=== PATIENT | male | born 1965 | race Caucasian/White ===

== ENCOUNTER 2017-02-18 11:23 | Emergency (ER) | payer OTHER ==
[~2017-02-18] VITALS: Ht 190.5 cm; Wt 88.5 kg
[~2017-02-18 11:23] MED LIST: ACET-929; AZITTAB11 PO; CELE100C82 PO; CYCL10TA3 PO; DIVA500T4; HYDR-2595; MECL25TA94 PO; SULF-169; [UNRECOGNIZED DRUG - OTHER] PO; ibuprofen PO
[2017-02-18 13:15] VITALS: BP 114/78
== END 2017-02-18 13:56 | disposition home or self-care (01) ==
LOC: ER 12:11
DX: R56.9 Unspecified convulsions (principal); F17.210 Nicotine dependence, cigarettes, uncomplicated; Z88.6 Allergy status to analgesic agent; Z91.018 Allergy to other foods; Z59.0 Homelessness; Z76.0 Encounter for issue of repeat prescription

== ENCOUNTER 2019-06-27 07:58 | Emergency (ER) | payer MEDICARE, MEDICAID ==
[~2019-06-27] VITALS: Ht 190.5 cm; Wt 96.2 kg
[2019-06-27 08:10] VITALS: BP 118/82
== END 2019-06-27 09:01 | disposition home or self-care (01) ==
LOC: ER 08:00
DX: L25.9 Unspecified contact dermatitis, unspecified cause (principal); F17.210 Nicotine dependence, cigarettes, uncomplicated; Z87.11 Personal history of peptic ulcer disease; Z76.0 Encounter for issue of repeat prescription; Z59.0 Homelessness; Z88.6 Allergy status to analgesic agent; Z79.899 Other long term (current) drug therapy

== ENCOUNTER 2019-07-26 10:09 | Emergency (ER) | payer MEDICARE, MEDICAID ==
[~2019-07-26] VITALS: Ht 190.5 cm; Wt 95.7 kg
[2019-07-26 10:30] VITALS: BP 132/75
== END 2019-07-26 11:27 | disposition home or self-care (01) ==
LOC: ER 10:15
DX: G40.909 Epilepsy, unspecified, not intractable, without status epilepticus (principal); Z76.0 Encounter for issue of repeat prescription; F17.210 Nicotine dependence, cigarettes, uncomplicated; Z88.8 Allergy status to other drugs, medicaments and biological substances; Z88.6 Allergy status to analgesic agent; Z79.899 Other long term (current) drug therapy; Z79.1 Long term (current) use of non-steroidal anti-inflammatories (NSAID)

== ENCOUNTER 2019-10-03 12:58 | Emergency (ER) | payer MEDICARE, MEDICAID ==
[~2019-10-03] VITALS: Ht 190.5 cm; Wt 95.7 kg
[2019-10-03 13:20] VITALS: BP 133/90
== END 2019-10-03 15:26 | disposition home or self-care (01) ==
LOC: ER 12:58
DX: G40.909 Epilepsy, unspecified, not intractable, without status epilepticus (principal); F17.210 Nicotine dependence, cigarettes, uncomplicated; Z87.11 Personal history of peptic ulcer disease; Z76.0 Encounter for issue of repeat prescription; Z59.0 Homelessness; Z88.8 Allergy status to other drugs, medicaments and biological substances

== ENCOUNTER 2019-11-28 14:22 | Emergency (ER) | payer MEDICARE, MEDICAID ==
[~2019-11-28] VITALS: Ht 190.5 cm; Wt 95.7 kg
[2019-11-28 14:41] VITALS: BP 125/85
== END 2019-11-28 16:30 | disposition home or self-care (01) ==
LOC: ER 14:22
DX: G40.909 Epilepsy, unspecified, not intractable, without status epilepticus (principal); Z76.0 Encounter for issue of repeat prescription; F17.210 Nicotine dependence, cigarettes, uncomplicated; Z88.6 Allergy status to analgesic agent; Z88.8 Allergy status to other drugs, medicaments and biological substances

== ENCOUNTER 2020-03-07 17:52 | Emergency (ER) | payer OTHER, MEDICAID | END 2020-03-07 22:42 | disposition left against medical advice (07) | LOC: EDUNIT# 17:52 → ER 17:52 → EDBD 17:52 → ER 22:42 | DX: R07.9 Chest pain, unspecified (principal); Z53.21 Procedure and treatment not carried out due to patient leaving prior to being seen by health care provider | CPT/HCPCS: 93005 ==

== ENCOUNTER → 2020-03-20 | Emergency (ER) | payer OTHER, MEDICAID ==
[~2020-03-20] VITALS: Ht 190.5 cm; Wt 95.3 kg
[~2020-03-20] MED LIST changes: +ETOMIDATE (2MG/ML) 20ML VIAL IV ONE; +SUCCINYLCHOLINE CHLORIDE 20 MG/ML 10ML VIAL IV ONE; +cefTRIAXone 1GM/50ML D5W 50 ML IV ONE
[2020-03-20 10:50] VITALS: BP 121/79
[2020-03-20 10:55] LABS: Basophils # (auto) 0 10 ^3/uL (0-0.2); Basophils % (auto) 0.4 % (0.0-2.0); Eosinophils # (auto) 0.1 10 ^3/uL (0-0.8); Eosinophils % (auto) 0.6 % (0.0-7.0); Hematocrit 46.5 % (41.0-53.0); Hemoglobin 15.8 g/dL (13.5-17.5); Lymphocytes # (auto) 1.4 10 ^3/uL (0.4-5.4); Lymphocytes % (auto) 16.3 % (10.0-50.0); Mean Corpuscular Hemoglobin 32.3 pg (28.0-32.0); Mean Corpuscular Hgb Conc. 33.9 g/dL (32.0-36.0); Mean Corpuscular Volume 95.4 fL (80.0-100.0); Monocytes % (auto) 11.4 % (0.0-12.0); Neutrophils # (auto) 6.1 10 ^3/uL (1.6-8.6); Neutrophils % (auto) 71.3 % (37.0-80.0); Nucleated Red Blood Cells % 0.1 %; Platelet Count (auto) 285 10^3/uL (140-450); Red Blood Cells 4.88 10^6/uL (4.5-5.90); Red Cell Distribution Width 13.3 % (11.8-14.3); White Blood Cell 8.6 10^3/uL (4.4-10.8)
[2020-03-20 11:07] LABS: Amphetamine Screen, Urine NEGATIVE (NEGATIVE); Barbiturate Scree,Urine NEGATIVE (NEGATIVE); Benzodiazephine Screen, Urine NEGATIVE (NEGATIVE); Cannabinoid Screen, Urine NEGATIVE (NEGATIVE); Cocaine Screen, Urine NEGATIVE (NEGATIVE); Opiate Scree,Urine NEGATIVE (NEGATIVE); Phencyclidine Screen, Urine NEGATIVE (NEGATIVE)
== END | disposition home or self-care (01) ==
LOC: EDUNIT# 10:06 → ER 10:19 → EDBD 10:19
DX: L03.113 Cellulitis of right upper limb (principal); Z88.6 Allergy status to analgesic agent; Z88.8 Allergy status to other drugs, medicaments and biological substances
CPT/HCPCS: 36415; 80307; 85025; 96374; 99283; J0696

== ENCOUNTER 2020-05-09 15:33 | Emergency (ER) | payer OTHER, MEDICAID ==
[~2020-05-09 15:33] MED LIST changes: -ETOMIDATE (2MG/ML) 20ML VIAL IV ONE; -SUCCINYLCHOLINE CHLORIDE 20 MG/ML 10ML VIAL IV ONE; -cefTRIAXone 1GM/50ML D5W 50 ML IV ONE
== END 2020-05-09 16:08 | disposition left against medical advice (07) ==
LOC: ER 15:33
DX: R53.1 Weakness (principal); Z53.21 Procedure and treatment not carried out due to patient leaving prior to being seen by health care provider
CPT/HCPCS: 93005

== ENCOUNTER 2020-05-27 21:29 | Emergency (ER) | payer OTHER, MEDICAID ==
[~2020-05-27] VITALS: Ht 182.9 cm; Wt 108.9 kg
[2020-05-27 22:46] LABS: Basophils # (auto) 0.1 10 ^3/uL (0-0.2); Eosinophils # (auto) 0.2 10 ^3/uL (0-0.8); Eosinophils % (auto) 2.1 % (0.0-7.0); Hemoglobin 14.7 g/dL (13.5-17.5); Lymphocytes # (auto) 2.7 10 ^3/uL (0.4-5.4); Lymphocytes % (auto) 34.7 % (10.0-50.0); Mean Corpuscular Hemoglobin 31.7 pg (28.0-32.0); Mean Corpuscular Hgb Conc. 33.3 g/dL (32.0-36.0); Mean Corpuscular Volume 95.2 fL (80.0-100.0); Monocytes # (auto) 0.9 10 ^3/uL (0-1.3); Monocytes % (auto) 11.8 % (0.0-12.0); Neutrophils % (auto) 50.4 % (37.0-80.0); Nucleated Red Blood Cells % 0.1 %; Platelet Count (auto) 241 10^3/uL (140-450); Red Blood Cells 4.62 10^6/uL (4.5-5.90); Red Cell Distribution Width 13.4 % (11.8-14.3); White Blood Cell 7.9 10^3/uL (4.4-10.8)
[2020-05-27 23:02] LABS: Partial Thromboplastin Time 23.5 sec (23.0-31.2)
[2020-05-27 23:07] LABS: Alanine Aminotransferase 75 U/L (16-61); Albumin 3.3 g/dL (3.4-5.0); Anion Gap 9 (5-15); Aspartate Aminotransferase 37 U/L (15-37); Blood Urea Nitrogen 9 mg/dL (7-18); Calcium 8.4 mg/dL (8.5-10.1); Carbon Dioxide 26 mmol/L (21-32); Chloride 105 mmol/L (98-107); GFR African American 114 mL/min; GFR Non-African American 94 mL/min; Glucose 102 mg/dL (74-106); Magnesium 2.4 mg/dL (1.6-2.6); Potassium 3.2 mmol/L (3.5-5.1); Sodium 140 mmol/L (136-145)
[2020-05-27] MEDS ORDERED: THIAMINE IV ONE (23:15)
[2020-05-27] MEDS ORDERED: SODIUM CHLORIDE 0.9% IV ONE (23:15)
[2020-05-27 23:19] LABS: Alkaline Phosphatase 40 U/L (45-117); Bilirubin, Total 0.5 mg/dL (0.2-1.0); Total Protein 6.9 g/dL (6.4-8.2)
[2020-05-27] MEDS ORDERED: THIAMINE 100mg/ml INJ (200mg/2ml VIAL) ONE (23:28)
[2020-05-28 00:33] LABS: Urine Bacteria NONE SEEN /hpf (None Seen); Urine Blood Negative /uL (Negative); Urine Specific Gravity 1.005 (1.001-1.035); Urine WBC <1 /hpf (0 - 3)
[2020-05-28 00:54] LABS: Amphetamine Screen, Urine NEGATIVE (NEGATIVE); Barbiturate Scree,Urine NEGATIVE (NEGATIVE); Benzodiazephine Screen, Urine NEGATIVE (NEGATIVE); Cannabinoid Screen, Urine NEGATIVE (NEGATIVE); Cocaine Screen, Urine NEGATIVE (NEGATIVE); Opiate Scree,Urine NEGATIVE (NEGATIVE); Phencyclidine Screen, Urine NEGATIVE (NEGATIVE)
[2020-05-28 03:30] VITALS: BP 106/68
== END 2020-05-28 03:42 | disposition home or self-care (01) ==
LOC: ER 21:29 → EDBD 21:29 → ER 05-28 03:42
DX: F10.239 Alcohol dependence with withdrawal, unspecified (principal); R42 Dizziness and giddiness; M48.00 Spinal stenosis, site unspecified; F17.210 Nicotine dependence, cigarettes, uncomplicated; Z59.0 Homelessness; Z88.6 Allergy status to analgesic agent; Z88.8 Allergy status to other drugs, medicaments and biological substances; Y90.9 Presence of alcohol in blood, level not specified
CPT/HCPCS: 36415; 70450; 71045; 80053; 80307; 80320; 81001; 82140; 83735; 83880; 84484; 85025; 85379; 85610; 85730; 93005; 96365; 99285; J3411; J7030

== ENCOUNTER 2020-09-27 18:48 | Emergency (ER) | payer OTHER, MEDICAID ==
[~2020-09-27] VITALS: Ht 190.5 cm; Wt 90.7 kg
[2020-09-27 19:15] VITALS: BP 131/94
[2020-09-27] MEDS ORDERED: GABAPENTIN 300 MG CAP PO ONE (19:30)
== END 2020-09-27 23:18 | disposition left against medical advice (07) ==
LOC: ER 18:48 → EDSEX 18:48 → EDBD 18:48 → ER 23:18
DX: M54.12 Radiculopathy, cervical region (principal); F17.210 Nicotine dependence, cigarettes, uncomplicated; Z79.899 Other long term (current) drug therapy; Z88.8 Allergy status to other drugs, medicaments and biological substances; Z88.6 Allergy status to analgesic agent

== ENCOUNTER 2021-04-03 17:05 | Emergency (ER) | payer OTHER, MEDICAID ==
[~2021-04-03] VITALS: Ht 190.5 cm; Wt 106.6 kg
[2021-04-03 18:45] LABS: Basophils # (auto) 0.1 10 ^3/uL (0-0.2); Basophils % (auto) 0.9 % (0.0-2.0); Eosinophils # (auto) 0.1 10 ^3/uL (0-0.8); Eosinophils % (auto) 1.5 % (0.0-7.0); Hematocrit 45.2 % (41.0-53.0); Hemoglobin 16.2 g/dL (13.5-17.5); Lymphocytes # (auto) 3.5 10 ^3/uL (0.4-5.4); Lymphocytes % (auto) 35.3 % (10.0-50.0); Mean Corpuscular Hemoglobin 33.4 pg (28.0-32.0); Mean Corpuscular Hgb Conc. 35.7 g/dL (32.0-36.0); Mean Corpuscular Volume 93.5 fL (80.0-100.0); Monocytes # (auto) 1.1 10 ^3/uL (0-1.3); Monocytes % (auto) 10.8 % (0.0-12.0); Neutrophils # (auto) 5.1 10 ^3/uL (1.6-8.6); Neutrophils % (auto) 51.5 % (37.0-80.0); Nucleated Red Blood Cells % 0.1 %; Platelet Count (auto) 307 10^3/uL (140-450); Red Blood Cells 4.84 10^6/uL (4.5-5.90); Red Cell Distribution Width 13.1 % (11.8-14.3); White Blood Cell 9.8 10^3/uL (4.4-10.8)
[2021-04-03 19:03] LABS: Albumin 4.1 g/dL (3.4-5.0); Calcium 8.9 mg/dL (8.5-10.1); Potassium 3.9 mmol/L (3.5-5.1)
[2021-04-03 19:06] LABS: BUN/Creatinine Ratio 14.3; Bilirubin, Total 0.4 mg/dL (0.2-1.0)
[2021-04-03] MEDS ORDERED: IOHEXOL 300 MG/ML 100ML BOTTLE IJ ONE ×2 (19:42→21:08)
[2021-04-03] MEDS ORDERED: SUCCINYLCHOLINE CHLORIDE 20 MG/ML 10ML VIAL IV ONE (19:45)
[2021-04-03] MEDS ORDERED: ETOMIDATE (2MG/ML) 20ML VIAL IV ONE (19:45)
[2021-04-03] MEDS ORDERED: LORazepam 2MG/ML-1ML VIAL ONE (19:53)
[2021-04-03] MEDS ORDERED: LORazepam 2MG/ML-1ML VIAL IM ONE (20:00)
[2021-04-03] MEDS ORDERED: SODIUM CHLORIDE 0.9% 3,000 ML IV ONE (20:00)
[2021-04-03 21:20] LABS: Salicylate 4.6 mg/dL (2.8-20.0)
[2021-04-03 21:23] LABS: Acetaminophen < 2.0 ug/mL (10-30)
[2021-04-03 22:43] LABS: Amphetamine Screen, Urine NEGATIVE (NEGATIVE); Barbiturate Scree,Urine NEGATIVE (NEGATIVE); Benzodiazephine Screen, Urine NEGATIVE (NEGATIVE); Cannabinoid Screen, Urine NEGATIVE (NEGATIVE); Cocaine Screen, Urine NEGATIVE (NEGATIVE); Opiate Scree,Urine NEGATIVE (NEGATIVE); Phencyclidine Screen, Urine NEGATIVE (NEGATIVE)
[2021-04-04 02:20] VITALS: BP 78/42
== END 2021-04-04 02:46 | disposition home or self-care (01) ==
LOC: ER 17:05 → EDBD 17:05 → ER 04-04 02:46
DX: S30.1XXA Contusion of abdominal wall, initial encounter (principal); F10.129 Alcohol abuse with intoxication, unspecified; R51.9 Headache, unspecified; F17.210 Nicotine dependence, cigarettes, uncomplicated; Y90.8 Blood alcohol level of 240 mg/100 ml or more; Z59.0 Homelessness; Z91.018 Allergy to other foods; Z88.6 Allergy status to analgesic agent; Z79.899 Other long term (current) drug therapy; W18.09XA Striking against other object with subsequent fall, initial encounter; Y93.89 Activity, other specified; Y92.89 Other specified places as the place of occurrence of the external cause; Y99.8 Other external cause status
CPT/HCPCS: 36415; 70450; 71260; 74177; 80053; 80307; 80329; 82962; 85025; 96360; 96361; 99285; J0330; J2060; Q9967

== ENCOUNTER 2021-05-09 18:29 | Emergency (ER) | payer OTHER, MEDICAID ==
[~2021-05-09] VITALS: Ht 190.5 cm; Wt 83.5 kg
[2021-05-09] MEDS ORDERED: SODIUM CHLORIDE 0.9% 500 ML IV ONE (18:45)
[2021-05-09 19:13] LABS: Basophils # (auto) 0.1 10 ^3/uL (0-0.2); Eosinophils # (auto) 0.2 10 ^3/uL (0-0.8); Eosinophils % (auto) 2.1 % (0.0-7.0); Hematocrit 42.1 % (41.0-53.0); Hemoglobin 14.5 g/dL (13.5-17.5); Lymphocytes # (auto) 2.1 10 ^3/uL (0.4-5.4); Lymphocytes % (auto) 21.5 % (10.0-50.0); Mean Corpuscular Hemoglobin 33.2 pg (28.0-32.0); Mean Corpuscular Hgb Conc. 34.5 g/dL (32.0-36.0); Mean Corpuscular Volume 96.3 fL (80.0-100.0); Monocytes # (auto) 1.5 10 ^3/uL (0-1.3); Monocytes % (auto) 15.3 % (0.0-12.0); Neutrophils # (auto) 5.9 10 ^3/uL (1.6-8.6); Neutrophils % (auto) 60.1 % (37.0-80.0); Red Blood Cells 4.37 10^6/uL (4.5-5.90); Red Cell Distribution Width 13.4 % (11.8-14.3); White Blood Cell 9.9 10^3/uL (4.4-10.8)
[2021-05-09 19:28] LABS: Albumin 4.1 g/dL (3.4-5.0); Anion Gap 8 (5-15); Blood Urea Nitrogen 18 mg/dL (7-18); Calcium 8.5 mg/dL (8.5-10.1); Carbon Dioxide 26 mmol/L (21-32); Chloride 108 mmol/L (98-107); Glucose 83 mg/dL (74-106); Potassium 3.4 mmol/L (3.5-5.1); Sodium 142 mmol/L (136-145)
[2021-05-09 19:30] LABS: Alanine Aminotransferase 42 U/L (16-61); Aspartate Aminotransferase 33 U/L (15-37); BUN/Creatinine Ratio 18.2; GFR African American 102 mL/min; GFR Non-African American 84 mL/min
[2021-05-09 19:32] LABS: Alkaline Phosphatase 38 U/L (45-117); Bilirubin, Total 0.8 mg/dL (0.2-1.0); Blood Alcohol < 3.0 mg/dL (0-5); Total Protein 7.4 g/dL (6.4-8.2)
[2021-05-09 20:00] VITALS: BP 125/80
== END 2021-05-09 20:46 | disposition home or self-care (01) ==
LOC: EDBD 18:29 → ER 18:31
DX: M54.2 Cervicalgia (principal); G89.29 Other chronic pain; R51.9 Headache, unspecified; F10.20 Alcohol dependence, uncomplicated; R56.9 Unspecified convulsions; F17.210 Nicotine dependence, cigarettes, uncomplicated; Y90.0 Blood alcohol level of less than 20 mg/100 ml; Z88.6 Allergy status to analgesic agent; Z91.018 Allergy to other foods; Z79.899 Other long term (current) drug therapy; Z87.11 Personal history of peptic ulcer disease
CPT/HCPCS: 36415; 70450; 80053; 80320; 85025; 96360

== ENCOUNTER 2021-07-07 19:50 | Emergency (ER) | payer OTHER, MEDICAID ==
[~2021-07-07] VITALS: Ht 190.5 cm; Wt 81.6 kg
[2021-07-07] MEDS ORDERED: SODIUM CHLORIDE 0.9% 1,000 ML IV ONE (20:45)
[2021-07-07] MEDS ORDERED: MECLIZINE HCL 25 MG TAB PO ONE (21:00)
[2021-07-07 21:26] LABS: Basophils # (auto) 0.1 10 ^3/uL (0-0.2); Basophils % (auto) 1.1 % (0.0-2.0); Eosinophils # (auto) 0 10 ^3/uL (0-0.8); Eosinophils % (auto) 0.3 % (0.0-7.0); Hematocrit 45.5 % (41.0-53.0); Hemoglobin 15.6 g/dL (13.5-17.5); Lymphocytes # (auto) 1.4 10 ^3/uL (0.4-5.4); Mean Corpuscular Hemoglobin 32.4 pg (28.0-32.0); Mean Corpuscular Hgb Conc. 34.4 g/dL (32.0-36.0); Mean Corpuscular Volume 94.2 fL (80.0-100.0); Monocytes # (auto) 0.8 10 ^3/uL (0-1.3); Monocytes % (auto) 14.5 % (0.0-12.0); Neutrophils # (auto) 3.2 10 ^3/uL (1.6-8.6); Neutrophils % (auto) 59.1 % (37.0-80.0); Red Blood Cells 4.83 10^6/uL (4.5-5.90); Red Cell Distribution Width 12.9 % (11.8-14.3); White Blood Cell 5.5 10^3/uL (4.4-10.8)
[2021-07-07 21:39] LABS: Chloride 102 mmol/L (98-107); Potassium 3.8 mmol/L (3.5-5.1); Sodium 136 mmol/L (136-145)
[2021-07-07 21:45] LABS: Alanine Aminotransferase 58 U/L (16-61); Albumin 3.7 g/dL (3.4-5.0); Alkaline Phosphatase 44 U/L (45-117); Anion Gap 10 (5-15); Aspartate Aminotransferase 36 U/L (15-37); BUN/Creatinine Ratio 5.4; Bilirubin, Total 0.3 mg/dL (0.2-1.0); Blood Urea Nitrogen 5 mg/dL (7-18); Calcium 8.1 mg/dL (8.5-10.1); Carbon Dioxide 24 mmol/L (21-32); GFR African American 109 mL/min; GFR Non-African American 90 mL/min; Glucose 92 mg/dL (74-106); Total Protein 7.6 g/dL (6.4-8.2)
[2021-07-08 04:35] VITALS: BP 136/71
== END 2021-07-08 04:38 | disposition left against medical advice (07) ==
LOC: EDBD 19:50 → ER 19:53
DX: R42 Dizziness and giddiness (principal); F17.210 Nicotine dependence, cigarettes, uncomplicated; Z59.0 Homelessness; Z88.6 Allergy status to analgesic agent
CPT/HCPCS: 36415; 70450; 71045; 72125; 80053; 84484; 85025; 93005; 99285; J8597

== ENCOUNTER 2021-08-26 15:20 | Emergency (ER) | payer OTHER, MEDICAID ==
[2021-08-26] MEDS ORDERED: traMADol HCL 50 MG TAB PO ONE (16:00)
[2021-08-26 17:35] LABS: Urine Bacteria NONE SEEN /hpf (None Seen); Urine Blood Negative /uL (Negative); Urine Mucus FEW (None Seen); Urine Specific Gravity 1.024 (1.001-1.035); Urine WBC <1 /hpf (0 - 3)
[2021-08-26 18:14] VITALS: BP 125/73
== END 2021-08-26 18:18 | disposition home or self-care (01) ==
LOC: EDBD 15:20 → ER 15:20 → EDUNIT# 15:20 → ER 18:16
DX: R10.9 Unspecified abdominal pain (principal); M54.9 Dorsalgia, unspecified; F17.210 Nicotine dependence, cigarettes, uncomplicated; Z79.899 Other long term (current) drug therapy; Z79.2 Long term (current) use of antibiotics; Z88.6 Allergy status to analgesic agent; Z88.8 Allergy status to other drugs, medicaments and biological substances
CPT/HCPCS: 74176; 81001

== ENCOUNTER 2021-10-05 20:52 | Emergency (ER) | payer OTHER, MEDICAID ==
[~2021-10-05] VITALS: Ht 190.5 cm; Wt 81.6 kg
[2021-10-05 22:33] LABS: Basophils # (auto) 0.1 10 ^3/uL (0-0.2); Basophils % (auto) 0.9 % (0.0-2.0); Eosinophils # (auto) 0.2 10 ^3/uL (0-0.8); Hematocrit 45.4 % (41.0-53.0); Hemoglobin 15.1 g/dL (13.5-17.5); Lymphocytes # (auto) 1.9 10 ^3/uL (0.4-5.4); Lymphocytes % (auto) 22.4 % (10.0-50.0); Mean Corpuscular Hemoglobin 32.2 pg (28.0-32.0); Mean Corpuscular Hgb Conc. 33.3 g/dL (32.0-36.0); Mean Corpuscular Volume 96.8 fL (80.0-100.0); Monocytes # (auto) 1.4 10 ^3/uL (0-1.3); Monocytes % (auto) 16.4 % (0.0-12.0); Neutrophils % (auto) 58.3 % (37.0-80.0); Nucleated Red Blood Cells % 0.1 %; Red Blood Cells 4.69 10^6/uL (4.5-5.90); Red Cell Distribution Width 13.3 % (11.8-14.3); White Blood Cell 8.5 10^3/uL (4.4-10.8)
[2021-10-05 22:55] LABS: Calcium 8.2 mg/dL (8.5-10.1)
[2021-10-05 23:03] LABS: Albumin 3.7 g/dL (3.4-5.0); BUN/Creatinine Ratio 16.3; Bilirubin, Total 0.5 mg/dL (0.2-1.0); Total Protein 6.7 g/dL (6.4-8.2)
[2021-10-05] MEDS ORDERED: LACTATED RINGER'S 1,000 ML IV ONE (23:15)
[2021-10-05] MEDS ORDERED: POTASSIUM CHL 20MEQ/100ML 100 ML IV ONE (23:15)
[2021-10-06] MEDS ORDERED: levETIRAcetam 500 MG/5ML INJ IV ONE (04:16)
[2021-10-06 04:42] LABS: Amphetamine Screen, Urine POSITIVE (NEGATIVE); Barbiturate Scree,Urine NEGATIVE (NEGATIVE); Benzodiazephine Screen, Urine NEGATIVE (NEGATIVE); Cannabinoid Screen, Urine NEGATIVE (NEGATIVE); Cocaine Screen, Urine NEGATIVE (NEGATIVE); Opiate Scree,Urine NEGATIVE (NEGATIVE); Phencyclidine Screen, Urine NEGATIVE (NEGATIVE)
[2021-10-06 05:00] VITALS: BP 110/59
[2021-10-06] MEDS ORDERED: MECLIZINE HCL 25 MG TAB PO ONE (06:00)
== END 2021-10-06 07:46 | disposition home or self-care (01) ==
LOC: EDBD 20:52 → EDUNIT# 20:52 → ER 20:55
DX: R42 Dizziness and giddiness (principal); R20.0 Anesthesia of skin; M79.642 Pain in left hand; M79.641 Pain in right hand; F17.210 Nicotine dependence, cigarettes, uncomplicated; F10.20 Alcohol dependence, uncomplicated; Z20.822 Contact with and (suspected) exposure to COVID-19; Z87.11 Personal history of peptic ulcer disease; Z79.899 Other long term (current) drug therapy; Z88.1 Allergy status to other antibiotic agents; Z88.6 Allergy status to analgesic agent; Y90.7 Blood alcohol level of 200-239 mg/100 ml
CPT/HCPCS: 36415; 70450; 71045; 80053; 80307; 80320; 84484; 85025; 87426; 93005; 96361; 96365; 99285; J1953; J3480; J8597; J7060

== ENCOUNTER 2021-12-19 21:20 | Emergency (ER) | payer OTHER, MEDICAID ==
[~2021-12-19] VITALS: Ht 182.9 cm; Wt 77.1 kg
[2021-12-19 23:36] VITALS: BP 95/54
[2021-12-19 23:38] LABS: Basophils # (auto) 0.1 10 ^3/uL (0-0.2); Basophils % (auto) 1.5 % (0.0-2.0); Eosinophils # (auto) 0.2 10 ^3/uL (0-0.8); Eosinophils % (auto) 3.6 % (0.0-7.0); Hematocrit 39.4 % (41.0-53.0); Hemoglobin 13.7 g/dL (13.5-17.5); Lymphocytes # (auto) 2.6 10 ^3/uL (0.4-5.4); Lymphocytes % (auto) 41.6 % (10.0-50.0); Mean Corpuscular Hemoglobin 33.9 pg (28.0-32.0); Mean Corpuscular Hgb Conc. 34.8 g/dL (32.0-36.0); Mean Corpuscular Volume 97.4 fL (80.0-100.0); Monocytes # (auto) 0.7 10 ^3/uL (0-1.3); Monocytes % (auto) 11.2 % (0.0-12.0); Neutrophils # (auto) 2.6 10 ^3/uL (1.6-8.6); Neutrophils % (auto) 42.1 % (37.0-80.0); Nucleated Red Blood Cells % 0.1 %; Red Blood Cells 4.04 10^6/uL (4.5-5.90); Red Cell Distribution Width 13.8 % (11.8-14.3); White Blood Cell 6.2 10^3/uL (4.4-10.8)
[2021-12-20 00:02] LABS: Potassium 3.5 mmol/L (3.5-5.1)
[2021-12-20 00:06] LABS: Albumin 3.2 g/dL (3.4-5.0); BUN/Creatinine Ratio 9.5; Calcium 7.8 mg/dL (8.5-10.1)
[2021-12-20 00:09] LABS: Acetaminophen < 2.0 ug/mL (10-30); Bilirubin, Total 0.1 mg/dL (0.2-1.0); Salicylate 3.9 mg/dL (2.8-20.0); Total Protein 6.1 g/dL (6.4-8.2)
== END 2021-12-20 03:50 | disposition home or self-care (01) ==
LOC: EDBD 21:20 → ER 21:24
DX: F10.129 Alcohol abuse with intoxication, unspecified (principal); R56.9 Unspecified convulsions; F17.210 Nicotine dependence, cigarettes, uncomplicated; Z59.00 Homelessness unspecified; Z79.899 Other long term (current) drug therapy; Z88.6 Allergy status to analgesic agent; Z88.8 Allergy status to other drugs, medicaments and biological substances; Y90.7 Blood alcohol level of 200-239 mg/100 ml
CPT/HCPCS: 36415; 72040; 73502; 80053; 80320; 80329; 85025

== ENCOUNTER 2022-04-15 23:47 | Emergency (ER) | payer OTHER, MEDICAID ==
[~2022-04-15] VITALS: Ht 190.5 cm; Wt 99.8 kg
[2022-04-16 05:42] VITALS: BP 129/85
== END 2022-04-16 06:20 | disposition home or self-care (01) ==
LOC: EDBD 23:47 → ER 23:47
DX: S16.1XXA Strain of muscle, fascia and tendon at neck level, initial encounter (principal); F17.210 Nicotine dependence, cigarettes, uncomplicated; Z88.6 Allergy status to analgesic agent; W18.39XA Other fall on same level, initial encounter; Y93.89 Activity, other specified; Y92.89 Other specified places as the place of occurrence of the external cause; Y99.8 Other external cause status
CPT/HCPCS: 70450; 71045; 72125

== ENCOUNTER 2022-05-03 20:32 | Emergency (ER) | payer OTHER, MEDICAID ==
[~2022-05-03] VITALS: Ht 182.9 cm; Wt 72.6 kg
[2022-05-03 20:40] VITALS: BP 132/88
== END 2022-05-04 01:38 | disposition left against medical advice (07) ==
LOC: ER 20:32 → EDBD 20:32 → ER 05-04 01:38
DX: R07.9 Chest pain, unspecified (principal); F10.10 Alcohol abuse, uncomplicated; Z53.21 Procedure and treatment not carried out due to patient leaving prior to being seen by health care provider
CPT/HCPCS: 93005

== ENCOUNTER 2023-01-28 08:56 | Emergency (ER) | payer OTHER, MEDICAID ==
[~2023-01-28] VITALS: Ht 190.5 cm; Wt 88.6 kg
[2023-01-28 10:02] LABS: Urine WBC None Seen /hpf (0 - 3)
[2023-01-28 10:21] LABS: Urine Bacteria NONE SEEN /hpf (None Seen); Urine Blood Negative /uL (Negative); Urine Specific Gravity 1.006 (1.001-1.035)
[2023-01-28 10:23] LABS: Amphetamine Screen, Urine POSITIVE (NEGATIVE); Barbiturate Scree,Urine NEGATIVE (NEGATIVE); Cannabinoid Screen, Urine NEGATIVE (NEGATIVE)
[2023-01-28 10:30] LABS: Benzodiazephine Screen, Urine NEGATIVE (NEGATIVE); Cocaine Screen, Urine NEGATIVE (NEGATIVE); Opiate Scree,Urine NEGATIVE (NEGATIVE); Phencyclidine Screen, Urine NEGATIVE (NEGATIVE)
[2023-01-28 10:42] LABS: Basophils # (auto) 0.1 10 ^3/uL (0-0.2); Basophils % (auto) 1.4 % (0.0-2.0); Eosinophils # (auto) 0.2 10 ^3/uL (0-0.8); Eosinophils % (auto) 2.2 % (0.0-7.0); Hematocrit 46.2 % (41.0-53.0); Hemoglobin 15.7 g/dL (13.5-17.5); Lymphocytes # (auto) 1.5 10 ^3/uL (0.4-5.4); Lymphocytes % (auto) 19.1 % (10.0-50.0); Mean Corpuscular Hemoglobin 32.8 pg (28.0-32.0); Mean Corpuscular Hgb Conc. 34.1 g/dL (32.0-36.0); Mean Corpuscular Volume 96.3 fL (80.0-100.0); Monocytes # (auto) 0.9 10 ^3/uL (0-1.3); Monocytes % (auto) 11.6 % (0.0-12.0); Neutrophils # (auto) 5.1 10 ^3/uL (1.6-8.6); Neutrophils % (auto) 65.7 % (37.0-80.0); Nucleated Red Blood Cells % 0.1 %; Red Cell Distribution Width 12.6 % (11.8-14.3); White Blood Cell 7.8 10^3/uL (4.4-10.8)
[2023-01-28 10:55] LABS: INR 0.93 (0.9-1.15)
[2023-01-28 11:01] LABS: Albumin 3.6 g/dL (3.4-5.0); Calcium 8.9 mg/dL (8.5-10.1); Potassium 3.9 mmol/L (3.5-5.1)
[2023-01-28 11:05] LABS: BUN/Creatinine Ratio 13.7 (10.0-20.0); Bilirubin, Total 0.4 mg/dL (0.2-1.0); Total Protein 7.2 g/dL (6.4-8.2)
[2023-01-28] MEDS ORDERED: CLINDAMYCIN 600MG IV 50 ML IV ONE (11:45)
[2023-01-28] MEDS ORDERED: cefTRIAXone 1GM/50ML D5W 50 ML IV ONE ×2 (11:45→14:15)
[2023-01-28 12:25] VITALS: BP 112/68
[2023-01-28] MEDS ORDERED: IOHEXOL 300 MG/ML 100ML BOTTLE IJ ONE (12:29)
[2023-01-28] MEDS ORDERED: LEVO500T31 PO ×2 (14:54→18:24)
[2023-01-28] MEDS ORDERED: CLIN300C8 PO (14:54)
[2023-01-28] MEDS ORDERED: methylPREDNISolone SOD SUCC 125 MG/2 ML VL IV ONE (15:15)
[2023-01-28] MEDS ORDERED: CLIN-203 PO (18:24)
== END 2023-01-28 18:59 | disposition home or self-care (01) ==
LOC: ER 08:56 → EDBD 08:56 → ER 18:57
DX: A46 Erysipelas (principal); F15.10 Other stimulant abuse, uncomplicated; F17.210 Nicotine dependence, cigarettes, uncomplicated; Z59.00 Homelessness unspecified; Z79.2 Long term (current) use of antibiotics; Z79.1 Long term (current) use of non-steroidal anti-inflammatories (NSAID); Z79.899 Other long term (current) drug therapy; Z88.6 Allergy status to analgesic agent; Z88.8 Allergy status to other drugs, medicaments and biological substances
CPT/HCPCS: 36415; 73701; 80053; 80307; 81001; 83605; 85025; 85610; 87040; 93005; 93971; 96365; 96375; 99285; J0696; J2930; Q9967

== ENCOUNTER 2023-01-28 19:53 | Emergency (ER) | payer OTHER, MEDICAID ==
[~2023-01-28 19:53] MED LIST changes: +CLIN-203 PO; +CLIN300C8 PO; +LEVO500T31 PO
== END 2023-01-28 20:02 | disposition left against medical advice (07) ==
LOC: ER 19:53
DX: R21 Rash and other nonspecific skin eruption (principal); Z53.21 Procedure and treatment not carried out due to patient leaving prior to being seen by health care provider

== ENCOUNTER 2023-03-18 22:31 | Emergency (ER) | payer OTHER, MEDICAID ==
[~2023-03-18] VITALS: Ht 190.5 cm; Wt 80.0 kg
[2023-03-18 23:00] LABS: Basophils # (auto) 0.1 10 ^3/uL (0-0.2); Basophils % (auto) 0.9 % (0.0-2.0); Eosinophils # (auto) 0.2 10 ^3/uL (0-0.8); Eosinophils % (auto) 2.8 % (0.0-7.0); Hematocrit 42.3 % (41.0-53.0); Hemoglobin 14.8 g/dL (13.5-17.5); Lymphocytes # (auto) 2.5 10 ^3/uL (0.4-5.4); Lymphocytes % (auto) 33.7 % (10.0-50.0); Mean Corpuscular Hemoglobin 33.7 pg (28.0-32.0); Mean Corpuscular Hgb Conc. 34.9 g/dL (32.0-36.0); Mean Corpuscular Volume 96.5 fL (80.0-100.0); Monocytes # (auto) 1.2 10 ^3/uL (0-1.3); Neutrophils # (auto) 3.4 10 ^3/uL (1.6-8.6); Neutrophils % (auto) 46.6 % (37.0-80.0); Nucleated Red Blood Cells % 0.1 %; Red Blood Cells 4.38 10^6/uL (4.5-5.90); Red Cell Distribution Width 13.6 % (11.8-14.3); White Blood Cell 7.4 10^3/uL (4.4-10.8)
[2023-03-18 23:07] LABS: Urine WBC None Seen /hpf (0 - 3)
[2023-03-18 23:14] LABS: Urine Bacteria NONE SEEN /hpf (None Seen); Urine Blood Negative /uL (Negative); Urine Specific Gravity 1.002 (1.001-1.035)
[2023-03-18 23:18] LABS: Albumin 3.6 g/dL (3.4-5.0); BUN/Creatinine Ratio 10.7 (10.0-20.0); Calcium 8.6 mg/dL (8.5-10.1); Magnesium 2.1 mg/dL (1.6-2.6); Potassium 3.6 mmol/L (3.5-5.1)
[2023-03-18 23:21] LABS: Bilirubin, Total 0.7 mg/dL (0.2-1.0); INR 0.92 (0.9-1.15); Partial Thromboplastin Time 25.3 sec (24.6-33.4); Total Protein 7.2 g/dL (6.4-8.2)
[2023-03-19] VITALS: BP 111/80
[2023-03-19] MEDS ORDERED: NITROGLYCERIN 2% OINT 1GM PKG TD STA (00:57)
[2023-03-19] MEDS ORDERED: ACETAMINOPHEN 325 MG TAB PO ONE (01:00)
[2023-03-19] MEDS ORDERED: SODIUM CHLORIDE 0.9% 1,000 ML IVB ONE (01:00)
[2023-03-19] MEDS ORDERED: ASPirin 81 mg TAB PO ONE (01:00)
[2023-03-19] MEDS ORDERED: ONDANSETRON HCL 4 MG/2 ML VIAL IV ONE (01:00)
[2023-03-19] MEDS ORDERED: PANTOPRAZOLE 40 MG/10 ML VIAL INJ IV ONE (01:15)
[2023-03-19] MEDS ORDERED: HYDROmorphone HCL 2 MG/ML VL/or syr IV ONE (01:15)
[2023-03-19 01:39] LABS: Amphetamine Screen, Urine NEGATIVE (NEGATIVE); Barbiturate Scree,Urine NEGATIVE (NEGATIVE); Benzodiazephine Screen, Urine NEGATIVE (NEGATIVE); Cocaine Screen, Urine NEGATIVE (NEGATIVE); Phencyclidine Screen, Urine NEGATIVE (NEGATIVE)
[2023-03-19 01:48] LABS: Cannabinoid Screen, Urine NEGATIVE (NEGATIVE); Opiate Scree,Urine NEGATIVE (NEGATIVE)
== END 2023-03-19 03:25 | disposition left against medical advice (07) ==
LOC: ER 22:31 → EDBD 22:31 → ER 03-19 03:25
DX: R07.89 Other chest pain (principal); F17.210 Nicotine dependence, cigarettes, uncomplicated; F15.10 Other stimulant abuse, uncomplicated; Z59.00 Homelessness unspecified; Z88.1 Allergy status to other antibiotic agents; Z88.6 Allergy status to analgesic agent; Z79.899 Other long term (current) drug therapy
CPT/HCPCS: 36415; 71045; 80053; 80307; 80320; 81001; 83735; 83880; 84484; 85025; 85610; 85730; 93005

== ENCOUNTER 2023-03-19 04:20 | Emergency (ER) | payer OTHER, MEDICAID ==
[~2023-03-19] VITALS: Ht 177.8 cm; Wt 90.0 kg
[~2023-03-19 04:20] MED LIST changes: +CLIN300C70 PO; -CLIN300C8 PO; +DIVA-93; -DIVA500T4
[2023-03-19 04:39] VITALS: BP 127/89
[2023-03-19 04:59] LABS: Eosinophils # (auto) 0.2 10 ^3/uL (0-0.8); Lymphocytes # (auto) 1.8 10 ^3/uL (0.4-5.4); Monocytes # (auto) 0.9 10 ^3/uL (0-1.3)
[2023-03-19 05:02] LABS: Basophils # (auto) 0.1 10 ^3/uL (0-0.2); Basophils % (auto) 1.3 % (0.0-2.0); Eosinophils % (auto) 3.6 % (0.0-7.0); Hematocrit 42.7 % (41.0-53.0); Lymphocytes % (auto) 30.4 % (10.0-50.0); Mean Corpuscular Hemoglobin 34.1 pg (28.0-32.0); Mean Corpuscular Hgb Conc. 35.1 g/dL (32.0-36.0); Mean Corpuscular Volume 97.3 fL (80.0-100.0); Monocytes % (auto) 15.9 % (0.0-12.0); Neutrophils # (auto) 2.8 10 ^3/uL (1.6-8.6); Neutrophils % (auto) 48.8 % (37.0-80.0); Red Blood Cells 4.38 10^6/uL (4.5-5.90); Red Cell Distribution Width 13.6 % (11.8-14.3); White Blood Cell 5.8 10^3/uL (4.4-10.8)
[2023-03-19 05:19] LABS: INR 0.92 (0.9-1.15); Partial Thromboplastin Time 25.5 sec (24.6-33.4)
[2023-03-19 05:20] LABS: Calcium 8.7 mg/dL (8.5-10.1); Magnesium 2.1 mg/dL (1.6-2.6); Potassium 3.9 mmol/L (3.5-5.1)
[2023-03-19 05:23] LABS: BUN/Creatinine Ratio 8.6 (10.0-20.0); Bilirubin, Total 0.7 mg/dL (0.2-1.0); Total Protein 7.2 g/dL (6.4-8.2)
[2023-03-19] MEDS ORDERED: ASPirin 81 mg TAB PO ONE (07:30)
== END 2023-03-19 07:37 | disposition left against medical advice (07) ==
LOC: EDBD 04:20 → ER 04:20
DX: R07.89 Other chest pain (principal); Z53.21 Procedure and treatment not carried out due to patient leaving prior to being seen by health care provider
CPT/HCPCS: 36415; 80053; 80320; 83735; 83880; 84484; 85025; 85379; 85610; 85730; 93005

== ENCOUNTER 2023-07-14 16:18 | Emergency (ER) | payer OTHER, MEDICAID ==
[~2023-07-14] VITALS: Ht 5.1 cm; Wt 72.7 kg
[2023-07-14] MEDS ORDERED: KETOROLAC TROMETH 30 MG/ML 1ML VIAL IV ONE (17:00)
[2023-07-14] MEDS ORDERED: ONDANSETRON HCL 4 MG/2 ML VIAL IV ONE (17:00)
[2023-07-14] MEDS ORDERED: SODIUM CHLORIDE 0.9% 1,000 ML IV ONE (17:00)
[2023-07-14 17:22] LABS: Urine Bacteria NONE SEEN /hpf (None Seen); Urine Blood Negative /uL (Negative); Urine Clarity Clear (Clear); Urine Color Colorless (Yellow); Urine Protein, UAD Negative (Negative); Urine Specific Gravity 1.004 (1.001-1.035); Urine Urobilinogen Normal (Negative); Urine WBC <1 /hpf (0 - 3); Urine pH 5.5 (5.0-8.0)
[2023-07-14 17:36] LABS: Amphetamine Screen, Urine Pos (NEGATIVE); Barbiturate Scree,Urine Neg (NEGATIVE); Benzodiazephine Screen, Urine Neg (NEGATIVE); Cocaine Screen, Urine Neg (NEGATIVE); Opiate Scree,Urine Neg (NEGATIVE)
[2023-07-14 17:37] LABS: Cannabinoid Screen, Urine Neg (NEGATIVE); Phencyclidine Screen, Urine Neg (NEGATIVE)
[2023-07-14 17:42] LABS: Basophils # (auto) 0.1 10 ^3/uL (0-0.2); Basophils % (auto) 1.1 % (0.0-2.0); Eosinophils # (auto) 0.3 10 ^3/uL (0-0.8); Eosinophils % (auto) 3.9 % (0.0-7.0); Hematocrit 43.2 % (41.0-53.0); Hemoglobin 14.7 g/dL (13.5-17.5); Lymphocytes # (auto) 1.7 10 ^3/uL (0.4-5.4); Lymphocytes % (auto) 19.7 % (10.0-50.0); Mean Corpuscular Hemoglobin 33.3 pg (28.0-32.0); Mean Corpuscular Volume 97.9 fL (80.0-100.0); Monocytes # (auto) 1.3 10 ^3/uL (0-1.3); Monocytes % (auto) 15.7 % (0.0-12.0); Neutrophils # (auto) 5.1 10 ^3/uL (1.6-8.6); Neutrophils % (auto) 59.6 % (37.0-80.0); Red Blood Cells 4.41 10^6/uL (4.5-5.90); Red Cell Distribution Width 14.5 % (11.8-14.3); White Blood Cell 8.5 10^3/uL (4.4-10.8)
[2023-07-14 17:56] LABS: Alkaline Phosphatase 53 U/L (46-116); Anion Gap 9 (5-15); Aspartate Aminotransferase 51 U/L (13-40); Blood Alcohol < 3.0 mg/dL (<10); Calcium 8.7 mg/dL (8.7-10.4); Carbon Dioxide 22 mmol/L (20-30); Chloride 106 mmol/L (98-107); Glucose 89 mg/dL (74-106); Magnesium 1.6 mg/dL (1.6-2.6); Sodium 137 mmol/L (136-145)
[2023-07-14 17:57] LABS: Albumin 4.3 g/dL (3.2-4.8); Bilirubin, Total 0.8 mg/dL (0.2-1.0); Total Protein 6.9 g/dL (5.7-8.2)
[2023-07-14 18:01] LABS: Alanine Aminotransferase 31 U/L (7-40); Lipase 64 U/L (12-53)
[2023-07-14 18:02] LABS: BUN/Creatinine Ratio 7.2 (10.0-20.0); Blood Urea Nitrogen 6 mg/dL (9-23)
[2023-07-14] MEDS ORDERED: DICY10CA PO (19:47)
[2023-07-14] MEDS ORDERED: ZOFR4T PO (19:47)
[2023-07-14 20:10] VITALS: BP 123/81; PULSE 85; RESP 18; TEMP 97.8; O2SAT 98
== END 2023-07-14 20:48 | disposition home or self-care (01) ==
LOC: ER 16:18 → EDBD 16:18 → EDUNIT# 16:18 → ER 20:34
DX: R10.13 Epigastric pain (principal); F15.10 Other stimulant abuse, uncomplicated; F17.210 Nicotine dependence, cigarettes, uncomplicated; F10.10 Alcohol abuse, uncomplicated; Z59.00 Homelessness unspecified; Z79.899 Other long term (current) drug therapy
CPT/HCPCS: 36415; 74176; 80053; 80307; 80320; 81001; 83605; 83690; 83735; 84484; 85025; 93005; 96361; 96374; 96375; 99285; J1885; J2405; J7030

== ENCOUNTER 2023-10-04 15:58 | Emergency (ER) | payer OTHER, MEDICAID ==
[~2023-10-04] VITALS: Ht 182.9 cm; Wt 77.1 kg
[~2023-10-04 15:58] MED LIST changes: +DICY10CA PO; +ZOFR4T PO
[2023-10-04] MEDS ORDERED: KETOROLAC TROMETH 60MG/2ML VIAL IM ONE (17:15)
[2023-10-04] MEDS ORDERED: TETANUS-DIPTH-ACEL PERTUSSIS 0.5ML SYR Tdap IM ONE (17:15)
[2023-10-04 18:25] LABS: Alanine Aminotransferase 15 U/L (7-40); Albumin 4.5 g/dL (3.2-4.8); Alkaline Phosphatase 54 U/L (46-116); Anion Gap 6 (5-15); Aspartate Aminotransferase 10 U/L (13-40); Bilirubin, Total 0.3 mg/dL (0.2-1.0); Blood Alcohol 149.1 mg/dL (<10); Calcium 8.9 mg/dL (8.7-10.4); Carbon Dioxide 28 mmol/L (20-30); Chloride 108 mmol/L (98-107); Glucose 100 mg/dL (74-106); Lipase 47 U/L (12-53); Sodium 142 mmol/L (136-145)
[2023-10-04 18:29] VITALS: BP 139/94; PULSE 99; RESP 18; TEMP 97.8; O2SAT 100
[2023-10-04 18:35] LABS: Basophils # (auto) 0.1 10 ^3/uL (0-0.2); Basophils % (auto) 0.8 % (0.0-2.0); Eosinophils # (auto) 0.4 10 ^3/uL (0-0.8); Eosinophils % (auto) 4.4 % (0.0-7.0); Hematocrit 44.2 % (41.0-53.0); Hemoglobin 14.9 g/dL (13.5-17.5); Lymphocytes # (auto) 2.5 10 ^3/uL (0.4-5.4); Lymphocytes % (auto) 25.8 % (10.0-50.0); Mean Corpuscular Hemoglobin 32.6 pg (28.0-32.0); Mean Corpuscular Hgb Conc. 33.8 g/dL (32.0-36.0); Mean Corpuscular Volume 96.4 fL (80.0-100.0); Monocytes # (auto) 0.9 10 ^3/uL (0-1.3); Monocytes % (auto) 8.7 % (0.0-12.0); Neutrophils # (auto) 5.9 10 ^3/uL (1.6-8.6); Neutrophils % (auto) 60.3 % (37.0-80.0); Red Blood Cells 4.58 10^6/uL (4.5-5.90); Red Cell Distribution Width 14.2 % (11.8-14.3); White Blood Cell 9.8 10^3/uL (4.4-10.8)
[2023-10-04 18:43] LABS: BUN/Creatinine Ratio 6.6 (10.0-20.0); Blood Urea Nitrogen < 5 mg/dL (9-23)
[2023-10-04 20:39] LABS: Urine Bacteria NONE SEEN /hpf (None Seen); Urine Blood Negative /uL (Negative); Urine Clarity Clear (Clear); Urine Color Colorless (Yellow); Urine Protein, UAD Negative (Negative); Urine Specific Gravity 1.001 (1.001-1.035); Urine Urobilinogen Normal (Negative); Urine WBC <1 /hpf (0 - 3)
[2023-10-04 20:45] LABS: Amphetamine Screen, Urine Neg (NEGATIVE); Barbiturate Scree,Urine Neg (NEGATIVE); Benzodiazephine Screen, Urine Neg (NEGATIVE); Cannabinoid Screen, Urine Neg (NEGATIVE); Cocaine Screen, Urine Neg (NEGATIVE); Opiate Scree,Urine Neg (NEGATIVE); Phencyclidine Screen, Urine Neg (NEGATIVE)
[2023-10-04] MEDS ORDERED: CEPH500C PO (21:12)
[2023-10-04] MEDS ORDERED: BACIOIN15 TOP (21:12)
[2023-10-04] MEDS ORDERED: IBUP-1455 PO (21:12)
[2023-10-04] MEDS ORDERED: ACET500T58 PO (21:12)
[2023-10-04] MEDS ORDERED: NEOMYCIN-BACITRACIN-POLYM UNITDOSE PKG TOP OINT TOP ONE (21:15)
[2023-10-04] MEDS ORDERED: CEPHALEXIN 250 MG CAP PO ONE (21:15)
== END 2023-10-04 23:49 | disposition home or self-care (01) ==
LOC: ER 15:58
DX: L03.116 Cellulitis of left lower limb (principal); L03.115 Cellulitis of right lower limb; F17.210 Nicotine dependence, cigarettes, uncomplicated; F15.10 Other stimulant abuse, uncomplicated; F10.10 Alcohol abuse, uncomplicated; Z59.00 Homelessness unspecified; Z88.6 Allergy status to analgesic agent; Z79.899 Other long term (current) drug therapy
CPT/HCPCS: 36415; 80053; 80307; 80320; 81001; 83605; 83690; 84484; 85025; 90471; 90715; 93005; 96372; 99284; J1885

== ENCOUNTER 2024-02-23 20:20 | Emergency (ER) | payer OTHER, MEDICAID ==
[~2024-02-23] VITALS: Ht 180.3 cm; Wt 75.2 kg
[~2024-02-23 20:20] MED LIST changes: +ACET500T58 PO; +BACIOIN15 TOP; +CEPH500C PO; +CLIN1CAP70 PO; -CLIN300C70 PO; +IBUP-1455 PO
[2024-02-23 21:58] VITALS: BP 117/71; PULSE 92; RESP 18; TEMP 97.5; O2SAT 96
[2024-02-23] MEDS: KETOROLAC TROMETH 60MG/2ML VIAL IM ONE (23:39)
[2024-02-23] MEDS ORDERED: CEPH500C PO (23:45)
[2024-02-24] MEDS ORDERED: ALBU108A5 IN (05:13)
== END 2024-02-23 23:31 | disposition left against medical advice (07) ==
LOC: ER 20:20
DX: L03.116 Cellulitis of left lower limb (principal); F17.210 Nicotine dependence, cigarettes, uncomplicated; F15.10 Other stimulant abuse, uncomplicated; G40.909 Epilepsy, unspecified, not intractable, without status epilepticus; Z88.1 Allergy status to other antibiotic agents; Z91.018 Allergy to other foods; Z79.899 Other long term (current) drug therapy; Z59.00 Homelessness unspecified

== ENCOUNTER 2024-02-24 04:08 | Emergency (ER) | payer OTHER, MEDICAID ==
[~2024-02-24] VITALS: Ht 193 cm; Wt 75.0 kg
[2024-02-24 04:15] VITALS: BP 120/74; TEMP 97.4
[2024-02-24] MEDS: IBUPROFEN 600 MG TAB PO ONE (04:58)
[2024-02-24] MEDS ORDERED: ALBU108A5 IN (05:13)
[2024-02-24] MEDS: HYDROcodone-ACET 5/325MG TAB PO ONE (05:27)
[2024-02-24 05:30] VITALS: PULSE 61; RESP 18; O2SAT 93
== END 2024-02-24 05:31 | disposition home or self-care (01) ==
LOC: ER 04:08
DX: L03.116 Cellulitis of left lower limb (principal); M77.8 Other enthesopathies, not elsewhere classified; F17.210 Nicotine dependence, cigarettes, uncomplicated; F15.10 Other stimulant abuse, uncomplicated; Z59.00 Homelessness unspecified; Z88.6 Allergy status to analgesic agent

== ENCOUNTER 2024-03-04 18:13 | Emergency (ER) | payer OTHER, MEDICAID ==
[~2024-03-04] VITALS: Ht 190.5 cm; Wt 76.5 kg
[~2024-03-04 18:13] MED LIST changes: +ALBU108A5 IN
[2024-03-04 19:41] LABS: Basophils # (auto) 0.1 10 ^3/uL (0-0.2); Basophils % (auto) 0.9 % (0.0-2.0); Eosinophils # (auto) 0.4 10 ^3/uL (0-0.8); Eosinophils % (auto) 4.1 % (0.0-7.0); Hematocrit 40.8 % (41.0-53.0); Hemoglobin 13.8 g/dL (13.5-17.5); Lymphocytes # (auto) 2.7 10 ^3/uL (0.4-5.4); Lymphocytes % (auto) 27.4 % (10.0-50.0); Mean Corpuscular Hemoglobin 32.3 pg (28.0-32.0); Mean Corpuscular Hgb Conc. 33.8 g/dL (32.0-36.0); Mean Corpuscular Volume 95.4 fL (80.0-100.0); Monocytes # (auto) 1.3 10 ^3/uL (0-1.3); Neutrophils # (auto) 5.5 10 ^3/uL (1.6-8.6); Neutrophils % (auto) 54.6 % (37.0-80.0); Nucleated Red Blood Cells % 0.1 %; Red Blood Cells 4.28 10^6/uL (4.5-5.90); Red Cell Distribution Width 12.4 % (11.8-14.3)
[2024-03-04 20:12] LABS: Alanine Aminotransferase 21 U/L (7-40); Albumin 4.2 g/dL (3.2-4.8); Alkaline Phosphatase 46 U/L (46-116); Anion Gap 8 (5-15); Aspartate Aminotransferase 12 U/L (13-40); BUN/Creatinine Ratio 13.8 (10.0-20.0); Bilirubin, Total 0.5 mg/dL (0.2-1.0); Blood Urea Nitrogen 11 mg/dL (9-23); Calcium 9.1 mg/dL (8.7-10.4); Carbon Dioxide 27 mmol/L (20-30); Chloride 104 mmol/L (98-107); Glucose 99 mg/dL (74-106); Lipase 42 U/L (12-53); Potassium 3.5 mmol/L (3.5-5.1); Sodium 139 mmol/L (136-145); Total Protein 6.6 g/dL (5.7-8.2)
[2024-03-04] MEDS: ONDANSETRON HCL 4 MG/2 ML VIAL IV ONE (20:30)
[2024-03-04 20:52] LABS: Urine Bacteria None Seen /hpf (None Seen)
[2024-03-04 20:58] LABS: Urine Blood Negative /uL (Negative); Urine Clarity Clear (Clear); Urine Color Light-Yellow (Yellow); Urine Protein, UAD Negative (Negative); Urine Urobilinogen Normal (Negative); Urine WBC 1 /hpf (0 - 3); Urine pH 5.5 (5.0-9.0)
[2024-03-04] MEDS ORDERED: ZOFR4T PO (21:20)
[2024-03-04] MEDS ORDERED: DICY10CA PO (21:20)
[2024-03-04] MEDS ORDERED: CEPH500C PO (21:20)
[2024-03-05] MEDS: SODIUM CHLORIDE 0.9% 1,000 ML IV ONE (00:58)
[2024-03-05] MEDS: cefTRIAXone 1GM/50ML D5W 100 ML IV ONE (00:58)
[2024-03-05] MEDS: cefTRIAXone 2GM/50ML D5W 50 ML IV ONE (00:58)
[2024-03-05 02:20] VITALS: BP 124/70; PULSE 64; RESP 18; TEMP 98.2; O2SAT 96
[2024-03-05] MEDS: MORPHINE SULFATE 4 MG/ML SYR/VIAL IV ONE (02:22)
== END 2024-03-05 02:20 | disposition home or self-care (01) ==
LOC: ER 18:13
DX: N30.90 Cystitis, unspecified without hematuria (principal); F17.210 Nicotine dependence, cigarettes, uncomplicated; F15.10 Other stimulant abuse, uncomplicated; I10 Essential (primary) hypertension; Z59.00 Homelessness unspecified; Z88.6 Allergy status to analgesic agent
CPT/HCPCS: 36415; 74176; 80053; 81001; 83690; 85025; 96365; 99285; J0696; J7030; J2405

== ENCOUNTER 2024-07-23 15:02 | Inpatient (IN) | payer OTHER, MEDICAID ==
[~2024-07-23] VITALS: Ht 190.5 cm; Wt 181.4 kg
[2024-07-23] MEDS: SODIUM CHLORIDE 0.9% 1,000 ML IV ONE ×2 (00:01→23:09)
[~2024-07-23 15:02] MED LIST changes: -ACET-929; -ACET500T58 PO; -AZITTAB11 PO; -BACIOIN15 TOP; -CEPH500C PO; -CLIN-203 PO; -CLIN1CAP70 PO; +GABA-1250 PO; -IBUP-1455 PO; -LEVO500T31 PO; -MECL25TA94 PO; +PANT40TA57 PO; -SULF-169; -[UNRECOGNIZED DRUG - OTHER] PO; -ibuprofen PO
[2024-07-23 16:08] LABS: Basophils # (auto) 0.1 10 ^3/uL (0-0.2); Basophils % (auto) 1.1 % (0.0-2.0); Eosinophils # (auto) 0.2 10 ^3/uL (0-0.8); Eosinophils % (auto) 2.3 % (0.0-7.0); Hematocrit 40.1 % (41.0-53.0); Lymphocytes % (auto) 23.9 % (10.0-50.0); Mean Corpuscular Hemoglobin 32.8 pg (28.0-32.0); Mean Corpuscular Hgb Conc. 34.9 g/dL (32.0-36.0); Mean Corpuscular Volume 94.1 fL (80.0-100.0); Monocytes # (auto) 1.1 10 ^3/uL (0-1.3); Neutrophils # (auto) 5.1 10 ^3/uL (1.6-8.6); Neutrophils % (auto) 59.7 % (37.0-80.0); Nucleated Red Blood Cells % 0.1 %; Platelet Count (auto) 285 10^3/uL (140-450); Red Blood Cells 4.26 10^6/uL (4.5-5.90); Red Cell Distribution Width 13.4 % (11.8-14.3); White Blood Cell 8.5 10^3/uL (4.4-10.8)
[2024-07-23 16:29] LABS: Alanine Aminotransferase 26 U/L (7-40); Albumin 4.8 g/dL (3.2-4.8); Alkaline Phosphatase 44 U/L (46-116); Anion Gap 7 (5-15); Aspartate Aminotransferase 15 U/L (13-40); BUN/Creatinine Ratio 9.2 (10.0-20.0); Blood Urea Nitrogen 9 mg/dL (9-23); Calcium 10.2 mg/dL (8.7-10.4); Carbon Dioxide 26 mmol/L (20-31); Chloride 106 mmol/L (98-107); Glucose 116 mg/dL (74-106); Magnesium 1.9 mg/dL (1.6-2.6); Potassium 3.7 mmol/L (3.5-5.1); Sodium 139 mmol/L (136-145)
[2024-07-23 16:30] LABS: Bilirubin, Total 0.3 mg/dL (0.2-1.0); Total Protein 7.2 g/dL (5.7-8.2)
[2024-07-23 19:21] LABS: Urine Bacteria None Seen /hpf (None Seen)
[2024-07-23 20:01] LABS: Urine Blood Negative /uL (Negative); Urine Clarity Clear (Clear); Urine Color Colorless (Yellow); Urine Protein, UAD Negative (Negative); Urine Specific Gravity 1.008 (1.001-1.035); Urine Urobilinogen Normal (Negative); Urine WBC <1 /hpf (0 - 3); Urine pH 5.5 (5.0-9.0)
[2024-07-23] MEDS ORDERED: ONDANSETRON HCL 4 MG/2 ML VIAL IV PRN (21:45)
[2024-07-23] MEDS ORDERED: hydrALAZINE HCL 20 MG/ML VL IV PRN (21:45)
[2024-07-23] MEDS ORDERED: ACETAMINOPHEN 325 MG TAB PO PRN (21:45)
[2024-07-23 22:23] LABS: Amphetamine Screen, Urine Neg (NEGATIVE); Barbiturate Scree,Urine Neg (NEGATIVE); Benzodiazephine Screen, Urine Neg (NEGATIVE); Cannabinoid Screen, Urine Neg (NEGATIVE); Cocaine Screen, Urine Neg (NEGATIVE); Opiate Scree,Urine Neg (NEGATIVE); Phencyclidine Screen, Urine Neg (NEGATIVE)
[2024-07-23 22:42] LABS: Blood Alcohol 3.6 mg/dL (<10); Magnesium 1.9 mg/dL (1.6-2.6)
[2024-07-23] MEDS: MECLIZINE HCL 25 MG TAB PO ONE (22:55)
[2024-07-23 23:14] VITALS: PULSE 80; RESP 16; O2SAT 97
[2024-07-24] VITALS: PULSE 80; RESP 16; O2SAT 97
[2024-07-24 04:00] VITALS: BP 114/70; PULSE 66; RESP 16; TEMP 97.6; O2SAT 97
[2024-07-24] MEDS ORDERED: FAMOTIDINE 20 MG TAB PO SCH (10:00)
[2024-07-24] MEDS ORDERED: ENOXAPARIN SOD 40 MG/0.4 ML SYRINGE SC SCH (10:00)
[2024-07-24] MEDS ORDERED: ALBUTEROL SULF HFA 90MCG INH 200DOSE IN PRN (11:45)
[2024-07-24] MEDS ORDERED: SODIUM CHLORIDE 0.9% 1,000 ML IV SCH (11:45)
[2024-07-24] MEDS ORDERED: CYCLOBENZAPRINE HCL 10 MG TAB PO PRN (11:45)
[2024-07-24] MEDS ORDERED: DICYCLOMINE HCL 10 MG CAP PO SCH (14:00)
[2024-07-25] MEDS ORDERED: PANTOPRAZOLE 40 MG TAB PO SCH (10:00)
== END 2024-07-24 07:22 | disposition left against medical advice (07) | DRG 149 ==
LOC: ER 15:02 → TELE 21:44
PROVIDERS: ADMIT Nurse Practitioner Family; ATTEND Nurse Practitioner Family
DX: R42 Dizziness and giddiness (principal); Z59.00 Homelessness unspecified; I10 Essential (primary) hypertension; Z53.29 Procedure and treatment not carried out because of patient's decision for other reasons; F17.210 Nicotine dependence, cigarettes, uncomplicated; Z82.49 Family history of ischemic heart disease and other diseases of the circulatory system; Z79.899 Other long term (current) drug therapy; Z87.11 Personal history of peptic ulcer disease; Z87.820 Personal history of traumatic brain injury; W18.39XA Other fall on same level, initial encounter; Y93.89 Activity, other specified; Y92.89 Other specified places as the place of occurrence of the external cause; Y99.8 Other external cause status; Z88.8 Allergy status to other drugs, medicaments and biological substances; Z91.018 Allergy to other foods
CPT/HCPCS: 36415; 70450; 80053; 80307; 80320; 81001; 82962; 83735; 83880; 84484; 85025; 93005; G0378

== ENCOUNTER 2024-07-31 10:36 | Emergency (ER) | payer OTHER, MEDICAID ==
[~2024-07-31] VITALS: Ht 190.5 cm; Wt 86.0 kg
[2024-07-31 10:43] VITALS: BP 127/88; PULSE 70; RESP 12; O2SAT 97
[2024-07-31] MEDS ORDERED: LORazepam 2MG/ML-1ML VIAL IM ONE (11:00)
[2024-07-31] MEDS ORDERED: MECLIZINE HCL 25 MG TAB PO ONE (11:00)
== END 2024-07-31 12:16 | disposition left against medical advice (07) ==
LOC: ER 10:36 → EDBD 10:36 → ER 12:16
DX: R42 Dizziness and giddiness (principal); I10 Essential (primary) hypertension; F17.210 Nicotine dependence, cigarettes, uncomplicated; Z59.00 Homelessness unspecified; Z87.11 Personal history of peptic ulcer disease; Z87.820 Personal history of traumatic brain injury
CPT/HCPCS: 93005

== ENCOUNTER 2024-08-22 14:42 | Emergency (ER) | payer OTHER, MEDICAID ==
[~2024-08-22] VITALS: Ht 190.5 cm; Wt 87.0 kg
[2024-08-22 15:26] VITALS: TEMP 98
[2024-08-22 16:25] VITALS: BP 133/86; PULSE 84; RESP 17; O2SAT 96
== END 2024-08-22 16:37 | disposition home or self-care (01) ==
LOC: ER 14:56
DX: K40.90 Unilateral inguinal hernia, without obstruction or gangrene, not specified as recurrent (principal); I10 Essential (primary) hypertension; Z98.890 Other specified postprocedural states; Z59.00 Homelessness unspecified; Z88.6 Allergy status to analgesic agent; Z88.8 Allergy status to other drugs, medicaments and biological substances; Z91.09 Other allergy status, other than to drugs and biological substances; Z79.899 Other long term (current) drug therapy

== ENCOUNTER 2024-08-29 13:00 | Emergency (ER) | payer OTHER, MEDICAID ==
[~2024-08-29] VITALS: Ht 185.4 cm; Wt 82.0 kg
--- NOTE | 2024-08-29 13:20 | ED.PDOC ---
GI ASSESSMENT HPI Comments 59 y.o male presents to the ED via EMS for a chief complaint of abdominal pain associated with nausea, vomiting and diarrhea that started today after drinking water. Patient describes a burning sensation diffused throughout his abdomen and states while using the restroom he noticed black loose stool. Patient denies any hematemesis, fever, chills, or urinary symptoms. EMS reports interacting with patient almost every other week, taking him to [facility] due to a hernia. EMS mentions patient has a history of ETOH abuse, usually [address] and is intoxicated. Patient is not homeless but is always found outside when picked up by EMS. Vital signs: BP: 150/100 HR: 80 Temp: 98.2F SPO2: 98% RA RR: 18 Patient reports allergies to Aspirin, Caffeine, and Phenacetin Past medical history: Hernia, seizures, HTN and PUD, alcohol abuse Past surgical history: Brain ( unspecified) REVIEW OF SYSTEMS: CONSTITUTIONAL: Denies acute: fever, diaphoresis, chills, generalized weakness. HEAD: Denies acute: headache, photophobia Eyes: Denies acute: Double vision, vision loss, eye pain, eye discharge. EARS: Denies acute: tinnitus, hearing loss, ear discharge, ear pain, THROAT: Denies acute: sore throat, swelling, difficulty swallowing , pain with swallowing, change in voice. NECK: Denies acute: neck pain, neck swelling, stiff neck. HEART: Denies acute : chest pain, palpitations, LUNGS: Denies acute: SOB, wheezing, cough, hemoptysis ABDOMEN: Denies acute: diarrhea, , hematemesis, hematochezia SKIN: Denies acute: rash, redness, lesions, itchiness. EXTREMITIES: Denies acute: calf pain, numbness, tingling, weakness, denies pain in extremity. Denies acute: Low back pain. Neuro: Denies acute: focal neurological deficit, motor or sensory focal neurological deficit, tremors, seizure like activity, confusion, dizziness, change in mental status, loss of bowel or bladder function, cauda equina like symptoms. : Denies acute: dysuria, hematuria, flank pain, increase in urinary frequency. PSYCH: Denies acute: hallucination, suicidal ideation, homicidal ideation. PHYSICAL EXAM: General: no acute distress, awake and alert. Head: normocephalic, atraumatic. Neck: supple, trachea is midline, no swelling. Throat: Normal phonation. Eyes:, no erythema, no purulent discharge, no proptosis, no icterus. Heart: regular rate, regular rhythm, no significant murmur appreciated. Lungs: no apparent respiratory distress, Able to speak in full sentences. No wheezing, no rhonchi, no crackles. No stridors Clear to auscultation bilaterally. Abdomen: Minimal nonspecific periumbilical tender to palpation, non distended, soft, no guarding, no rebound, + bowel sounds. Digital rectal exam was performed for the sole purpose of obtaining stool. The rectal vault was essentially empty. No apparent melena or bleeding. Normal sphincter tone. Patient was unable to provide us with a stool sample on his own. While patient was waiting in the lobby he went to the cafeteria to eat. Neuro: Awake, Alert, oriented to name, self, situation, follows commands GCS=15. Speech is normal. Skin: no petechia, no purpura, no cyanosis, non-pale, not jaundice. Lower extremities: --no - Pitting edema no deformity, no focal swelling, no calf TTP. Makes eye contact. moves all four extremities. Face: no apparent facial droop. Ambulating in the ED independently. Chief Complaint: Abdominal Pain Time Seen by MD: 13:08 Primary Care Provider: JANETH Ragland Notes: Allergies Allergies: Coded Allergies: Caffeine (Verified Allergy, Severe, 09/13/11) Phenacetin (Verified Allergy, Severe, 09/13/11) Aspirin (Unverified Allergy, Unknown, 04/30/14) Home Meds Active Scripts Gabapentin (Gabapentin) 300 Mg Cap, 1 CAP PO TID, #30 CAP Prov:CRISTIAN KAUR MD 07/13/24 Dicyclomine Hcl (BENTYL CAPSULE) 10 Mg Cp, 2 CAP PO TID, #30 CAP abdominal cramping Prov:CRISTIAN KAUR MD 07/13/24 Pantoprazole Sodium Sesquihydr (Pantoprazole Sodium Dr) 40 Mg Tab, 40 MG PO DAILY, #60 TAB Prov:CRISTIAN KAUR MD 07/13/24 Albuterol Sulfate (Albuterol Sulfate Hfa) 108 Mcg/Act Aer, 108 MCG IN Q4HPRN PRN, #1 AER Prov:RUSTY PADILLA PAC 02/24/24 Ondansetron Odt 4MG Tab (ZOFRAN PO) 4 Mg Tb, 4 MG PO Q6HP PRN, #20 TAB ODT TAB-DISSOLVE IN MOUTH, THEN SWALLOW Prov:MELINA DEWEY PAC 07/14/23 Celecoxib (Celebrex) 100 Mg Cap, 100 MG PO DAILY PRN, #14 MG Prov:CESAR SUMMERS N.P. 11/18/13 Cyclobenzaprine Hcl (FLEXERIL) 10 Mg Tab, 10 MG PO TID PRN, #20 TAB Prov:CESAR SUMMERS N.P. 11/18/13 Reported Medications Hydrocodone-Acetaminophen (Hydrocodone/Acetaminophen) 1 Tab Tab, #30 08/26/13 Divalproex Sodium (Depakote Er) 500 Mg Tab 02/23/10 Information Source: Patient, Emergency Med Personnel Mode of Arrival: EMS Timing: Hours Past Medical History PAST MEDICAL HISTORY: HTN, PUD, Seizures Surgical History (Other): brain Family History Family History: Reviewed,noncontributory to illness, Family hx of heart harshad Social History Smoker: Non-Smoker Alcohol: Denies ETOH Use Drugs: Denies Drug Use Lives In: Home Was a procedure done? Was a procedure done?: No GI differential Dx Differential Diagnosis: Gastritis/PUD, Gastroenteritis, Hernia, Anemia, Esophageal Varicies, Other (DDX include but not limited to diverticulitis, colitis, gastroenteritis, acute abdomen, SBO, enteritis, constipation, volvulus, appendicitis, Gallbladder disease, choledocolithiasis, ascending cholangitis, pancreatitis, intraAbdominal mass/neoplasm, hepatitis, UTI, pylonephritis, kidney stone, aneurysm, dissection, Inflammatory bowel disease, gastroparesis, ischemic bowel.) X-Ray, Labs, Meds, VS Vital Signs Date Time Temp Pulse Resp B/P (MAP) Pulse Ox O2 Delivery O2 Flow Rate FiO2 08/29/24 14:35 98.2 80 20 150/100 (117) 98 98.2 08/29/24 13:08 98.2 80 18 150/100 (117) 98 08/29/24 13:04 92 Lab Test 08/29/24 21:09 08/29/24 15:39 11/7/24 13:41 Range/Units Stool Occult Blood Sample #3 Pending Urine Color Light-yellow Yellow Urine Clarity Clear Clear Urine pH 5.5 5.0-9.0 Urine Specific [place] 1.006 1.001-1.035 Urine Protein Negative Negative Urine Ketones Negative Negative Urine Blood Negative Negative /uL Urine Nitrite Negative Negative Urine Bilirubin Negative Negative Urine Urobilinogen Normal Negative mg/dL Urine Leukocyte Esterase Negative Negative /uL Urine RBC <1 0 - 3 /hpf Urine WBC <1 0 - 3 /hpf Urine Squamous Epithelial Cells Few <5 /hpf Urine Bacteria None seen None Seen /hpf Urine Glucose Normal Normal mg/dL Urine Opiates Screen Neg NEGATIVE Urine Fentanyl Screen Neg NEGATIVE Urine Barbiturates Screen Neg NEGATIVE Urine Phencyclidine Screen Neg NEGATIVE Urine Amphetamines Screen Neg NEGATIVE Urine Benzodiazepines Screen Neg NEGATIVE Urine Cocaine Screen Neg NEGATIVE Urine Cannabinoids Screen Neg NEGATIVE White Blood Count 10.0 4.4-10.8 10^3/uL Red Blood Count 4.69 4.5-5.90 10^6/uL Hemoglobin 15.2 13.5-17.5 g/dL Hematocrit 43.0 41.0-53.0 % Mean Corpuscular Volume 91.7 80.0-100.0 fL Mean Corpuscular Hemoglobin 32.4 H 28.0-32.0 pg Mean Corpuscular Hemoglobin Concent 35.3 32.0-36.0 g/dL Red Cell Distribution Width 13.3 11.8-14.3 % Platelet Count 330 140-450 10^3/uL Mean Platelet Volume 7.7 6.9-10.8 fL Neutrophils (%) (Auto) 66.1 37.0-80.0 % Lymphocytes (%) (Auto) 20.2 10.0-50.0 % Monocytes (%) (Auto) 11.5 0.0-12.0 % Eosinophils (%) (Auto) 1.2 0.0-7.0 % Basophils (%) (Auto) 1.0 0.0-2.0 % Neutrophils # (Auto) 6.6 1.6-8.6 10 ^3/uL Lymphocytes # (Auto) 2.0 0.4-5.4 10 ^3/uL Monocytes # (Auto) 1.1 0-1.3 10 ^3/uL Eosinophils # (Auto) 0.1 0-0.8 10 ^3/uL Basophils # (Auto) 0.1 0-0.2 10 ^3/uL Nucleated Red Blood Cells 0.1 % Sodium Level 136 136-145 mmol/L Potassium Level 4.1 3.5-5.1 mmol/L Chloride Level 105 98-107 mmol/L Carbon Dioxide Level 23 20-31 mmol/L Anion Gap 8 5-15 Blood Urea Nitrogen 11 9-23 mg/dL Creatinine 0.92 0.700-1.30 mg/dL Glomerular Filtration Rate Calc 97 >90 mL/min BUN/Creatinine Ratio 12.0 10.0-20.0 Serum Glucose 97 74-106 mg/dL Lactic Acid Level 1.2 0.4-2.0 mmol/L Calcium Level 9.8 8.7-10.4 mg/dL Magnesium Level 1.9 1.6-2.6 mg/dL Total Bilirubin 0.9 0.2-1.0 mg/dL Aspartate Amino Transferase (AST) 24 13-40 U/L Alanine Aminotransferase (ALT) 31 7-40 U/L Alkaline Phosphatase 48 46-116 U/L Troponin I High Sensitivity < 3 L </=54 ng/L Total Protein 7.5 5.7-8.2 g/dL Albumin 5.2 H 3.2-4.8 g/dL Lipase 33 12-53 U/L Current Medications Medications (Trade) Dose Ordered Sig/Yareli Route Start Time Stop Time Status Last Admin Pantoprazole Sodium (Protonix) 40 mg ONCE ONCE IV 08/29/24 21:30 08/29/24 22:17 DC 08/29/24 22:39 [place] [address] Ph: [phone] DIAGNOSTIC IMAGING Diagnostic Imaging Report : [id number] Signed PATIENT: ZANDER NAVAS ACCT: [id number] UNIT: [id number] : 1965 LOC: ER ROOM / BED: / AGE / SEX: 59 / M ADM STATUS: REG ER SERVICE [id number] ORDERING PHYSICIAN: CARLINE STEVE DO PROCEDURE(s): ABPLIV - CT AB PEL WITH IV CON ONLY REASON: abd pain/n/v/ melena ORDER NUMBER(s): [id number], ACCESSION NUMBER(s): [id number] Exam: CT CT AB PEL WITH IV CON ONLY History: abd pain/n/v/ melena COMPARISON: CT CT AB PEL WO CON-NO ORAL OR IV on DOS: 07/10/24, CT CT AB PEL WO CON-NO ORAL OR IV on DOS: 03/04/24, CT CT AB PEL WO CON-NO ORAL OR IV on DOS: 07/14/23 Technique: Multidetector spiral CT of the abdomen and pelvis was performed from lung bases to pubic symphysis. Intravenous contrast was administered during this examination. Portal venous imaging was obtained. Axial, coronal and sagittal multiplanar reformats were performed by the technologist on a separate workstation. Radiation Dose : Abdomen/Pelvis: CTDIvol 9 mGy, DLP 483 mGy*cm. CONTRAST: Type of contrast: Omni 300 Contrast injected: 100 mL Findings: Lung Bases: No acute or significant lung base finding. Normal heart size. No pleural or pericardial effusion. Liver: The liver is normal in size. No focal lesions. Normal hepatic vascular enhancement. Gallbladder and biliary Tree: Unremarkable Spleen: Unremarkable Pancreas: The pancreas is normal in appearance without focal lesions or abnormal enhancement. Adrenal Glands: Unremarkable Kidneys: No hydronephrosis. Bladder: Unremarkable Bowel: The stomach is grossly normal in appearance. Small bowel and colon are normal in caliber and distribution. The appendix is not visualized; however, no secondary findings of acute appendicitis identified. Ascites: Absent Lymphadenopathy: No mesenteric, retroperitoneal or periportal lymphadenopathy. Abdominal wall and Mesentery: Unremarkable. Vasculature: The visualized abdominal aorta is normal in size and caliber. Abdominal and pelvic vessels demonstrate normal enhancement. Pelvic Organs: Unremarkable Musculoskeletal: No aggressive focal bony lesions, acute fractures or dislocation. IMPRESSION: 1. No acute abdominal or pelvic finding. Radiation optimization: All CT scans at this facility use at least one of these dose optimization techniques: Automated exposure control mA and/or kV adjustment per patient size (includes targeted exams where dose is matched to clinical indication) or iterative reconstruction. HS:Y ATED BY: HALEY DUNCAN MD DICTATED DATE/TIME: 08/29/241735 SIGNED BY: HALEY DUNCAN MD SIGNED DATE/TIME: 08/29/241735 CC: Time of 1ST Reevaluation: 13:21 Reevaluation 1ST: Unchanged Time of 2ND Reevaluation: 21:46 (The case was discussed with the admitting team (HPI, physical exam, labs and diagnostic tests that were available at the time of disposition, ED course, treatment plan) on the phone. They stated that they are very familiar with this patient. They said they will come and evaluate the patient and make appropriate disposition. They said they will most likely discharge the patient home. COLTON Rodriguez. ) Reevaluation 2ND: Unchanged Patient Education/Counseling: Diagnosis, Treatment Family Education/Counseling: No Family Present Comments Patient presented with the above HPI.---abdominal pain/nausea vomiting melena--- workup was initiated. patient was found with the above mentioned diagnosis. Patient was given: Fluids Patient ED course and VS have been stabilized. Patient has been reassessed in the ED and remained in a stable condition. Pertinent incidental findings were discussed with the patient and/or family. Patient/family voices understanding and is agreeable with plan. Patient has been observed in the ED adequate length of time to insure improvement/stability. patient was admitted to the medicine team for further evaluation and treatment of their presentation. All the reports of any imaging studies that were ordered by myself were reviewed by myself. Departure 1 Departure Time of Disposition: 21:16 Impression: Primary Impression: Abdominal pain Additional Impression: Melena Disposition: ADMITTED INPATIENT Admit to: Tele Condition: Guarded Additional Instructions: Discharge instructions per the medicine team. Please see their consultation notes and instructions. Discharged With: Self Critical Care Note Critical Care Time?: No I personally scribed for CARLINE STEVE DO ([email or web address]) on 08/29/24 at 13:20. Electronically submitted by Arin Garcia ([facility] I personally scribed for CARLINE STEVE DO ([email or web address]) on 08/29/24 at 13:28. Electronically submitted by Arin Garcia ([employer]). I personally scribed for CARLINE STEVE DO ([email or web address]) on 08/29/24 at 18:09. Electronically submitted by Arin Garcia ([employer]). CARLINE STEVE DO Aug 29, 2024 13:20
[2024-08-29 14:27] LABS: Basophils # (auto) 0.1 10 ^3/uL (0-0.2); Eosinophils # (auto) 0.1 10 ^3/uL (0-0.8); Eosinophils % (auto) 1.2 % (0.0-7.0); Hemoglobin 15.2 g/dL (13.5-17.5); Lymphocytes % (auto) 20.2 % (10.0-50.0); Mean Corpuscular Hemoglobin 32.4 pg (28.0-32.0); Mean Corpuscular Hgb Conc. 35.3 g/dL (32.0-36.0); Mean Corpuscular Volume 91.7 fL (80.0-100.0); Monocytes # (auto) 1.1 10 ^3/uL (0-1.3); Monocytes % (auto) 11.5 % (0.0-12.0); Neutrophils # (auto) 6.6 10 ^3/uL (1.6-8.6); Neutrophils % (auto) 66.1 % (37.0-80.0); Nucleated Red Blood Cells % 0.1 %; Platelet Count (auto) 330 10^3/uL (140-450); Red Blood Cells 4.69 10^6/uL (4.5-5.90); Red Cell Distribution Width 13.3 % (11.8-14.3)
[2024-08-29 15:07] LABS: Alanine Aminotransferase 31 U/L (7-40); Albumin 5.2 g/dL (3.2-4.8); Alkaline Phosphatase 48 U/L (46-116); Anion Gap 8 (5-15); Aspartate Aminotransferase 24 U/L (13-40); Bilirubin, Total 0.9 mg/dL (0.2-1.0); Blood Urea Nitrogen 11 mg/dL (9-23); Calcium 9.8 mg/dL (8.7-10.4); Carbon Dioxide 23 mmol/L (20-31); Chloride 105 mmol/L (98-107); Glucose 97 mg/dL (74-106); Lipase 33 U/L (12-53); Magnesium 1.9 mg/dL (1.6-2.6); Potassium 4.1 mmol/L (3.5-5.1); Sodium 136 mmol/L (136-145); Total Protein 7.5 g/dL (5.7-8.2)
[2024-08-29 15:41] LABS: Urine Bacteria None Seen /hpf (None Seen)
[2024-08-29 16:00] LABS: Urine Blood Negative /uL (Negative); Urine Clarity Clear (Clear); Urine Color Light-Yellow (Yellow); Urine Protein, UAD Negative (Negative); Urine Specific Gravity 1.006 (1.001-1.035); Urine Urobilinogen Normal (Negative); Urine WBC <1 /hpf (0 - 3); Urine pH 5.5 (5.0-9.0)
[2024-08-29 16:14] LABS: Amphetamine Screen, Urine Neg (NEGATIVE)
[2024-08-29 16:15] LABS: Barbiturate Scree,Urine Neg (NEGATIVE); Benzodiazephine Screen, Urine Neg (NEGATIVE); Cannabinoid Screen, Urine Neg (NEGATIVE); Cocaine Screen, Urine Neg (NEGATIVE); Opiate Scree,Urine Neg (NEGATIVE); Phencyclidine Screen, Urine Neg (NEGATIVE)
[2024-08-29] MEDS: IOHEXOL 300 MG/ML 100ML BOTTLE IJ ONE (16:57)
--- NOTE | 2024-08-29 17:39 | DVH ---
Exam: CT CT AB PEL WITH IV CON ONLY History: abd pain/n/v/ melena COMPARISON: CT CT AB PEL WO CON-NO ORAL OR IV on DOS: 07/10/24, CT CT AB PEL WO CON-NO ORAL OR IV on D OS: 03/04/24, CT CT AB PEL WO CON-NO ORAL OR IV on DOS: 07/14/23 Technique: Multidetector spiral CT of the abdomen and pelvis was performed from lung bases to pubic symphysis. Intravenous contrast was administered during this examination. Portal venous imaging was obtained. Axial, coronal and sagittal multiplanar reformats were performed by the technologist on a separate workstation. Radiation Dose : Abdomen/Pelvis: CTDIvol 9 mGy, DLP 483 mGy*cm. CONTRAST: Type of contrast: Omni 300 Contrast injected: 100 mL Findings: Lung Bases: No acute or significant lung base finding. Normal heart size. No pleural or pericardial effusion. Liver: The liver is normal in size. No focal lesions. Normal hepatic vascular enhancement. Gallbladder and biliary Tree: Unremarkable Spleen: Unremarkable Pancreas: The pancreas is normal in appearance without focal lesions or abnormal enhancement. Adrenal Glands: Unremarkable Kidneys: No hydronephrosis. Bladder: Unremarkable Bowel: The stomach is grossly normal in appearance. Small bowel and colon are normal in caliber and d istribution. The appendix is not visualized; however, no secondary findings of acute appendicitis id entified. Ascites: Absent Lymphadenopathy: No mesenteric, retroperitoneal or periportal lymphadenopathy. Abdominal wall and Mesentery: Unremarkable. Vasculature: The visualized abdominal aorta is normal in size and caliber. Abdominal and pelvic vess els demonstrate normal enhancement. Pelvic Organs: Unremarkable Musculoskeletal: No aggressive focal bony lesions, acute fractures or dislocation. IMPRESSION: 1. No acute abdominal or pelvic finding. Radiation optimization: All CT scans at this facility use at least one of these dose optimization maggie hniques: Automated exposure control mA and/or kV adjustment per patient size (includes targeted exams where dose is matched to clinical indication) or iterative reconstruction. HS:Y
--- NOTE | 2024-08-29 19:21 | ECG ---
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
[2024-08-29] MEDS: SODIUM CHLORIDE 0.9% 1,000 ML IV ONE (21:30)
--- NOTE | 2024-08-29 22:35 | DVHINCON2 ---
BINA PRESLEY INFORMATICA ARCHITECT 08/29/24 2235: Date of service: Aug 29, [address] aRmos History of Present Illness 52 Cent male with past medical history of alcohol abuse, TBI, Seizures, Hypertension, hernias Presents with complaints of abdominal pain with dark tarry stools. Patient was seen and evaluated In the emergency department treatment chairs. At this time CBC is unremarkable: 10, H&H 15.2/43.0, PLT 330. BMP Is unremarkable: Na 136, K4.1, B1 11, creatinine 0.[address] Of the abdomen and pelvis has no acute findings. My evaluation The Patient states he is having hip pain from waiting in the emergency department For long period of time. There are No complaints of Dizziness, syncope, chest pain, palpitations, shortness of breath. Past Medical History TBI, alcohol abuse, seizures, hypertension, hernia, medical noncompliance Family History: FH: myocardial infarction G8 FATHER Family history: Cardiovascular disease G8 FATHER Allergies: Coded Allergies: Caffeine (Verified Allergy, Severe, 09/13/11) Phenacetin (Verified Allergy, Severe, 09/13/11) Aspirin (Unverified Allergy, Unknown, 04/30/14) Home Meds Active Scripts Ibuprofen (Ibuprofen) 800 Mg Tab, 1 TAB PO TID PRN for 5 Days, #15 TAB 1 Refill Prov:ELIZA ARREOLA 08/30/24 Gabapentin (Gabapentin) 300 Mg Cap, 1 CAP PO TID, #30 CAP Prov:CRISTIAN KAUR MD 07/13/24 Dicyclomine Hcl (BENTYL CAPSULE) 10 Mg Cp, 2 CAP PO TID, #30 CAP abdominal cramping Prov:CRISTIAN KAUR MD 07/13/24 Pantoprazole Sodium Sesquihydr (Pantoprazole Sodium Dr) 40 Mg Tab, 40 MG PO DAILY, #60 TAB Prov:CRISTIAN KAUR MD 07/13/24 Albuterol Sulfate (Albuterol Sulfate Hfa) 108 Mcg/Act Aer, 108 MCG IN Q4HPRN PRN, #1 AER Prov:RUSTY PADILLA PAC 02/24/24 Ondansetron Odt 4MG Tab (ZOFRAN PO) 4 Mg Tb, 4 MG PO Q6HP PRN, #20 TAB ODT TAB-DISSOLVE IN MOUTH, THEN SWALLOW Prov:MELINA DEWEY PAC 07/14/23 Celecoxib (Celebrex) 100 Mg Cap, 100 MG PO DAILY PRN, #14 MG Prov:CESAR SUMMERS N.P. 11/18/13 Cyclobenzaprine Hcl (FLEXERIL) 10 Mg Tab, 10 MG PO TID PRN, #20 TAB Prov:CESAR SUMMERS N.P. 11/18/13 Reported Medications Hydrocodone-Acetaminophen (Hydrocodone/Acetaminophen) 1 Tab Tab, #30 08/26/13 Divalproex Sodium (Depakote Er) 500 Mg Tab 02/23/10 Review of Systems 10 systems reviewed and negative except per HPI Vital Signs Vital Signs Date Time Temp Pulse Resp B/P (MAP) Pulse Ox O2 Delivery O2 Flow Rate FiO2 08/29/24 14:35 98.2 80 20 150/100 (117) 98 98.2 Physical Exam GENERAL: Patient appearing stated age, in no acute distress. unkept HEENT: Pupils equal and reactive to light and accommodation. Extraocular muscles intact. Mucous membranes moist. Conjunctivae pink. Anicteric sclerae. LUNGS: Bilateral air entry. No wheezes, rhonchi or rales. HEART: Regular rate and rhythm. Normal S1 and S2. ABDOMEN: BS normoactive, soft, nontender, and nondistended. No CVA tenderness. EXTREMITIES: No clubbing, cyanosis, edema. No calf tenderness. Pedal pulses 2+. NEUROLOGICAL: The patient is alert and oriented times 3. CN II-XII intact. No focal deficits on gross sensory or motor examination. Labs/Diagnostic Data Labs Test 08/29/24 21:09 08/29/24 15:39 08/29/24 13:41 Range/Units Urine Color Light-yellow Yellow Urine Clarity Clear Clear Urine pH 5.5 5.0-9.0 Urine Specific [place] 1.006 1.001-1.035 Urine Protein Negative Negative Urine Ketones Negative Negative Urine Blood Negative Negative /uL Urine Nitrite Negative Negative Urine Bilirubin Negative Negative Urine Urobilinogen Normal Negative mg/dL Urine Leukocyte Esterase Negative Negative /uL Urine RBC <1 0 - 3 /hpf Urine WBC <1 0 - 3 /hpf Urine Squamous Epithelial Cells Few <5 /hpf Urine Bacteria None seen None Seen /hpf Urine Glucose Normal Normal mg/dL Urine Opiates Screen Neg NEGATIVE Urine Fentanyl Screen Neg NEGATIVE Urine Barbiturates Screen Neg NEGATIVE Urine Phencyclidine Screen Neg NEGATIVE Urine Amphetamines Screen Neg NEGATIVE Urine Benzodiazepines Screen Neg NEGATIVE Urine Cocaine Screen Neg NEGATIVE Urine Cannabinoids Screen Neg NEGATIVE White Blood Count 10.0 4.4-10.8 10^3/uL Red Blood Count 4.69 4.5-5.90 10^6/uL Hemoglobin 15.2 13.5-17.5 g/dL Hematocrit 43.0 41.0-53.0 % Mean Corpuscular Volume 91.7 80.0-100.0 fL Mean Corpuscular Hemoglobin 32.4 H 28.0-32.0 pg Mean Corpuscular Hemoglobin Concent 35.3 32.0-36.0 g/dL Red Cell Distribution Width 13.3 11.8-14.3 % Platelet Count 330 140-450 10^3/uL Mean Platelet Volume 7.7 6.9-10.8 fL Neutrophils (%) (Auto) 66.1 37.0-80.0 % Lymphocytes (%) (Auto) 20.2 10.0-50.0 % Monocytes (%) (Auto) 11.5 0.0-12.0 % Eosinophils (%) (Auto) 1.2 0.0-7.0 % Basophils (%) (Auto) 1.0 0.0-2.0 % Neutrophils # (Auto) 6.6 1.6-8.6 10 ^3/uL Lymphocytes # (Auto) 2.0 0.4-5.4 10 ^3/uL Monocytes # (Auto) 1.1 0-1.3 10 ^3/uL Eosinophils # (Auto) 0.1 0-0.8 10 ^3/uL Basophils # (Auto) 0.1 0-0.2 10 ^3/uL Nucleated Red Blood Cells 0.1 % Sodium Level 136 136-145 mmol/L Potassium Level 4.1 3.5-5.1 mmol/L Chloride Level 105 98-107 mmol/L Carbon Dioxide Level 23 20-31 mmol/L Anion Gap 8 5-15 Blood Urea Nitrogen 11 9-23 mg/dL Creatinine 0.92 0.700-1.30 mg/dL Glomerular Filtration Rate Calc 97 >90 mL/min BUN/Creatinine Ratio 12.0 10.0-20.0 Serum Glucose 97 74-106 mg/dL Lactic Acid Level 1.2 0.4-2.0 mmol/L Calcium Level 9.8 8.7-10.4 mg/dL Magnesium Level 1.9 1.6-2.6 mg/dL Total Bilirubin 0.9 0.2-1.0 mg/dL Aspartate Amino Transferase (AST) 24 13-40 U/L Alanine Aminotransferase (ALT) 31 7-40 U/L Alkaline Phosphatase 48 46-116 U/L Troponin I High Sensitivity < 3 L </=54 ng/L Total Protein 7.5 5.7-8.2 g/dL Albumin 5.2 H 3.2-4.8 g/dL Lipase 33 12-53 U/L Assessment Abdominal pain Patient seen and evaluated ER treatment chairs. At this time H&H is stable 15.2/43.0, BUN 11, creating 0.92. CT of the abdomen pelvis has no acute abdominal or pelvic findings.Patient has remained hemodynamically stable Throughout visit. Plan/Recommendation Patient will be discharged home. Case management has been consulted to establish outpatient follow up with PCP and Gastro group. Well attempt home health follow up, however patient is known to live in [facility]. Patient provided with strict ER precautions. Including but not limited to dizziness, headaches, syncope, shortness of breath, chest pain, nausea, vomiting, episodes of hematemesis, hematochezia, melena. Plan discussed with: Patient YOHANNES SALDANA MD 08/30/24 1656: Family History: FH: myocardial infarction G8 FATHER Family history: Cardiovascular disease G8 FATHER Allergies: Coded Allergies: Caffeine (Verified Allergy, Severe, 09/13/11) Phenacetin (Verified Allergy, Severe, 09/13/11) Aspirin (Unverified Allergy, Unknown, 04/30/14) Home Meds Active Scripts Ibuprofen (Ibuprofen) 800 Mg Tab, 1 TAB PO TID PRN for 5 Days, #15 TAB 1 Refill Prov:ELIZA ARREOLA 08/30/24 Gabapentin (Gabapentin) 300 Mg Cap, 1 CAP PO TID, #30 CAP Prov:CRISTIAN KAUR MD 07/13/24 Dicyclomine Hcl (BENTYL CAPSULE) 10 Mg Cp, 2 CAP PO TID, #30 CAP abdominal cramping Prov:CRISTIAN KAUR MD 07/13/24 Pantoprazole Sodium Sesquihydr (Pantoprazole Sodium Dr) 40 Mg Tab, 40 MG PO DAILY, #60 TAB Prov:CRISTIAN KAUR MD 07/13/24 Albuterol Sulfate (Albuterol Sulfate Hfa) 108 Mcg/Act Aer, 108 MCG IN Q4HPRN PRN, #1 AER Prov:RUSTY PADILLA PAC 02/24/24 Ondansetron Odt 4MG Tab (ZOFRAN PO) 4 Mg Tb, 4 MG PO Q6HP PRN, #20 TAB ODT TAB-DISSOLVE IN MOUTH, THEN SWALLOW Prov:MELINA DEWEY PAC 07/14/23 Celecoxib (Celebrex) 100 Mg Cap, 100 MG PO DAILY PRN, #14 MG Prov:CESAR SUMMERS N.P. 11/18/13 Cyclobenzaprine Hcl (FLEXERIL) 10 Mg Tab, 10 MG PO TID PRN, #20 TAB Prov:CESAR SUMMERS N.P. 11/18/13 Reported Medications Hydrocodone-Acetaminophen (Hydrocodone/Acetaminophen) 1 Tab Tab, #30 08/26/13 Divalproex Sodium (Depakote Er) 500 Mg Tab 02/23/10 Additional Comments Additional Comments Additional Comments 59-year-old male with a known history of hypertension, seizure disorder, history of traumatic brain injury initiation of the hospital with abdominal pain and some dark stools patient hemoglobin found to be stable. Patient was running pain resolved patient was will be discharged home with close follow up as an outpatient with PCP and gastro group if there is any GI intervention needed. Patient was being discharged under stable condition. Choice bottle caser has been notified regarding plan of care. BINA PRESLEY NP Aug 29, 2024 22:35 YOHANNES SALDANA MD Aug 30, 2024 16:56
[2024-08-29] MEDS: PANTOPRAZOLE 40 MG/10 ML VIAL INJ IV ONE (22:39)
[2024-08-29 22:44] VITALS: BP 139/83; PULSE 95; RESP 17; TEMP 98.5; O2SAT 94
[2024-08-29] MEDS: HYDROcodone-ACET 5/325MG TAB PO ONE (22:47)
[2024-08-30] MEDS ORDERED: IBUP-1456 PO (04:47)
== END 2024-08-29 22:47 | disposition home or self-care (01) ==
LOC: ER 13:00 → EDBD 13:00 → EDUNIT# 13:00 → ER 22:47
DX: K92.1 Melena (principal); I10 Essential (primary) hypertension; Z79.899 Other long term (current) drug therapy; Z87.11 Personal history of peptic ulcer disease; Z88.6 Allergy status to analgesic agent
CPT/HCPCS: 36415; 74177; 80053; 80307; 81001; 83605; 83690; 83735; 84484; 85025; 93005; 96374; 99285; J2470; Q9967; 82270

== ENCOUNTER 2024-08-30 03:54 | Emergency (ER) | payer OTHER, MEDICAID ==
[~2024-08-30] VITALS: Ht 190.5 cm; Wt 90.0 kg
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
[2024-08-30] MEDS: IBUPROFEN 800 MG TAB PO ONE (04:32)
--- NOTE | 2024-08-30 04:44 | DVH ---
CLINICAL INDICATION: pain TECHNIQUE: 3 radiographic views of the right shoulder were obtained. Comparison: None FINDINGS/IMPRESSION: There is no evidence of acute fracture or dislocation. The visualized joint space is well maintained. The alignment is anatomical. There is no radiopaque foreign body.
[2024-08-30] MEDS ORDERED: IBUP-1456 PO (04:47)
[2024-08-30 05:11] VITALS: BP 137/101; PULSE 78; RESP 18; TEMP 98.1; O2SAT 95
== END 2024-08-30 05:09 | disposition home or self-care (01) ==
LOC: ER 03:54
DX: S46.911A Strain of unspecified muscle, fascia and tendon at shoulder and upper arm level, right arm, initial encounter (principal); I10 Essential (primary) hypertension; Z79.899 Other long term (current) drug therapy; Z87.11 Personal history of peptic ulcer disease; Z88.6 Allergy status to analgesic agent; V43.52XA Car driver injured in collision with other type car in traffic accident, initial encounter; Y93.89 Activity, other specified; Y92.488 Other paved roadways as the place of occurrence of the external cause; Y99.8 Other external cause status
CPT/HCPCS: 73030

== ENCOUNTER 2024-09-23 15:29 | Emergency (ER) | payer OTHER, MEDICAID ==
[~2024-09-23] VITALS: Ht 190.5 cm; Wt 83.8 kg
[~2024-09-23 15:29] MED LIST changes: +IBUP-1456 PO
--- NOTE | 2024-09-23 16:16 | ED.PDOC ---
History of Present Illness HPI Comments 59 y/o M, with a Hx of CVA, HLD, HTN, PUD, seizures, and tobacco and EtOH use, presents with c/o non-radiating, lower abdominal pain, nausea, vomiting, and diarrhea, today. Patient endorses on sudden and unprovoked onset of symptoms at 0800, this morning. He describes pain being equivalent to "battery acid" burning sensation in addition to his diarrhea being clear and "watery" in appearance. Patient informs on being medically cleared of most recent colonoscopy, with next upcoming appointment in November 2024. Patient denies having any hematemesis, blood-streaked stools, rectal bleeding, weakness, fever, chills, urinary symptoms or modifiers at this time. Chief Complaint: Nausea/Vomiting Time Seen by MD: 15:45 Primary Care Provider: SOHEILA Reviewed Notes: Nurses Notes, Medications, Allergies Allergies: Coded Allergies: Caffeine (Verified Allergy, Severe, 09/13/11) Phenacetin (Verified Allergy, Severe, 09/13/11) Aspirin (Unverified Allergy, Unknown, 04/30/14) Home Meds Active Scripts Ibuprofen (Ibuprofen) 800 Mg Tab, 1 TAB PO TID PRN for 5 Days, #15 TAB 1 Refill Prov:ELIZA ARREOLA 08/30/24 Gabapentin (Gabapentin) 300 Mg Cap, 1 CAP PO TID, #30 CAP Prov:CRISTIAN KAUR MD 07/13/24 Dicyclomine Hcl (BENTYL CAPSULE) 10 Mg Cp, 2 CAP PO TID, #30 CAP abdominal cramping Prov:CRISTIAN KAUR MD 07/13/24 Pantoprazole Sodium Sesquihydr (Pantoprazole Sodium Dr) 40 Mg Tab, 40 MG PO DAILY, #60 TAB Prov:CRISTIAN KAUR MD 07/13/24 Albuterol Sulfate (Albuterol Sulfate Hfa) 108 Mcg/Act Aer, 108 MCG IN Q4HPRN PRN, #1 AER Prov:RUSTY PADILLA PAC 02/24/24 Ondansetron Odt 4MG Tab (ZOFRAN PO) 4 Mg Tb, 4 MG PO Q6HP PRN, #20 TAB ODT TAB-DISSOLVE IN MOUTH, THEN SWALLOW Prov:MELINA DEWEY PAC 07/14/23 Celecoxib (Celebrex) 100 Mg Cap, 100 MG PO DAILY PRN, #14 MG Prov:CESAR SUMMERS N.P. 11/18/13 Cyclobenzaprine Hcl (FLEXERIL) 10 Mg Tab, 10 MG PO TID PRN, #20 TAB Prov:KRISTOPHERCESAR N.P. 11/18/13 Reported Medications Hydrocodone-Acetaminophen (Hydrocodone/Acetaminophen) 1 Tab Tab, #30 08/26/13 Divalproex Sodium (Depakote Er) 500 Mg Tab 02/23/10 Information Source: Patient Mode of Arrival: Ambulatory Severity: Moderate Timing: Hours Duration: Since onset Prehospital treatment: None Past Medical History PAST MEDICAL HISTORY: CVA, High Lipids, HTN, PUD, Seizures Past Medical History (Other): Surgical History (Other): head Sx Family History Family History: Reviewed,noncontributory to illness, Family hx of heart harshad Social History Smoker: Cigarettes Alcohol: Occasionally Drugs: Denies Drug Use Lives In: Home Constitutional: denies: chills, diaphoresis, fatigue, fever, malaise, sweats, weakness, others EENTM: denies: blurred vision, double vision, ear bleeding, ear discharge, ear drainage, ear pain, ear ringing, eye pain, eye redness, hearing loss, mouth pain, mouth swelling, nasal discharge, nose bleeding, nose congestion, nose pain, photophobia, tearing, throat pain, throat swelling, voice changes, others Respiratory: denies: cough, hemoptysis, orthopnea, SOB at rest, shortness of breath, SOB with excertion, stridor, wheezing, others Cardiovascular: denies: chest pain, dizzy spells, diaphoresis, Dyspnea on exertion, edema, irregular heart beat, left arm pain, lightheadedness, palpitat ions, PND, syncope, others Gastrointestinal: reports: abdominal pain, diarrhea, nausea, vomiting; denies: abdomen distended, blood streaked bowels, constipated, dysphagia, difficulty swallowing, hematemesis, melena, poor appetite, poor fluid intake, rectal bleeding, rectal pain, others Genitourinary: denies: burning, dysuria, flank pain, frequency, hematuria, incontinence, penile discharge, penile sore, pain, testicle pain, testicle swelling, urgency, others Neurological: denies: dizziness, fainting, headache, left sided numbness, left sided weakness, numbness, paresthesia, pre-existing deficit, right sided num bness, right sided weakness, seizure, speech problems, tingling, tremors, weakness, others Musculoskeletal: denies: back pain, gout, joint pain, joint swelling, muscle pain, muscle stiffness, neck pain, others Integumetry: denies: bruises, change in color, change in hair/nails, dryness, laceration, lesions, lumps, rash, wounds, others Allergic/Immunocompromised: denies: Difficulty Healing, Frequent Infections, Hives, Itching, others Hematologic/Lymphatic: denies: anemia, blood clots, easy bleeding, easy bruising, swollen glands, others Endocrine: denies: excessive hunger, excessive sweating, excessive thirst, excessive urination, flushing, intolerance to cold, intolerance to heat, unexplained weight gain, unexplained weight loss, others Psychiatric: denies: anxiety, bipolar disorder, depression, hopeless, panic disorder, schizophrenia, sleepless, suicidal, others All Other Systems: Reviewed and Negative Physical Exam General Appearance: No Apparent Distress HEENT: Normal ENT Inspection, Pharynx Normal, TMs Normal Neck: Full Range of Motion, Non-Tender, Normal, Normal Inspection Respiratory: Chest Non-Tender, Lungs Clear, No Accessory Muscle Use, No Respiratory Distress, Normal Breath Sounds Cardiovascular: No Edema, No JVD, No Murmur, No Gallop, Normal Peripheral Pulses, Regular Rate/Rhythm Breast Exam: Deferred Gastrointestinal: No Organomegaly, Non Tender, No Pulsatile Mass, Normal Bowel Sounds, Soft Genitalia: Deferred Pelvic: Deferred Rectal: Deferred Extremities: No calf tenderness, Normal capillary refill, Normal inspection, Normal range of motion, Non-tender, No pedal edema Musculoskeletal : Apperance: Normal Neurologic: Alert, 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 Was a procedure done?: No Differential Dx Considerations may include: UTI, gastritis, gastroenteritis, viral syndrome, electrolyte imbalance, dehydration X-Ray, Labs, Meds, VS Vital Signs Date Time Temp Pulse Resp B/P (MAP) Pulse Ox O2 Delivery O2 Flow Rate FiO2 12/2/24 15:37 97.5 120 18 147/82 (103) 97 Lab Test 09/23/24 16:05 Range/Units White Blood Count 12.2 H 4.4-10.8 10^3/uL Red Blood Count 4.93 4.5-5.90 10^6/uL Hemoglobin 15.9 13.5-17.5 g/dL Hematocrit 47.1 41.0-53.0 % Mean Corpuscular Volume 95.4 80.0-100.0 fL Mean Corpuscular Hemoglobin 32.2 H 28.0-32.0 pg Mean Corpuscular Hemoglobin Concent 33.7 32.0-36.0 g/dL Red Cell Distribution Width 14.0 11.8-14.3 % Platelet Count 290 140-450 10^3/uL Mean Platelet Volume 8.0 6.9-10.8 fL Neutrophils (%) (Auto) 78.3 37.0-80.0 % Lymphocytes (%) (Auto) 11.3 10.0-50.0 % Monocytes (%) (Auto) 9.4 0.0-12.0 % Eosinophils (%) (Auto) 0.3 0.0-7.0 % Basophils (%) (Auto) 0.7 0.0-2.0 % Neutrophils # (Auto) 9.5 H 1.6-8.6 10 ^3/uL Lymphocytes # (Auto) 1.4 0.4-5.4 10 ^3/uL Monocytes # (Auto) 1.1 0-1.3 10 ^3/uL Eosinophils # (Auto) 0 0-0.8 10 ^3/uL Basophils # (Auto) 0.1 0-0.2 10 ^3/uL Nucleated Red Blood Cells 0.0 % Sodium Level 138 136-145 mmol/L Potassium Level 3.8 3.5-5.1 mmol/L Chloride Level 105 98-107 mmol/L Carbon Dioxide Level 19 L 20-31 mmol/L Anion Gap 14 5-15 Blood Urea Nitrogen 7 L 9-23 mg/dL Creatinine 0.85 0.700-1.30 mg/dL Glomerular Filtration Rate Calc 101 >90 mL/min BUN/Creatinine Ratio 8.2 L 10.0-20.0 Serum Glucose 108 H 74-106 mg/dL Calcium Level 10.1 8.7-10.4 mg/dL Total Bilirubin 1.0 0.2-1.0 mg/dL Aspartate Amino Transferase (AST) 26 13-40 U/L Alanine Aminotransferase (ALT) 30 7-40 U/L Alkaline Phosphatase 59 46-116 U/L Total Protein 7.7 5.7-8.2 g/dL Albumin 5.1 H 3.2-4.8 g/dL PROCEDURE(s): ABPL - CT AB PEL WO CON-NO ORAL OR IV IMPRESSION: 1. Normal appendix. 2. Left inguinal hernia containing fat. 3. No obstructive uropathy. 4. Degenerative changes lumbar spine as described. The CBC shows a slightly elevated white blood cell count of 12.2 The chemistry panel is within normal limits The patient was given a prescription for Lomotil for the diarrhea The patient will return to the emergency department's the condition worsens. Images Reviewed?: Images reviewed and evaluated by me Time of 1ST Reevaluation: 16:10 Reevaluation 1ST: Unchanged Time of 2ND Reevaluation: 16:56 Reevaluation 2ND: Unchanged Patient Education/Counseling: Diagnosis, Treatment, Prognosis, Need For Follow Up Family Education/Counseling: No Family Present Departure 1 Departure Time of Disposition: 16:56 Impression: Primary Impression: Diarrhea Qualified Codes: R19.7 - Diarrhea, unspecified Additional Impression: Abdominal pain Qualified Codes: R10.9 - Unspecified abdominal pain Disposition: 01 HOME / SELF CARE / HOMELESS Condition: Fair Discharged With: Self Critical Care Note Critical Care Time?: No Stability Stability form required: No Heart Score Heart Score: Heart Score Response (Comments) Value History N/A 0 EKG N/A 0 Age N/A 0 Risk Factors N/A 0 Troponin N/A 0 Total 0 I personally scribed for SIRIA MOREAU MD ([email or web address]) on 09/23/24 at 16:16. Electronically submitted by Juan F Herrmann ([email or web address]). I personally scribed for SIRIA MOREAU MD ([email or web address]) on 09/23/24 at 16:54. Electronically submitted by Juan F Herrmann ([email or web address]). SIRIA MOREAU MD Sep 23, 2024 16:16
[2024-09-23 16:23] LABS: Basophils # (auto) 0.1 10 ^3/uL (0-0.2); Basophils % (auto) 0.7 % (0.0-2.0); Eosinophils # (auto) 0 10 ^3/uL (0-0.8); Eosinophils % (auto) 0.3 % (0.0-7.0); Hematocrit 47.1 % (41.0-53.0); Hemoglobin 15.9 g/dL (13.5-17.5); Lymphocytes # (auto) 1.4 10 ^3/uL (0.4-5.4); Lymphocytes % (auto) 11.3 % (10.0-50.0); Mean Corpuscular Hemoglobin 32.2 pg (28.0-32.0); Mean Corpuscular Hgb Conc. 33.7 g/dL (32.0-36.0); Mean Corpuscular Volume 95.4 fL (80.0-100.0); Monocytes # (auto) 1.1 10 ^3/uL (0-1.3); Monocytes % (auto) 9.4 % (0.0-12.0); Neutrophils # (auto) 9.5 10 ^3/uL (1.6-8.6); Neutrophils % (auto) 78.3 % (37.0-80.0); Platelet Count (auto) 290 10^3/uL (140-450); Red Blood Cells 4.93 10^6/uL (4.5-5.90); White Blood Cell 12.2 10^3/uL (4.4-10.8)
[2024-09-23 16:39] LABS: Alanine Aminotransferase 30 U/L (7-40); Albumin 5.1 g/dL (3.2-4.8); Alkaline Phosphatase 59 U/L (46-116); Anion Gap 14 (5-15); Aspartate Aminotransferase 26 U/L (13-40); BUN/Creatinine Ratio 8.2 (10.0-20.0); Blood Urea Nitrogen 7 mg/dL (9-23); Calcium 10.1 mg/dL (8.7-10.4); Carbon Dioxide 19 mmol/L (20-31); Chloride 105 mmol/L (98-107); Glucose 108 mg/dL (74-106); Potassium 3.8 mmol/L (3.5-5.1); Sodium 138 mmol/L (136-145)
[2024-09-23 16:40] LABS: Total Protein 7.7 g/dL (5.7-8.2)
--- NOTE | 2024-09-23 16:43 | DVH ---
EXAM: CT Abdomen and Pelvis Without Intravenous Contrast CLINICAL INDICATION: pain TECHNIQUE: Axial computed tomography images of the abdomen and pelvis without intravenous contrast. This CT exam was performed using one or more of the following dose reduction techniques: automated exposure control, adjustment of the mA and/or kV according to patient size, and/or use of iterative r econstruction technique. RADIATION DOSE: CTDlvol= 7.6 mGy, DLP= 424.22 mGy-cm COMPARISON: CT CT AB PEL WITH IV CON ONLY on DOS: 08/29/24, CT CT AB PEL WO CON-NO ORAL OR IV on DOS : 07/10/24, CT CT AB PEL WO CON-NO ORAL OR IV on DOS: 03/04/24 FINDINGS: LUNG BASES: Unremarkable. No mass. No consolidation. ABDOMEN: LIVER: Fatty infiltration of the liver. GALLBLADDER AND BILE DUCTS: Unremarkable. No calcified stones. No ductal dilation. PANCREAS: Unremarkable. No ductal dilation. SPLEEN: Unremarkable. No splenomegaly. ADRENALS: Unremarkable. No mass. KIDNEYS AND URETERS: Unremarkable. No stones within either kidney. No hydronephrosis. STOMACH AND BOWEL: Unremarkable. No obstruction. No mucosal thickening. PELVIS: APPENDIX: Normal appendix. BLADDER: Unremarkable. No stones. REPRODUCTIVE: Unremarkable as visualized. ABDOMEN and PELVIS: INTRAPERITONEAL SPACE: Unremarkable. No free air. No significant fluid collection. BONES/JOINTS: Degenerative disc disease throughout the lumbar spine. Degenerative facet arthropathy throughout the lumbar spine, most prominent in the lower lumbar spine. No acute fracture. No dislo cation. SOFT TISSUES: Left inguinal hernia containing fat. VASCULATURE: Unremarkable. No abdominal aortic aneurysm. LYMPH NODES: Unremarkable. No enlarged lymph nodes. OTHER FINDINGS: . . IMPRESSION: 1. Normal appendix. 2. Left inguinal hernia containing fat. 3. No obstructive uropathy. 4. Degenerative changes lumbar spine as described. HS:Y
[2024-09-23] MEDS ORDERED: DIPH2.5T73 PO (17:05)
[2024-09-23 18:01] VITALS: BP 140/89; TEMP 98.3
[2024-09-23 19:15] VITALS: PULSE 117; RESP 22; O2SAT 94
== END 2024-09-23 19:21 | disposition home or self-care (01) ==
LOC: ER 15:29
DX: R19.7 Diarrhea, unspecified (principal); R10.30 Lower abdominal pain, unspecified; I10 Essential (primary) hypertension; E78.5 Hyperlipidemia, unspecified; D72.829 Elevated white blood cell count, unspecified; F17.210 Nicotine dependence, cigarettes, uncomplicated; Z79.899 Other long term (current) drug therapy; Z88.6 Allergy status to analgesic agent; Z88.8 Allergy status to other drugs, medicaments and biological substances
CPT/HCPCS: 36415; 74176; 80053; 85025

== ENCOUNTER 2024-10-01 15:32 | Emergency (ER) | payer OTHER, MEDICAID ==
[~2024-10-01] VITALS: Ht 190.5 cm; Wt 83.0 kg
[~2024-10-01 15:32] MED LIST changes: +ACET-1881 PO; +ATOR-507 PO; +DIPH2.5T73 PO
--- NOTE | 2024-10-01 15:52 | ED.PDOC ---
GI ASSESSMENT HPI Comments 59 year old male presents to the ED with chief complaint of hernia pain. Patient reports that he has a left inguinal hernia that has been increasing in pain over time. Patient relays that he is scheduled for surgery tomorrow ar 6am by Dr. Petty, however, he could not bear the pain and came in today. Patient states he has had his hernia for 12 months and it is not able to be reduced now. Patient denies any N/V/D, fever, chills, dizziness, or chest pain. Time Seen by MD: 15:46 Primary Care Provider: SOHEILA Reviewed Notes: Nurses Notes, Medications, Allergies Allergies: Coded Allergies: Caffeine (Verified Allergy, Severe, 09/13/11) Phenacetin (Verified Allergy, Severe, 09/13/11) Aspirin (Unverified Allergy, Unknown, 04/30/14) Home Meds Active Scripts Diphenoxylate W/ Atropine (Lomotil) 2.5 Mg Tab, 1 TAB PO TID, #30 TAB Prov:SIRIA MOREAU MD 09/23/24 Ibuprofen (Ibuprofen) 800 Mg Tab, 1 TAB PO TID PRN for 5 Days, #15 TAB 1 Refill Prov:ELIZA ARREOLA 08/30/24 Gabapentin (Gabapentin) 300 Mg Cap, 1 CAP PO TID, #30 CAP Prov:CRISTIAN KAUR MD 07/13/24 Dicyclomine Hcl (BENTYL CAPSULE) 10 Mg Cp, 2 CAP PO TID, #30 CAP abdominal cramping Prov:CRISTIAN KAUR MD 07/13/24 Pantoprazole Sodium Sesquihydr (Pantoprazole Sodium Dr) 40 Mg Tab, 40 MG PO DAILY, #60 TAB Prov:CRISTIAN KAUR MD 07/13/24 Albuterol Sulfate (Albuterol Sulfate Hfa) 108 Mcg/Act Aer, 108 MCG IN Q4HPRN PRN, #1 AER Prov:RUSTY PADILLA PAC 02/24/24 Ondansetron Odt 4MG Tab (ZOFRAN PO) 4 Mg Tb, 4 MG PO Q6HP PRN, #20 TAB ODT TAB-DISSOLVE IN MOUTH, THEN SWALLOW Prov:MELINA DEWEY PAC 07/14/23 Celecoxib (Celebrex) 100 Mg Cap, 100 MG PO DAILY PRN, #14 MG Prov:KRISTOPHERCESAR N.P. 11/18/13 Cyclobenzaprine Hcl (FLEXERIL) 10 Mg Tab, 10 MG PO TID PRN, #20 TAB Prov:KRISTOPHERCESAR N.P. 11/18/13 Reported Medications Acetaminophen (Acetaminophen) 325 Mg Tab, 325 MG PO Q4HP PRN for MILD PAIN for 30 Days, MG 0 Refills 09/27/24 Atorvastatin Calcium (Lipitor) 40 Mg Tab, 1 TAB PO DAILY, #30 TAB 5 Refills 09/27/24 Hydrocodone-Acetaminophen (Hydrocodone/Acetaminophen) 1 Tab Tab, #30 08/26/13 Divalproex Sodium (Depakote Er) 500 Mg Tab 02/23/10 Information Source: Patient Mode of Arrival: Ambulatory Timing: Days Duration: Since onset Prehospital treatment: None Quality: Aching Vomitus: None Stool: Normal Severity: Moderate Recent: None Recent Hx of: None Pain Location: Other (Left inguinal region) Modifying Factors: Nothing Associated sign and symptoms: Abdominal Pain Past Medical History PAST MEDICAL HISTORY: CVA, High Lipids, HTN, PUD, Seizures Past Medical History (Other): TBI, Left inguinal hernia Surgical History (Other): TBI surgery Family History Family History: Reviewed,noncontributory to illness, Family hx of heart harshad Social History Smoker: Cigarettes Alcohol: Occasionally Drugs: Denies Drug Use Lives In: Home Constitutional: denies: chills, diaphoresis, fatigue, fever, malaise, sweats, weakness, others EENTM: denies: blurred vision, double vision, ear bleeding, ear discharge, ear drainage, ear pain, ear ringing, eye pain, eye redness, hearing loss, mouth pain, mouth swelling, nasal discharge, nose bleeding, nose congestion, nose pain, photophobia, tearing, throat pain, throat swelling, voice changes, others Respiratory: denies: cough, hemoptysis, orthopnea, SOB at rest, shortness of breath, SOB with excertion, stridor, wheezing, others Cardiovascular: denies: chest pain, dizzy spells, diaphoresis, Dyspnea on exertion, edema, irregular heart beat, left arm pain, lightheadedness, palpitations, PND, syncope, others Gastrointestinal: reports: abdominal pain; denies: abdomen distended, blood streaked bowels, constipated, diarrhea, dysphagia, difficulty swallowing, hematemesis, melena, nausea, poor appetite, poor fluid intake, rectal bleeding, rectal pain, vomiting, others Genitourinary: denies: burning, dysuria, flank pain, frequency, hematuria, incontinence, penile discharge, penile sore, pain, testicle pain, testicle swelling, urgency, others Neurological: denies: dizziness, fainting, headache, left sided numbness, left sided weakness, numbness, paresthesia, pre-existing deficit, right sided numbness, right sided weakness, seizure, speech problems, tingling, tremors, weakness, others Musculoskeletal: denies: back pain, gout, joint pain, joint swelling, muscle pain, muscle stiffness, neck pain, others Integumetry: denies: bruises, change in color, change in hair/nails, dryness, laceration, lesions, lumps, rash, wounds, others Allergic/Immunocompromised: denies: Difficulty Healing, Frequent Infections, Hives, Itching, others Hematologic/Lymphatic: denies: anemia, blood clots, easy bleeding, easy bruising, swollen glands, others Endocrine: denies: excessive hunger, excessive sweating, excessive thirst, excessive urination, flushing, intolerance to cold, intolerance to heat, unexplained weight gain, unexplained weight loss, others Psychiatric: denies: anxiety, bipolar disorder, depression, hopeless, panic disorder, schizophrenia, sleepless, suicidal, others All Other Systems: Reviewed and Negative Physical Exam General Appearance: No Apparent Distress, Normal HEENT: Normal ENT Inspection, Pharynx Normal, TMs Normal Neck: Full Range of Motion, Non-Tender, Normal, Normal Inspection Respiratory: Chest Non-Tender, Lungs Clear, No Accessory Muscle Use, No Respiratory Distress, Normal Breath Sounds Cardiovascular: No Edema, No JVD, No Murmur, No Gallop, Normal Peripheral Pulses, Regular Rate/Rhythm Breast Exam: Deferred Gastrointestinal: Hernia, No Organomegaly, No Pulsatile Mass, Normal Bowel Sounds, Soft, Tenderness (Left inguinal hernia tenderness noted. 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 Was a procedure done?: No GI differential Dx Differential Diagnosis: Appendicitis, Constipation, Diverticular disease, Gastritis/PUD, Gastroenteritis, Hernia, Inflammatory BD, Ischemic Bowel, Urinary Obstruction, UTI, Urolithiasis, Electrolyte Imbalance, Food Poisoning, Bacterial, Parasitic, Viral, Hypovolemia, Impaction, Ischemic Bowel, Mass, Kidney Stone X-Ray, Labs, Meds, VS Vital Signs Date Time Temp Pulse Resp B/P (MAP) Pulse Ox O2 Delivery O2 Flow Rate FiO2 10/01/24 16:54 88 20 145/80 10/01/24 16:35 104 16 98 Room Air* 0 21 10/01/24 16:24 104 18 136/85 10/01/24 16:10 104 18 136/85 (102) 95 10/01/24 15:56 98.0 83 22 161/104 (123) 97 Lab Test 10/01/24 16:01 Range/Units White Blood Count 8.0 4.4-10.8 10^3/uL Red Blood Count 4.66 4.5-5.90 10^6/uL Hemoglobin 15.3 13.5-17.5 g/dL Hematocrit 44.8 41.0-53.0 % Mean Corpuscular Volume 96.1 80.0-100.0 fL Mean Corpuscular Hemoglobin 32.8 H 28.0-32.0 pg Mean Corpuscular Hemoglobin Concent 34.2 32.0-36.0 g/dL Red Cell Distribution Width 14.7 H 11.8-14.3 % Platelet Count 226 140-450 10^3/uL Mean Platelet Volume 7.8 6.9-10.8 fL Neutrophils (%) (Auto) 60.4 37.0-80.0 % Lymphocytes (%) (Auto) 21.6 10.0-50.0 % Monocytes (%) (Auto) 15.2 H 0.0-12.0 % Eosinophils (%) (Auto) 1.7 0.0-7.0 % Basophils (%) (Auto) 1.1 0.0-2.0 % Neutrophils # (Auto) 4.8 1.6-8.6 10 ^3/uL Lymphocytes # (Auto) 1.7 0.4-5.4 10 ^3/uL Monocytes # (Auto) 1.2 0-1.3 10 ^3/uL Eosinophils # (Auto) 0.1 0-0.8 10 ^3/uL Basophils # (Auto) 0.1 0-0.2 10 ^3/uL Nucleated Red Blood Cells 0.1 % Prothrombin Time 10.6 9.3-11.8 sec Prothrombin Time INR 1.00 0.9-1.15 Activated Partial Thromboplast Time 23.8 L 24.5-34.5 SEC Sodium Level 141 136-145 mmol/L Potassium Level 3.9 3.5-5.1 mmol/L Chloride Level 104 98-107 mmol/L Carbon Dioxide Level 26 20-31 mmol/L Anion Gap 11 5-15 Blood Urea Nitrogen 9 9-23 mg/dL Creatinine 0.96 0.700-1.30 mg/dL Glomerular Filtration Rate Calc 92 >90 mL/min BUN/Creatinine Ratio 9.4 L 10.0-20.0 Serum Glucose 114 H 74-106 mg/dL Calcium Level 9.8 8.7-10.4 mg/dL Current Medications Medications (Trade) Dose Ordered Sig/Yareli Route Start Time Stop Time Status Last Admin Morphine Sulfate 2 mg ONCE ONCE IV 10/01/24 15:45 10/01/24 15:46 DC 10/01/24 16:24 Ondansetron HCl (Zofran) 4 mg ONCE ONCE IV 10/01/24 15:45 10/01/24 15:46 DC 10/01/24 16:23 Sodium Chloride 1,000 ml @ 125 mls/hr Q8H ONCE IV 10/01/24 15:45 10/01/24 23:44 10/01/24 16:23 CT Abd/Pel: FINDINGS: Evaluation of the abdomen and pelvis is limited without intravenous contrast. The liver, gallbladder, pancreas, kidneys, adrenal glands, and spleen appear within normal limits. There is no gross evidence of abdominal lymphadenopathy. There is no free fluid or free air. The stomach grossly appears unremarkable. The small and large bowel loops demonstrate normal caliber and appear within normal limits.. There is no evidence of acute appendicitis. The abdominal aorta and IVC appear within normal limits. The bladder appears unremarkable for the degree of distention. Pelvic organ appears within normal limits. There is no gross evidence of a pelvic mass. There is no free fluid collection. There is a stable fat containing left inguinal hernia. Lung bases are clear. There is no acute osseous abnormality. There are degenerative changes in the lower lumbar spine. IMPRESSION: 1. There is no acute process in the abdomen and pelvis. 2. Stable fat containing left inguinal hernia. Images Reviewed?: Images reviewed and evaluated by me Time of 1ST Reevaluation: 16:46 Reevaluation 1ST: Unchanged Patient Education/Counseling: Diagnosis, Treatment, Prognosis, Need For Follow Up Family Education/Counseling: No Family Present Additional Information - I reviewed the following notes from patient's past medical encounters: 08/29 visit for abdominal pain. - The following tests were ordered, and results were reviewed by me: PT PTT, CBC, BMP, and CT Abd/Pel. - I reviewed and agreed with the following test results read by other provider: CT Abd/Pel. - I discussed treatments and results with medical personnel. pt does not have incarceration of bowel in hernia. he has fatty tissue in the chronic hernia. he is scheduled for surgery in AM. he is stable for surgery as scheduled. Departure 1 Departure Time of Disposition: 17:22 Impression: Primary Impression: Inguinal hernia Qualified Codes: K40.91 - Unilateral inguinal hernia, without obstruction or gangrene, recurrent Disposition: HOME / SELF CARE / HOMELESS Condition: Good Discharged With: Self Critical Care Note Critical Care Time?: Yes (55 min-critical care time only) Critical care comment: due to concerns for pt's condition deteriorating, the care required my highest level of attention and readiness to intervene. i assessed the patient, ordered the appropriate treatments and tests and reassessed his response. i communicated with medical personnel and consultants, i reviewed his medical records, and formulated a treatment plan. cc time does not include any procedures Stability Stability form required: No Heart Score Heart Score: Heart Score Response (Comments) Value History N/A 0 EKG N/A 0 Age N/A 0 Risk Factors N/A 0 Troponin N/A 0 Total 0 I personally scribed for JOYCE SAUCEDO MD ([email or web address]) on 10/01/24 at 15:52. Electronically submitted by Mitch Diamond ([email or web address]). I personally scribed for JOYCE SAUCEDO MD ([email or web address]) on 10/01/24 at 17:04. Electronically submitted by Mitch Diamond ([email or web address]). JOYCE SAUCEDO MD Oct 01, 2024 15:52
--- NOTE | 2024-10-01 16:18 | DVH ---
CT ABDOMEN AND PELVIS WITHOUT CONTRAST CLINICAL HISTORY: left inguinal hernia TECHNIQUE: Multiple contiguous axial images of the abdomen and pelvis without intravenous contrast. The images were reformatted degenerate coronal and sagittal reconstructions. All CT scans at this medical facility are performed using dose modulation techniques as appropriate t o a performed exam including the following:Automated exposure control was utilized; adjustment of the MA and/or KV according to patient size; and use of iterative reconstruction technique. Radiation Dose Information: CT Dose: CTDI volume is 9.46 mGy. Dose-length product is 600.77 mGy*cm Comparison: CT CT AB PEL WO CON-NO ORAL OR IV on DOS: 09/23/24, CT CT AB PEL WITH IV CON ONLY on DOS: 08/29/24 FINDINGS: Evaluation of the abdomen and pelvis is limited without intravenous contrast. The liver, gallbladder, pancreas, kidneys, adrenal glands, and spleen appear within normal limits. There is no gross evidence of abdominal lymphadenopathy. There is no free fluid or free air. The stomach grossly appears unremarkable. The small and large bowel loops demonstrate normal caliber and appear within normal limits.. There is no evidence of acute appendicitis. The abdominal aorta and IVC appear within normal limits. The bladder appears unremarkable for the degree of distention. Pelvic organ appears within normal hardin its. There is no gross evidence of a pelvic mass. There is no free fluid collection. There is a stab le fat containing left inguinal hernia. Lung bases are clear. There is no acute osseous abnormality. There are degenerative changes in the lower lumbar spine. IMPRESSION: 1. There is no acute process in the abdomen and pelvis. 2. Stable fat containing left inguinal hernia. HS:Y
[2024-10-01 16:22] LABS: Basophils # (auto) 0.1 10 ^3/uL (0-0.2); Basophils % (auto) 1.1 % (0.0-2.0); Eosinophils # (auto) 0.1 10 ^3/uL (0-0.8); Eosinophils % (auto) 1.7 % (0.0-7.0); Hematocrit 44.8 % (41.0-53.0); Hemoglobin 15.3 g/dL (13.5-17.5); Lymphocytes # (auto) 1.7 10 ^3/uL (0.4-5.4); Lymphocytes % (auto) 21.6 % (10.0-50.0); Mean Corpuscular Hemoglobin 32.8 pg (28.0-32.0); Mean Corpuscular Hgb Conc. 34.2 g/dL (32.0-36.0); Mean Corpuscular Volume 96.1 fL (80.0-100.0); Monocytes # (auto) 1.2 10 ^3/uL (0-1.3); Monocytes % (auto) 15.2 % (0.0-12.0); Neutrophils # (auto) 4.8 10 ^3/uL (1.6-8.6); Neutrophils % (auto) 60.4 % (37.0-80.0); Nucleated Red Blood Cells % 0.1 %; Platelet Count (auto) 226 10^3/uL (140-450); Red Blood Cells 4.66 10^6/uL (4.5-5.90); Red Cell Distribution Width 14.7 % (11.8-14.3)
[2024-10-01] MEDS: SODIUM CHLORIDE 0.9% 1,000 ML IV ONE (16:23)
[2024-10-01] MEDS: ONDANSETRON HCL 4 MG/2 ML VIAL IV ONE (16:23)
[2024-10-01] MEDS: MORPHINE SULFATE INJ 2 MG/ml SYRG IV ONE (16:24)
[2024-10-01 16:32] LABS: Chloride 104 mmol/L (98-107); Potassium 3.9 mmol/L (3.5-5.1); Sodium 141 mmol/L (136-145)
[2024-10-01 16:33] LABS: Anion Gap 11 (5-15); Carbon Dioxide 26 mmol/L (20-31)
[2024-10-01 16:34] LABS: Calcium 9.8 mg/dL (8.7-10.4)
[2024-10-01 16:35] VITALS: PULSE 104; RESP 16; O2SAT 98
[2024-10-01 16:38] LABS: BUN/Creatinine Ratio 9.4 (10.0-20.0); Blood Urea Nitrogen 9 mg/dL (9-23)
[2024-10-01 16:41] LABS: Glucose 114 mg/dL (74-106)
[2024-10-01 16:49] LABS: Partial Thromboplastin Time 23.8 SEC (24.5-34.5); Prothrombin Time 10.6 sec (9.3-11.8)
[2024-10-01 16:54] VITALS: BP 145/80; PULSE 88; RESP 20
== END 2024-10-01 17:54 | disposition home or self-care (01) ==
LOC: ER 15:32
DX: K40.90 Unilateral inguinal hernia, without obstruction or gangrene, not specified as recurrent (principal); E78.5 Hyperlipidemia, unspecified; I10 Essential (primary) hypertension; F17.210 Nicotine dependence, cigarettes, uncomplicated; Z88.5 Allergy status to narcotic agent; Z79.899 Other long term (current) drug therapy; Z88.8 Allergy status to other drugs, medicaments and biological substances; Z86.73 Personal history of transient ischemic attack (TIA), and cerebral infarction without residual deficits; Z98.890 Other specified postprocedural states
CPT/HCPCS: 36415; 74176; 80048; 85025; 85610; 85730; 96361; 96374; 96375; 99285; J2270; J2405; J7030

== ENCOUNTER 2024-10-02 02:30 | Emergency (ER) | payer OTHER, MEDICAID ==
[2024-10-02] MEDS ORDERED: ceFAZolin 2 GM/D5W100ml 100 ML IV ONE (06:21)
== END 2024-10-02 04:52 | disposition home or self-care (01) ==
LOC: ER 02:30
DX: R10.2 Pelvic and perineal pain (principal); Z53.21 Procedure and treatment not carried out due to patient leaving prior to being seen by health care provider

== ENCOUNTER 2024-10-02 06:22 | Day surgery (SDC) | payer OTHER, MEDICAID ==
[~2024-10-02] VITALS: Ht 190.5 cm; Wt 88.5 kg
[2024-10-02] MEDS ORDERED: SUCCINYLCHOLINE CHLORIDE 20 MG/ML 10ML VIAL IV ONE (07:01)
[2024-10-02] MEDS ORDERED: ROCURONIUM 10MG/ML 10ML VIAL IV ONE (07:01)
[2024-10-02] MEDS ORDERED: fentaNYL CITRATE 100 MCG/2 ML VL ONE (07:15)
[2024-10-02] MEDS ORDERED: DexAMETHasone SOD PHOS 10MG/1ML VIAL INJ ONE (07:16)
[2024-10-02] MEDS ORDERED: SODIUM CHLORIDE LOCK 10 ML ONE (07:16)
[2024-10-02] MEDS ORDERED: MEPERIDINE HCL (50 MG/ML) 1 ML VIAL ONE (07:16)
[2024-10-02] MEDS ORDERED: LIDOCAINE HCL 2% TOP JELLY 5ML TOP ONE (07:16)
[2024-10-02] MEDS ORDERED: PROPOFOL 10 MG/ML 20 ML IV ONE (07:16)
[2024-10-02] MEDS ORDERED: MIDAZOLAM HCL 2MG/2ML 2ml VIAL (1mg/ml) ONE (07:16)
[2024-10-02] MEDS ORDERED: LIDOCAINE 1% INJ PF 5ML AMP ONE (07:16)
[2024-10-02] MEDS: BUPIVACAINE 0.5% P/F INJ 10 ML VIAL ONE (07:55)
[2024-10-02] MEDS: LIDOCAINE W/ EPINEPHRINE 1% 20ML VIAL ONE (07:55)
[2024-10-02] MEDS ORDERED: METOCLOPRAMIDE HCL 5MG/ml INJ 2ml VIAL IV ONE (08:15)
[2024-10-02] MEDS ORDERED: fentaNYL CITRATE 100 MCG/2 ML VL IV PRN (08:15)
[2024-10-02] MEDS ORDERED: HYDROmorphone HCL 2 MG/ML VL/or syr IV PRN (08:15)
[2024-10-02] MEDS ORDERED: MORPHINE SULFATE INJ 2 MG/ml SYRG IV PRN (08:15)
[2024-10-02 08:24] VITALS: PULSE 94; RESP 17; O2SAT 95
[2024-10-02 08:29] VITALS: TEMP 97.3
--- NOTE | 2024-10-02 08:39 | DVHOP ---
DATE OF SURGERY: 10/02/2024 PREOPERATIVE DIAGNOSIS: Left inguinal hernia. POSTOPERATIVE DIAGNOSIS: Left inguinal hernia (direct). SURGEON: Adriano Petty MD DICE TABLE OPERATOR: Armin De León. ANESTHESIA: General endotracheal. ANESTHESIOLOGIST: Dr. Henley. PROCEDURE: Lory repair of left inguinal hernia. DESCRIPTION OF PROCEDURE: Under adequate anesthesia, with the patient's skin prepped and draped and infiltrated with 0.25% Marcaine with epinephrine, incision was made over the visible palpable bulge in the left groin. The incision was deepened with electrocautery. Adipose tissue was divided. Michael's fascia was divided down to the level of the external oblique aponeurosis. The hernia was evident. The cord structures including the hernia were encircled with a Sly drain and retracted. The ilioinguinal nerve was identified, reflected laterally and protected. The hernia was then reduced and held back with a baby Alex retractor. A Lory type repair was performed utilizing nonabsorbable sutures through the conjoint tendon and Durga's ligament and subsequently after transitional suture the reflecting portion of Poupart's ligament. The hernia repair was conducted to accommodate the tip of a probing forceps in order to prevent strangulation. The wound was irrigated, hemostasis meticulously accomplished. Ilioinguinal nerve returned to its normal anatomical position. The patient's subcutaneous tissues and skin approximated using Monocryl sutures, Dermabond glue and Steri-Strips. Testicle was placed on tension into its scrotal compartment. The patient remained stable throughout the procedure, left the operating room following an accurate needle and sponge count. No family members were present in the waiting area. Adriano Petty MD PF/SAY TID: [id number] RECEIPT: [id number]
[2024-10-02] MEDS: HYDROmorphone HCL 2 MG/ML VL/or syr IV PRN (09:24)
[2024-10-02 10:30] VITALS: BP 135/84; PULSE 81; RESP 12; O2SAT 97
== END 2024-10-02 11:10 | disposition home or self-care (01) ==
LOC: SUR 06:22
PROVIDERS: ATTEND Surgery
DX: K40.90 Unilateral inguinal hernia, without obstruction or gangrene, not specified as recurrent (principal); K44.9 Diaphragmatic hernia without obstruction or gangrene; I10 Essential (primary) hypertension; G40.909 Epilepsy, unspecified, not intractable, without status epilepticus; Z79.899 Other long term (current) drug therapy; Z86.73 Personal history of transient ischemic attack (TIA), and cerebral infarction without residual deficits; Z98.890 Other specified postprocedural states
CPT/HCPCS: 49505; 86850; 86900; 86901; C1781; J0330; J1100; J1171; J2175; J2250; J2704; J3010; J3490

== ENCOUNTER 2024-10-08 13:20 | Emergency (ER) | payer OTHER, MEDICAID ==
[~2024-10-08] VITALS: Ht 177.8 cm; Wt 90.0 kg
--- NOTE | 2024-10-08 13:36 | ED.PDOC ---
History of Present Illness HPI Comments 59 y/o M, Hx of CVA, HLD, HTN, PUD, and seizures, is [id number]-ambulance for c/o LLQ abdominal and left groin pain and constipation, today. Patient endorses on symptoms onset following recent left-inguinal hernia repair performed by MD Adriano Ramos at [facility] on 10/02/24. He also comments on "feeling something moving" underneath surgical incision site whenever having a bowel movement sensation. Patient reports no additional relevant or pertinent Hx, such as recent injuries or strenuous activities following surgical procedure. He denies having any nausea, vomiting, bleeding, fever, chills, or other associated symptoms or modifiers at this time. Time Seen by MD: 13:20 Primary Care Provider: SOHEILA Reviewed Notes: Nurses Notes, Pump Servicer Notes, Medications, Allergies Allergies: Coded Allergies: Caffeine (Verified Allergy, Severe, 09/13/11) Phenacetin (Verified Allergy, Severe, 09/13/11) Aspirin (Unverified Allergy, Unknown, 04/30/14) Home Meds Active Scripts Diphenoxylate W/ Atropine (Lomotil) 2.5 Mg Tab, 1 TAB PO TID, #30 TAB Prov:SIRIA MOREAU MD 09/23/24 Ibuprofen (Ibuprofen) 800 Mg Tab, 1 TAB PO TID PRN for 5 Days, #15 TAB 1 Refill Prov:ELIZA ARREOLA 08/30/24 Gabapentin (Gabapentin) 300 Mg Cap, 1 CAP PO TID, #30 CAP Prov:CRISTIAN KAUR MD 07/13/24 Dicyclomine Hcl (BENTYL CAPSULE) 10 Mg Cp, 2 CAP PO TID, #30 CAP abdominal cramping Prov:CRISTIAN KAUR MD 07/13/24 Pantoprazole Sodium Sesquihydr (Pantoprazole Sodium Dr) 40 Mg Tab, 40 MG PO DAILY, #60 TAB Prov:CRISTIAN KAUR MD 07/13/24 Albuterol Sulfate (Albuterol Sulfate Hfa) 108 Mcg/Act Aer, 108 MCG IN Q4HPRN PRN, #1 AER Prov:RUSTY PADILLA PAC 02/24/24 Ondansetron Odt 4MG Tab (ZOFRAN PO) 4 Mg Tb, 4 MG PO Q6HP PRN, #20 TAB ODT TAB-DISSOLVE IN MOUTH, THEN SWALLOW Prov:MELINA DEWEY Tj PAC 07/14/23 Celecoxib (Celebrex) 100 Mg Cap, 100 MG PO DAILY PRN, #14 MG Prov:CESAR SUMMERS N.P. 11/18/13 Cyclobenzaprine Hcl (FLEXERIL) 10 Mg Tab, 10 MG PO TID PRN, #20 TAB Prov:CESAR SUMMERS N.P. 11/18/13 Reported Medications Acetaminophen (Acetaminophen) 325 Mg Tab, 325 MG PO Q4HP PRN for MILD PAIN for 30 Days, MG 0 Refills 09/27/24 Atorvastatin Calcium (Lipitor) 40 Mg Tab, 1 TAB PO DAILY, #30 TAB 5 Refills 09/27/24 Hydrocodone-Acetaminophen (Hydrocodone/Acetaminophen) 1 Tab Tab, #30 08/26/13 Divalproex Sodium (Depakote Er) 500 Mg Tab 02/23/10 Information Source: Patient, Emergency Med Personnel Mode of Arrival: Ambulatory Severity: Moderate Timing: Days Duration: Since onset Prehospital treatment: 12 Lead EKG, Nurse Intern Past Medical History PAST MEDICAL HISTORY: CVA, High Lipids, HTN, PUD, Seizures Surgical History: Hernia Repair (left inguinal hernia repair) Family History Family History: Reviewed,noncontributory to illness, Family hx of heart harshad Social History Smoker: Cigarettes Alcohol: Occasionally Drugs: Denies Drug Use Lives In: Home Gastrointestinal: reports: abdominal pain (LLQ), constipated Genitourinary: reports: pain (left groin pain ) All Other Systems: Reviewed and Negative (negatvie unless ottherwise stated above or in HPI) Physical Exam General Appearance: No Apparent Distress, Normal HEENT: Normal ENT Inspection, Pharynx Normal, TMs Normal Neck: Full Range of Motion, Non-Tender, Normal, Normal Inspection Respiratory: Chest Non-Tender, Lungs Clear, No Accessory Muscle Use, No Respiratory Distress, Normal Breath Sounds Cardiovascular: No Edema, No JVD, No Murmur, No Gallop, Normal Peripheral Pulses, Regular Rate/Rhythm Breast Exam: Deferred Gastrointestinal: LLQ (tenderness), No Organomegaly, No Pulsatile Mass, Normal Bowel Sounds, Soft, Tenderness ( ) Genitalia: Deferred Pelvic: Deferred Rectal: Deferred Extremities: No calf tenderness, Normal capillary refill, Normal inspection, Normal range of motion, No pedal edema, Tender (lower left extremity) Musculoskeletal : Apperance: Normal Neurologic: Alert, research analyst II-XII nml as Tested, No Motor Deficits, Normal Affect, Normal Mood, No Sensory Deficits Cerebellar Function: Normal Reflexes: Normal Skin: Dry, Normal Color, Warm Lymphatic: No Adenopathy Was a procedure done? Was a procedure done?: No Differential Dx Considerations may include: post-op complication X-Ray, Labs, Meds, VS Vital Signs Date Time Temp Pulse Resp B/P (MAP) Pulse Ox O2 Delivery O2 Flow Rate FiO2 10/08/24 16:05 106 18 133/92 10/08/24 16:00 106 20 97 Room Air* 0 21 10/08/24 15:49 97.9 106 18 133/92 (106) 94 97.9 10/08/24 13:23 98.3 82 18 136/82 (100) 97 Lab Test 10/08/24 13:48 Range/Units White Blood Count 11.1 #H 4.4-10.8 10^3/uL Red Blood Count 4.87 4.5-5.90 10^6/uL Hemoglobin 15.7 13.5-17.5 g/dL Hematocrit 46.9 41.0-53.0 % Mean Corpuscular Volume 96.4 80.0-100.0 fL Mean Corpuscular Hemoglobin 32.3 H 28.0-32.0 pg Mean Corpuscular Hemoglobin Concent 33.6 32.0-36.0 g/dL Red Cell Distribution Width 14.5 H 11.8-14.3 % Platelet Count 394 # 140-450 10^3/uL Mean Platelet Volume 7.4 6.9-10.8 fL Neutrophils (%) (Auto) 70.4 37.0-80.0 % Lymphocytes (%) (Auto) 16.2 10.0-50.0 % Monocytes (%) (Auto) 10.9 0.0-12.0 % Eosinophils (%) (Auto) 1.3 0.0-7.0 % Basophils (%) (Auto) 1.2 0.0-2.0 % Neutrophils # (Auto) 7.8 1.6-8.6 10 ^3/uL Lymphocytes # (Auto) 1.8 0.4-5.4 10 ^3/uL Monocytes # (Auto) 1.2 0-1.3 10 ^3/uL Eosinophils # (Auto) 0.1 0-0.8 10 ^3/uL Basophils # (Auto) 0.1 0-0.2 10 ^3/uL Nucleated Red Blood Cells 0.1 % Sodium Level 140 136-145 mmol/L Potassium Level 4.5 3.5-5.1 mmol/L Chloride Level 108 H 98-107 mmol/L Carbon Dioxide Level 24 20-31 mmol/L Anion Gap 8 5-15 Blood Urea Nitrogen 12 9-23 mg/dL Creatinine 0.90 0.700-1.30 mg/dL Glomerular Filtration Rate Calc 100 >90 mL/min BUN/Creatinine Ratio 13.3 10.0-20.0 Serum Glucose 91 74-106 mg/dL Calcium Level 10.5 H 8.7-10.4 mg/dL Total Bilirubin 0.3 0.2-1.0 mg/dL Aspartate Amino Transferase (AST) 50 H 13-40 U/L Alanine Aminotransferase (ALT) 96 H 7-40 U/L Alkaline Phosphatase 58 46-116 U/L Total Protein 7.5 5.7-8.2 g/dL Albumin 4.8 3.2-4.8 g/dL Current Medications Medications (Trade) Dose Ordered Sig/Yareli Route Start Time Stop Time Status Last Admin Sodium Chloride 1,000 ml @ 1,000 mls/hr Q1H ONCE IV 10/08/24 13:30 10/08/24 14:29 DC 10/08/24 16:02 Morphine Sulfate 4 mg ONCE ONCE IV 10/08/24 13:30 10/08/24 13:31 DC 10/08/24 16:05 Ondansetron HCl (Zofran) 4 mg ONCE ONCE IV 10/08/24 13:30 10/08/24 13:31 DC 10/08/24 16:03 Time of 1ST Reevaluation: 13:50 Reevaluation 1ST: Unchanged Patient Education/Counseling: Diagnosis, Treatment Family Education/Counseling: No Family Present Departure 1 Departure Time of Disposition: 17:24 (Patient presented with abdominal pain that was concerning for possible appendicits, gastritis, cholecystitis, colitis, gastroenteritis, sbo, or orther possible surgical emergency. Data: 1. I ordered and reviewed the result of at least 3 labs including a CBC, BMP, and Urinalysis. 2. I independently interpreted the following tests: CT Abdoment and Pelvis is concerning for re demonstration of hernia with fluid consolidation.Risk:This patient has a high risk of morbidity due to further diagnostic testing or treatment and may suffer from an acute abdominal process disorder. Workup reveals possible postop complication and patient should be admitted for further workup and surgical consultation. ) Impression: Primary Impression: Left inguinal hernia Additional Impression: Abdominal pain Qualified Codes: R10.32 - Left lower quadrant pain Disposition: ADMITTED INPATIENT Admit to: Med Surg Condition: Serious Critical Care Note Critical Care Time?: No Stability Stability form required: No Heart Score Heart Score: Heart Score Response (Comments) Value History N/A 0 EKG N/A 0 Age N/A 0 Risk Factors N/A 0 Troponin N/A 0 Total 0 I personally scribed for ARMANDO MADISON MD ([email or web address]) on 10/08/24 at 13:36. Electronically submitted by Juan F Herrmann [email or web address]). ARMANDO MADISON MD Oct 08, 2024 13:36
[2024-10-08 14:18] LABS: Basophils # (auto) 0.1 10 ^3/uL (0-0.2); Basophils % (auto) 1.2 % (0.0-2.0); Eosinophils # (auto) 0.1 10 ^3/uL (0-0.8); Eosinophils % (auto) 1.3 % (0.0-7.0); Hematocrit 46.9 % (41.0-53.0); Hemoglobin 15.7 g/dL (13.5-17.5); Lymphocytes # (auto) 1.8 10 ^3/uL (0.4-5.4); Lymphocytes % (auto) 16.2 % (10.0-50.0); Mean Corpuscular Hemoglobin 32.3 pg (28.0-32.0); Mean Corpuscular Hgb Conc. 33.6 g/dL (32.0-36.0); Mean Corpuscular Volume 96.4 fL (80.0-100.0); Monocytes # (auto) 1.2 10 ^3/uL (0-1.3); Monocytes % (auto) 10.9 % (0.0-12.0); Neutrophils # (auto) 7.8 10 ^3/uL (1.6-8.6); Neutrophils % (auto) 70.4 % (37.0-80.0); Nucleated Red Blood Cells % 0.1 %; Platelet Count (auto) 394 10^3/uL (140-450); Red Blood Cells 4.87 10^6/uL (4.5-5.90); Red Cell Distribution Width 14.5 % (11.8-14.3); White Blood Cell 11.1 10^3/uL (4.4-10.8)
[2024-10-08 14:31] LABS: Alkaline Phosphatase 58 U/L (46-116); Anion Gap 8 (5-15); BUN/Creatinine Ratio 13.3 (10.0-20.0); Blood Urea Nitrogen 12 mg/dL (9-23); Carbon Dioxide 24 mmol/L (20-31); Glucose 91 mg/dL (74-106); Potassium 4.5 mmol/L (3.5-5.1); Sodium 140 mmol/L (136-145)
[2024-10-08 14:32] LABS: Bilirubin, Total 0.3 mg/dL (0.2-1.0); Total Protein 7.5 g/dL (5.7-8.2)
[2024-10-08 14:43] LABS: Alanine Aminotransferase 96 U/L (7-40); Albumin 4.8 g/dL (3.2-4.8); Aspartate Aminotransferase 50 U/L (13-40); Calcium 10.5 mg/dL (8.7-10.4); Chloride 108 mmol/L (98-107)
[2024-10-08 16:00] VITALS: PULSE 106; RESP 20; O2SAT 97
[2024-10-08] MEDS: SODIUM CHLORIDE 0.9% 1,000 ML IV ONE (16:02)
[2024-10-08] MEDS: ONDANSETRON HCL 4 MG/2 ML VIAL IV ONE (16:03)
[2024-10-08] MEDS: MORPHINE SULFATE 4 MG/ML SYR/VIAL IV ONE (16:05)
[2024-10-08] MEDS: IOHEXOL 300 MG/ML 100ML BOTTLE IJ ONE (16:07)
--- NOTE | 2024-10-08 16:59 | DVH ---
Exam: CT CT AB PEL WITH IV CON ONLY History: WORSENING PAIN AND SWELLING TO LEFT INGUINAL HERNIA REPAIR TECHNIQUE: A digital hospital manager image was obtained. During the uneventful, intravenous administration of c ontrast material, multislice data acquisition was obtained through the abdomen and pelvis. The data s et was subsequently reconstructed into axial images. Images were reviewed on a work station using a c ombination of axial and multiplanar using a variety of window levels and settings. 100 cc of Omnipaqu e 300 contrast was injected intravenously. All CT scans at this medical facility are performed using dose modulation techniques as appropriate t o a performed exam including the following:Automated exposure control was utilized; adjustment of the MA and/or KV according to patient size; and use of iterative reconstruction technique. Radiation Dose Information: CT Dose: CTDI volume is 10.3 mGy. Dose-length product is 540 mGy*cm Comparison: CT CT AB PEL WO CON-NO ORAL OR IV on DOS: 10/01/24, CT CT AB PEL WO CON-NO ORAL OR IV on DOS: 09/23/24 FINDINGS: Theliver, gallbladder, pancreas, kidneys, adrenal glands, and spleen appear within normal limits. There is no evidence of abdominal lymphadenopathy. There is no free fluid or free air. The stomach grossly appears unremarkable. The small and large bowel loops demonstrate normal caliber. The abdominal aorta and IVC appear within normal limits. The bladder appears within normal limits the degree of distention. Pelvic organs is unremarkable. Th ere is no evidence of a pelvic mass or lymphadenopathy. There is no free fluid collection. Again seen is a left inguinal hernia. There is no fluid seen within the hernia. There is hazy appeara nce of the herniating fat. There is also surrounding fat stranding. Lung bases are clear. There is no acute osseous abnormality. IMPRESSION: 1. There is redemonstration of the left inguinal hernia which now contains fluid and hazy appearing h erniating fat.. There is also surrounding fat stranding. Findings May relate to complications from padron rgery. Clinical correlation is recommended. HS:Y
--- NOTE | 2024-10-08 22:32 | DVHINCON2 ---
BINA PRESLEY TIPPLE OPERATOR 10/08/24 2232: Date of service: Oct 08, [address] Pink Reason for Consultation Medical management History of Present Illness 59 year-old male with medical history of alcohol abuse, TBI, seizures presents with complaints of abdominal pain to the left lower abdomen. Patient recently underwent left inguinal hernia repair on October 02, 2024. There are no complaints of trauma or strenuous activity. No incision dehiscence reported. Patient denies fevers, chills, Shortness of breath, chest pain, nausea, vomiting, hematemesis, hematochezia, melena. Past Medical History Seizures, TBI, alcohol Dependence Past Surgical History Hernia repair 10-02-24. TBI with metal plate in skull Family History: FH: myocardial infarction G8 FATHER Family history: Cardiovascular disease G8 FATHER Allergies: Coded Allergies: Caffeine (Verified Allergy, Severe, 09/13/11) Phenacetin (Verified Allergy, Severe, 09/13/11) Aspirin (Unverified Allergy, Unknown, 04/30/14) Home Meds Active Scripts Diphenoxylate W/ Atropine (Lomotil) 2.5 Mg Tab, 1 TAB PO TID, #30 TAB Prov:SIRIA MOREAU MD 09/23/24 Ibuprofen (Ibuprofen) 800 Mg Tab, 1 TAB PO TID PRN for 5 Days, #15 TAB 1 Refill Prov:ELIZA ARREOLA 08/30/24 Gabapentin (Gabapentin) 300 Mg Cap, 1 CAP PO TID, #30 CAP Prov:CRISTIAN KAUR MD 07/13/24 Dicyclomine Hcl (BENTYL CAPSULE) 10 Mg Cp, 2 CAP PO TID, #30 CAP abdominal cramping Prov:CRISTIAN KAUR MD 07/13/24 Pantoprazole Sodium Sesquihydr (Pantoprazole Sodium Dr) 40 Mg Tab, 40 MG PO DAILY, #60 TAB Prov:CRISTIAN KAUR MD 07/13/24 Albuterol Sulfate (Albuterol Sulfate Hfa) 108 Mcg/Act Aer, 108 MCG IN Q4HPRN PRN, #1 AER Prov:RUSTY PADILLA 02/24/24 Ondansetron Odt 4MG Tab (ZOFRAN PO) 4 Mg Tb, 4 MG PO Q6HP PRN, #20 TAB ODT TAB-DISSOLVE IN MOUTH, THEN SWALLOW Prov:MELINA DEWEY PAC 07/14/23 Celecoxib (Celebrex) 100 Mg Cap, 100 MG PO DAILY PRN, #14 MG Prov:CESAR SUMMERS N.P. 11/18/13 Cyclobenzaprine Hcl (FLEXERIL) 10 Mg Tab, 10 MG PO TID PRN, #20 TAB Prov:CESAR SUMMERS N.P. 11/18/13 Reported Medications Acetaminophen (Acetaminophen) 325 Mg Tab, 325 MG PO Q4HP PRN for MILD PAIN for 30 Days, MG 0 Refills 09/27/24 Atorvastatin Calcium (Lipitor) 40 Mg Tab, 1 TAB PO DAILY, #30 TAB 5 Refills 09/27/24 Hydrocodone-Acetaminophen (Hydrocodone/Acetaminophen) 1 Tab Tab, #30 08/26/13 Divalproex Sodium (Depakote Er) 500 Mg Tab 02/23/10 Review of Systems 10 systems reviewed and negative Except as per HPI Vital Signs Vital Signs Date Time Temp Pulse Resp B/P (MAP) Pulse Ox O2 Delivery O2 Flow Rate FiO2 10/08/24 20:30 97.9 93 16 151/79 (103) 83 97.9 10/08/24 16:00 Room Air* 0 21 Physical Exam GENERAL: Patient appearing stated age, in no acute distress. HEENT: Pupils equal and reactive to light and accommodation. Extraocular muscles intact. Mucous membranes moist. Conjunctivae pink. Anicteric sclerae. LUNGS: Bilateral air entry. No wheezes, rhonchi or rales. HEART: Regular rate and rhythm. Normal S1 and S2. ABDOMEN: BS normoactive, soft, nontender, and nondistended. No CVA tenderness. EXTREMITIES: No clubbing, cyanosis, edema. No calf tenderness. Pedal pulses 2+. NEUROLOGICAL: The patient is alert and oriented times 3. CN II-XII intact. No focal deficits on gross sensory or motor examination. Labs/Diagnostic Data Labs Test 10/08/24 13:48 Range/Units White Blood Count 11.1 #H 4.4-10.8 10^3/uL Red Blood Count 4.87 4.5-5.90 10^6/uL Hemoglobin 15.7 13.5-17.5 g/dL Hematocrit 46.9 41.0-53.0 % Mean Corpuscular Volume 96.4 80.0-100.0 fL Mean Corpuscular Hemoglobin 32.3 H 28.0-32.0 pg Mean Corpuscular Hemoglobin Concent 33.6 32.0-36.0 g/dL Red Cell Distribution Width 14.5 H 11.8-14.3 % Platelet Count 394 # 140-450 10^3/uL Mean Platelet Volume 7.4 6.9-10.8 fL Neutrophils (%) (Auto) 70.4 37.0-80.0 % Lymphocytes (%) (Auto) 16.2 10.0-50.0 % Monocytes (%) (Auto) 10.9 0.0-12.0 % Eosinophils (%) (Auto) 1.3 0.0-7.0 % Basophils (%) (Auto) 1.2 0.0-2.0 % Neutrophils # (Auto) 7.8 1.6-8.6 10 ^3/uL Lymphocytes # (Auto) 1.8 0.4-5.4 10 ^3/uL Monocytes # (Auto) 1.2 0-1.3 10 ^3/uL Eosinophils # (Auto) 0.1 0-0.8 10 ^3/uL Basophils # (Auto) 0.1 0-0.2 10 ^3/uL Nucleated Red Blood Cells 0.1 % Sodium Level 140 136-145 mmol/L Potassium Level 4.5 3.5-5.1 mmol/L Chloride Level 108 H 98-107 mmol/L Carbon Dioxide Level 24 20-31 mmol/L Anion Gap 8 5-15 Blood Urea Nitrogen 12 9-23 mg/dL Creatinine 0.90 0.700-1.30 mg/dL Glomerular Filtration Rate Calc 100 >90 mL/min BUN/Creatinine Ratio 13.3 10.0-20.0 Serum Glucose 91 74-106 mg/dL Calcium Level 10.5 H 8.7-10.4 mg/dL Total Bilirubin 0.3 0.2-1.0 mg/dL Aspartate Amino Transferase (AST) 50 H 13-40 U/L Alanine Aminotransferase (ALT) 96 H 7-40 U/L Alkaline Phosphatase 58 46-116 U/L Total Protein 7.5 5.7-8.2 g/dL Albumin 4.8 3.2-4.8 g/dL Assessment Abdominal pain s/p hernia repair Plan/Recommendation Patient case and CT impression discussed with [facility] on-call surgical team, Dr. Courtney. States changes may be relative to post-surgical changes. There's no bowel obstruction present. Patient may follow up outpatient with general surgeon Dr Petty. [facility] [place] consulted to facilitate follow up appointment with general surgeon. Home health set up for home safety evaluation. Patient case and findings discussed with supervising physician Dr. Rodriguez, who agrees with plan of care. Patient was provided with strict ER precautions including but not limited to dizziness, shortness of breath, chest pain, nausea, vomiting, hematemesis, hematochezia, melena. Plan discussed with: Patient CRISTIAN KAUR MD 10/11/24 1635: Family History: FH: myocardial infarction G8 FATHER Family history: Cardiovascular disease G8 FATHER Allergies: Coded Allergies: Caffeine (Verified Allergy, Severe, 09/13/11) Phenacetin (Verified Allergy, Severe, 09/13/11) Aspirin (Unverified Allergy, Unknown, 04/30/14) Home Meds Active Scripts Diphenoxylate W/ Atropine (Lomotil) 2.5 Mg Tab, 1 TAB PO TID, #30 TAB Prov:SIRIA MOREAU MD 09/23/24 Ibuprofen (Ibuprofen) 800 Mg Tab, 1 TAB PO TID PRN for 5 Days, #15 TAB 1 Refill Prov:ELIZA ARREOLA 08/30/24 Gabapentin (Gabapentin) 300 Mg Cap, 1 CAP PO TID, #30 CAP Prov:CRISTIAN KAUR MD 07/13/24 Dicyclomine Hcl (BENTYL CAPSULE) 10 Mg Cp, 2 CAP PO TID, #30 CAP abdominal cramping Prov:CRISTIAN KAUR MD 07/13/24 Pantoprazole Sodium Sesquihydr (Pantoprazole Sodium Dr) 40 Mg Tab, 40 MG PO DAILY, #60 TAB Prov:CRISTIAN KAUR MD 07/13/24 Albuterol Sulfate (Albuterol Sulfate Hfa) 108 Mcg/Act Aer, 108 MCG IN Q4HPRN PRN, #1 AER Prov:RUSTY PADILLA PAC 02/24/24 Ondansetron Odt 4MG Tab (ZOFRAN PO) 4 Mg Tb, 4 MG PO Q6HP PRN, #20 TAB ODT TAB-DISSOLVE IN MOUTH, THEN SWALLOW Prov:MELINA DEWEY PAC 07/14/23 Celecoxib (Celebrex) 100 Mg Cap, 100 MG PO DAILY PRN, #14 MG Prov:CESAR SUMMERS N.P. 11/18/13 Cyclobenzaprine Hcl (FLEXERIL) 10 Mg Tab, 10 MG PO TID PRN, #20 TAB Prov:CESAR SUMMERS N.P. 11/18/13 Reported Medications Acetaminophen (Acetaminophen) 325 Mg Tab, 325 MG PO Q4HP PRN for MILD PAIN for 30 Days, MG 0 Refills 09/27/24 Atorvastatin Calcium (Lipitor) 40 Mg Tab, 1 TAB PO DAILY, #30 TAB 5 Refills 09/27/24 Hydrocodone-Acetaminophen (Hydrocodone/Acetaminophen) 1 Tab Tab, #30 08/26/13 Divalproex Sodium (Depakote Er) 500 Mg Tab 02/23/10 Additional Comments Additional Comments Additional Comments Patient's chart is reviewed and discussed with the nurse practitioner. Patient is seen and evaluated by nurse practitioner in the ER. I agree with the nurse practitioner's evaluation, documentation, assessment and care plan as outlined. BINA PRESLEY NP Oct 08, 2024 22:32 CRISTIAN KAUR MD Oct 11, 2024 16:35
[2024-10-08] MEDS: HYDROcodone-ACET 7.5/325MG TAB PO ONE (22:45)
[2024-10-09 00:30] VITALS: BP 123/90; PULSE 98; RESP 16; TEMP 97.5; O2SAT 95
== END 2024-10-09 00:51 | disposition home or self-care (01) ==
LOC: ER 13:20 → EDBD 13:20 → ER 10-09 00:51
DX: K40.90 Unilateral inguinal hernia, without obstruction or gangrene, not specified as recurrent (principal); E78.5 Hyperlipidemia, unspecified; F17.210 Nicotine dependence, cigarettes, uncomplicated; I10 Essential (primary) hypertension; K59.00 Constipation, unspecified; Z79.899 Other long term (current) drug therapy; Z86.73 Personal history of transient ischemic attack (TIA), and cerebral infarction without residual deficits; Z87.11 Personal history of peptic ulcer disease; Z88.6 Allergy status to analgesic agent; Z98.890 Other specified postprocedural states
CPT/HCPCS: 36415; 74177; 80053; 85025; 96361; 96374; 96375; 99285; J2270; J2405; J7030; Q9967

== ENCOUNTER 2024-10-11 16:38 | Emergency (ER) | payer OTHER, MEDICAID ==
[~2024-10-11] VITALS: Ht 180.3 cm; Wt 90.0 kg
[2024-10-11] MEDS: ONDANSETRON HCL 4 MG/2 ML VIAL IV ONE (16:45)
[2024-10-11] MEDS ORDERED: MORPHINE SULFATE 4 MG/ML SYR/VIAL IV ONE (16:45)
--- NOTE | 2024-10-11 16:55 | ED.PDOC ---
GI ASSESSMENT HPI Comments 59 y.o male presents to the ED via EMS for a chief complaint of left lower quadrant/groin pain. Patient is a poor historian, unable to specify when pain presented but does state recent inguinal hernia repair on 10/02/24 which is where he pinpoints the pain. Patient is unable to specify any associating symptoms. Patient is homeless per EMS. Time Seen by MD: 16:41 Primary Care Provider: SOHEILA Reviewed Notes: Nurses Notes, Manager Process Excellence Notes, Medications, Allergies Allergies: Coded Allergies: Caffeine (Verified Allergy, Severe, 09/13/11) Phenacetin (Verified Allergy, Severe, 09/13/11) Aspirin (Unverified Allergy, Unknown, 04/30/14) Home Meds Active Scripts Diphenoxylate W/ Atropine (Lomotil) 2.5 Mg Tab, 1 TAB PO TID, #30 TAB Prov:SIRIA MOREAU MD 09/23/24 Ibuprofen (Ibuprofen) 800 Mg Tab, 1 TAB PO TID PRN for 5 Days, #15 TAB 1 Refill Prov:ELIZA ARREOLA SEXUAL ABUSE COUNSELLOR 08/30/24 Gabapentin (Gabapentin) 300 Mg Cap, 1 CAP PO TID, #30 CAP Prov:CRISTIAN KAUR MD 07/13/24 Dicyclomine Hcl (BENTYL CAPSULE) 10 Mg Cp, 2 CAP PO TID, #30 CAP abdominal cramping Prov:CRISTIAN KAUR MD 07/13/24 Pantoprazole Sodium Sesquihydr (Pantoprazole Sodium Dr) 40 Mg Tab, 40 MG PO DAILY, #60 TAB Prov:CRISTIAN KAUR MD 07/13/24 Albuterol Sulfate (Albuterol Sulfate Hfa) 108 Mcg/Act Aer, 108 MCG IN Q4HPRN PRN, #1 AER Prov:RUSTY PADILLA PAC 02/24/24 Ondansetron Odt 4MG Tab (ZOFRAN PO) 4 Mg Tb, 4 MG PO Q6HP PRN, #20 TAB ODT TAB-DISSOLVE IN MOUTH, THEN SWALLOW Prov:MELINA DEWEY PAC 07/14/23 Celecoxib (Celebrex) 100 Mg Cap, 100 MG PO DAILY PRN, #14 MG Prov:CESAR SUMMERS N.P. 11/18/13 Cyclobenzaprine Hcl (FLEXERIL) 10 Mg Tab, 10 MG PO TID PRN, #20 TAB Prov:CESAR SUMMERS N.Nasreen 11/18/13 Reported Medications Acetaminophen (Acetaminophen) 325 Mg Tab, 325 MG PO Q4HP PRN for MILD PAIN for 30 Days, MG 0 Refills 09/27/24 Atorvastatin Calcium (Lipitor) 40 Mg Tab, 1 TAB PO DAILY, #30 TAB 5 Refills 09/27/24 Hydrocodone-Acetaminophen (Hydrocodone/Acetaminophen) 1 Tab Tab, #30 08/26/13 Divalproex Sodium (Depakote Er) 500 Mg Tab 02/23/10 Information Source: Patient, Emergency Med Personnel Mode of Arrival: EMS Timing: Days Duration: Since onset Quality: Sharp Vomitus: Other Stool: Other Severity: Other Recent: Other Recent Hx of: None Pain Location: LLQ Modifying Factors: Nothing Associated sign and symptoms: Abdominal Pain Past Medical History PAST MEDICAL HISTORY: CVA, High Lipids, HTN, PUD, Seizures Surgical History: Hernia Repair Family History Family History: Reviewed,noncontributory to illness, Family hx of heart harshad Social History Smoker: Cigarettes Alcohol: Occasionally Drugs: Denies Drug Use Lives In: Home Constitutional: denies: chills, diaphoresis, fatigue, fever, malaise, sweats, weakness, others EENTM: denies: blurred vision, double vision, ear bleeding, ear discharge, ear drainage, ear pain, ear ringing, eye pain, eye redness, hearing loss, mouth pain, mouth swelling, nasal discharge, nose bleeding, nose congestion, nose pain, photophobia, tearing, throat pain, throat swelling, voice changes, others Respiratory: denies: cough, hemoptysis, orthopnea, SOB at rest, shortness of breath, SOB with excertion, stridor, wheezing, others Cardiovascular: denies: chest pain, dizzy spells, diaphoresis, Dyspnea on exertion, edema, irregular heart beat, left arm pain, lightheadedness, palpitations, PND, syncope, others Gastrointestinal: reports: abdominal pain; denies: abdomen distended, blood streaked bowels, constipated, diarrhea, dysphagia, difficulty swallowing, hematemesis, melena, nausea, poor appetite, poor fluid intake, rectal bleeding, rectal pain, vomiting, others Genitourinary: denies: burning, dysuria, flank pain, frequency, hematuria, incontinence, penile discharge, penile sore, pain, testicle pain, testicle swelling, urgency, others Neurological: denies: dizziness, fainting, headache, left sided numbness, left sided weakness, numbness, paresthesia, pre-existing deficit, right sided numbness, right sided weakness, seizure, speech problems, tingling, tremors, weakness, others Musculoskeletal: denies: back pain, gout, joint pain, joint swelling, muscle pain, muscle stiffness, neck pain, others Integumetry: denies: bruises, change in color, change in hair/nails, dryness, laceration, lesions, lumps, rash, wounds, others Allergic/Immunocompromised: denies: Difficulty Healing, Frequent Infections, Hives, Itching, others Hematologic/Lymphatic: denies: anemia, blood clots, easy bleeding, easy bruising, swollen glands, others Endocrine: denies: excessive hunger, excessive sweating, excessive thirst, excessive urination, flushing, intolerance to cold, intolerance to heat, unexplained weight gain, unexplained weight loss, others Psychiatric: denies: anxiety, bipolar disorder, depression, hopeless, panic disorder, schizophrenia, sleepless, suicidal, others All Other Systems: Reviewed and Negative Physical Exam General Appearance: Mild Distress, Normal HEENT: Normal ENT Inspection, Pharynx Normal, TMs Normal Neck: Full Range of Motion, Non-Tender, Normal, Normal Inspection Respiratory: Chest Non-Tender, Lungs Clear, No Accessory Muscle Use, No Respiratory Distress, Normal Breath Sounds Cardiovascular: No Edema, No JVD, No Murmur, No Gallop, Normal Peripheral Pulses, Regular Rate/Rhythm Breast Exam: Deferred Gastrointestinal: No Organomegaly, No Pulsatile Mass, Normal Bowel Sounds, Soft, Other (left inguinal hernia) Genitalia: Deferred Pelvic: Deferred Rectal: Deferred Extremities: No calf tenderness, Normal capillary refill, Normal inspection, Normal range of motion, Non-tender, No pedal edema Musculoskeletal : Apperance: Normal Neurologic: Alert, beach attendant II-XII nml as Tested, No Motor Deficits, Normal Affect, Normal Mood, No Sensory Deficits Cerebellar Function: Normal Reflexes: Normal Skin: Dry, Normal Color, Warm Lymphatic: No Adenopathy Was a procedure done? Was a procedure done?: No GI differential Dx Differential Diagnosis: Hernia, Inflammatory BD, Trauma intraabdominal X-Ray, Labs, Meds, VS Vital Signs Date Time Temp Pulse Resp B/P (MAP) Pulse Ox O2 Delivery O2 Flow Rate FiO2 10/11/24 20:01 98.6 74 16 149/62 (91) 95 98.6 10/11/24 20:00 74 16 149/62 10/11/24 19:03 60 20 120/87 (98) 95 10/11/24 19:03 60 20 95 Room Air 10/11/24 18:59 60 20 120/87 10/11/24 16:57 97.9 90 20 136/90 (105) 95 Lab Test 10/11/24 18:23 10/11/24 17:29 Range/Units Urine Color Colorless Yellow Urine Clarity Clear Clear Urine pH 6.5 5.0-9.0 Urine Specific [place] 1.003 1.001-1.035 Urine Protein Negative Negative Urine Ketones Negative Negative Urine Blood Negative Negative /uL Urine Nitrite Negative Negative Urine Bilirubin Negative Negative Urine Urobilinogen Normal Negative mg/dL Urine Leukocyte Esterase Negative Negative /uL Urine RBC None seen 0 - 3 /hpf Urine WBC <1 0 - 3 /hpf Urine Squamous Epithelial Cells None seen <5 /hpf Urine Bacteria None seen None Seen /hpf Urine Glucose Normal Normal mg/dL White Blood Count 10.9 H 4.4-10.8 10^3/uL Red Blood Count 4.64 4.5-5.90 10^6/uL Hemoglobin 15.2 13.5-17.5 g/dL Hematocrit 45.0 41.0-53.0 % Mean Corpuscular Volume 96.9 80.0-100.0 fL Mean Corpuscular Hemoglobin 32.7 H 28.0-32.0 pg Mean Corpuscular Hemoglobin Concent 33.8 32.0-36.0 g/dL Red Cell Distribution Width 14.1 11.8-14.3 % Platelet Count 408 140-450 10^3/uL Mean Platelet Volume 7.1 6.9-10.8 fL Neutrophils (%) (Auto) 62.2 37.0-80.0 % Lymphocytes (%) (Auto) 21.1 10.0-50.0 % Monocytes (%) (Auto) 13.5 H 0.0-12.0 % Eosinophils (%) (Auto) 2.3 0.0-7.0 % Basophils (%) (Auto) 0.9 0.0-2.0 % Neutrophils # (Auto) 6.7 1.6-8.6 10 ^3/uL Lymphocytes # (Auto) 2.3 0.4-5.4 10 ^3/uL Monocytes # (Auto) 1.5 H 0-1.3 10 ^3/uL Eosinophils # (Auto) 0.3 0-0.8 10 ^3/uL Basophils # (Auto) 0.1 0-0.2 10 ^3/uL Nucleated Red Blood Cells 0.0 % Sodium Level 139 136-145 mmol/L Potassium Level 3.7 3.5-5.1 mmol/L Chloride Level 107 98-107 mmol/L Carbon Dioxide Level 24 20-31 mmol/L Anion Gap 8 5-15 Blood Urea Nitrogen 8 L 9-23 mg/dL Creatinine 0.85 0.700-1.30 mg/dL Glomerular Filtration Rate Calc 101 >90 mL/min BUN/Creatinine Ratio 9.4 L 10.0-20.0 Serum Glucose 86 74-106 mg/dL Calcium Level 9.9 8.7-10.4 mg/dL Current Medications Medications (Trade) Dose Ordered Sig/Yareli Route Start Time Stop Time Status Last Admin Hydromorphone HCl (Dilaudid Injection) 1 mg ONCE ONCE IV 10/11/24 19:00 10/11/24 19:01 DC 10/11/24 18:59 Time of 1ST Reevaluation: 16:55 Reevaluation 1ST: Unchanged Time of 2ND Reevaluation: 23:53 Reevaluation 2ND: Improved Patient Education/Counseling: Diagnosis, Treatment Family Education/Counseling: No Family Present Departure 1 Departure Time of Disposition: 23:53 (Patient has persistent left inguinal hernia, no evidence of incarceration, shared decision making will follow up with PCP and Gen Surgery) Impression: Primary Impression: Left inguinal hernia Disposition: 01 HOME / SELF CARE / HOMELESS Condition: Stable Discharged With: Self Critical Care Note Critical Care Time?: No Stability Stability form required: No I personally scribed for MELINA DEWEY PAC ([email or web address]) on 10/11/24 at 16:55. Electronically submitted by Arin Garcia ([facility]). MELINA DEWEY PAC Oct 11, 2024 16:55 LINNEA SHAH MD Oct 11, 2024 23:55
[2024-10-11 17:57] LABS: Basophils # (auto) 0.1 10 ^3/uL (0-0.2); Basophils % (auto) 0.9 % (0.0-2.0); Eosinophils # (auto) 0.3 10 ^3/uL (0-0.8); Eosinophils % (auto) 2.3 % (0.0-7.0); Hemoglobin 15.2 g/dL (13.5-17.5); Lymphocytes # (auto) 2.3 10 ^3/uL (0.4-5.4); Lymphocytes % (auto) 21.1 % (10.0-50.0); Mean Corpuscular Hemoglobin 32.7 pg (28.0-32.0); Mean Corpuscular Hgb Conc. 33.8 g/dL (32.0-36.0); Mean Corpuscular Volume 96.9 fL (80.0-100.0); Monocytes # (auto) 1.5 10 ^3/uL (0-1.3); Monocytes % (auto) 13.5 % (0.0-12.0); Neutrophils # (auto) 6.7 10 ^3/uL (1.6-8.6); Neutrophils % (auto) 62.2 % (37.0-80.0); Platelet Count (auto) 408 10^3/uL (140-450); Red Blood Cells 4.64 10^6/uL (4.5-5.90); Red Cell Distribution Width 14.1 % (11.8-14.3); White Blood Cell 10.9 10^3/uL (4.4-10.8)
[2024-10-11 18:08] LABS: Potassium 3.7 mmol/L (3.5-5.1); Sodium 139 mmol/L (136-145)
[2024-10-11 18:09] LABS: Anion Gap 8 (5-15); Calcium 9.9 mg/dL (8.7-10.4); Carbon Dioxide 24 mmol/L (20-31)
[2024-10-11 18:14] LABS: BUN/Creatinine Ratio 9.4 (10.0-20.0); Glucose 86 mg/dL (74-106)
[2024-10-11 18:21] LABS: Blood Urea Nitrogen 8 mg/dL (9-23); Chloride 107 mmol/L (98-107)
--- NOTE | 2024-10-11 18:34 | DVH ---
Exam: CT CT AB PEL WO CON-NO ORAL OR IV History: hernia Comparison Study: None available at time of dictation. TECHNIQUE: Multidetector CT of the abdomen was performed from lung bases to pubic symphysis. Imaging was performed without IV contrast. Axial, coronal and sagittal multiplanar reformats were obtained fr om the axial data set by the technologist. Radiation Dose Information: CT Dose: CTDI volume is 7.61 mGy. Dose-length product is 435.35 mGy*cm FINDINGS: Evaluation of solid organs is limited due to lack of intravenous contrast use. Findings: Lung Bases: No acute or significant lung base finding. Normal heart size. No pleural or pericardial effusion. Liver: The liver is normal in size. No focal lesions. Gallbladder and Biliary Tree: Unremarkable Spleen: Unremarkable Pancreas: The pancreas is grossly normal in appearance. Adrenal Glands: Unremarkable Kidneys: Kidneys are grossly normal without calculi or hydronephrosis. Bladder: Grossly unremarkable for degree of distention. Bowel: The stomach is grossly normal in appearance. Small bowel and colon are normal in caliber and d istribution. The appendix is not visualized; however, no secondary findings of acute appendicitis id entified. Ascites: Absent Lymphadenopathy: No mesenteric, retroperitoneal or periportal lymphadenopathy. Abdominal Wall and Mesentery: 3.6 cm left inguinal hernia containing fat and mesenteric tissue. Vasculature: The visualized abdominal aorta is normal in size and caliber. Evaluation of abdominal a nd pelvic vessels is limited due to lack of intravenous contrast. Pelvic Organs: Unremarkable Musculoskeletal: No aggressive focal bony lesions, acute fractures or dislocation. Soft tissues: Unremarkable IMPRESSION: 1. 3.6 x 7.5 cm left inguinal hernia containing mesenteric fat and tissue and bowel. HS:Y Radiation optimization: All CT scans at this facility use at least one of these dose optimization maggie hniques: automated exposure control mA and/or kV adjustment per patient size (includes targeted exam s where dose is matched to clinical indication) or iterative reconstruction.
[2024-10-11 18:36] LABS: Urine Bacteria None Seen /hpf (None Seen)
[2024-10-11 18:42] LABS: Urine Blood Negative /uL (Negative); Urine Clarity Clear (Clear); Urine Color Colorless (Yellow); Urine Protein, UAD Negative (Negative); Urine Specific Gravity 1.003 (1.001-1.035); Urine Urobilinogen Normal (Negative); Urine WBC <1 /hpf (0 - 3); Urine pH 6.5 (5.0-9.0)
[2024-10-11] MEDS: HYDROmorphone HCL 2 MG/ML VL/or syr IV ONE (18:59)
[2024-10-11 20:01] VITALS: BP 149/62; PULSE 74; RESP 16; TEMP 98.6; O2SAT 95
== END 2024-10-12 00:26 | disposition home or self-care (01) ==
LOC: EDBD 16:38 → ER 16:38
DX: K40.90 Unilateral inguinal hernia, without obstruction or gangrene, not specified as recurrent (principal); I10 Essential (primary) hypertension; F17.210 Nicotine dependence, cigarettes, uncomplicated; Z59.00 Homelessness unspecified; Z79.899 Other long term (current) drug therapy; Z86.73 Personal history of transient ischemic attack (TIA), and cerebral infarction without residual deficits; Z87.11 Personal history of peptic ulcer disease; Z88.6 Allergy status to analgesic agent; Z98.890 Other specified postprocedural states
CPT/HCPCS: 36415; 74176; 80048; 81001; 85025; 96374; 99285; J1171; J2405

== ENCOUNTER 2024-10-14 12:34 | Emergency (ER) | payer OTHER, MEDICAID ==
[~2024-10-14] VITALS: Ht 190.5 cm; Wt 88.5 kg
--- NOTE | 2024-10-14 14:49 | ED.PDOC ---
General HPI Comments 59 yr. male presents for Ab pain. Sent from Dr. Petty office. Had f/u apt for his surgery from 10/02 had hernia repair by dr. Petty Also seen at [facility] yesterday and CT ab pelvis shows post surgical changes of left inguinal hernia repair with small fluid denies f/c/n/v/d Chief Complaint: Pelvic Pain Time Seen by MD: 13:27 Primary Care Provider: UNKNOWN Reviewed notes: Nurses Notes, Medications, Allergies Allergies: Coded Allergies: Caffeine (Verified Allergy, Severe, 09/13/11) Phenacetin (Verified Allergy, Severe, 09/13/11) Aspirin (Unverified Allergy, Unknown, 04/30/14) Home Meds Active Scripts Diphenoxylate W/ Atropine (Lomotil) 2.5 Mg Tab, 1 TAB PO TID, #30 TAB Prov:SIRIA MOREAU MD 09/23/24 Ibuprofen (Ibuprofen) 800 Mg Tab, 1 TAB PO TID PRN for 5 Days, #15 TAB 1 Refill Prov:ELIZA ARREOLA DIAMOND SETTER 08/30/24 Gabapentin (Gabapentin) 300 Mg Cap, 1 CAP PO TID, #30 CAP Prov:CRISTIAN KAUR MD 07/13/24 Dicyclomine Hcl (BENTYL CAPSULE) 10 Mg Cp, 2 CAP PO TID, #30 CAP abdominal cramping Prov:CRISTIAN KAUR MD 07/13/24 Pantoprazole Sodium Sesquihydr (Pantoprazole Sodium Dr) 40 Mg Tab, 40 MG PO DAILY, #60 TAB Prov:CRISTIAN KAUR MD 07/13/24 Albuterol Sulfate (Albuterol Sulfate Hfa) 108 Mcg/Act Aer, 108 MCG IN Q4HPRN PRN, #1 AER Prov:RUSTY PADILLA PAC 02/24/24 Ondansetron Odt 4MG Tab (ZOFRAN PO) 4 Mg Tb, 4 MG PO Q6HP PRN, #20 TAB ODT TAB-DISSOLVE IN MOUTH, THEN SWALLOW Prov:MELINA DEWEY PAC 07/14/23 Celecoxib (Celebrex) 100 Mg Cap, 100 MG PO DAILY PRN, #14 MG Prov:CESAR SUMMERS N.P. 11/18/13 Cyclobenzaprine Hcl (FLEXERIL) 10 Mg Tab, 10 MG PO TID PRN, #20 TAB Prov:CESAR SUMMERS N.P. 11/18/13 Reported Medications Acetaminophen (Acetaminophen) 325 Mg Tab, 325 MG PO Q4HP PRN for MILD PAIN for 30 Days, MG 0 Refills 09/27/24 Atorvastatin Calcium (Lipitor) 40 Mg Tab, 1 TAB PO DAILY, #30 TAB 5 Refills 09/27/24 Hydrocodone-Acetaminophen (Hydrocodone/Acetaminophen) 1 Tab Tab, #30 08/26/13 Divalproex Sodium (Depakote Er) 500 Mg Tab 02/23/10 Information Source: Patient Mode of Arrival: Ambulatory Past Medical History PAST MEDICAL HISTORY: CVA, High Lipids, HTN, PUD, Seizures Surgical History: Hernia Repair Family History Family History: Reviewed,noncontributory to illness, Family hx of heart harshad Social History Smoker: Cigarettes Alcohol: Occasionally Drugs: Denies Drug Use Lives In: Home All Other Systems: Reviewed and Negative (per hpi) Physical Exam General Appearance: No Apparent Distress, Normal HEENT: Normal ENT Inspection, Pharynx Normal, TMs Normal Neck: Full Range of Motion, Non-Tender, Normal, Normal Inspection Respiratory: Chest Non-Tender, Lungs Clear, No Accessory Muscle Use, No Respiratory Distress, Normal Breath Sounds Cardiovascular: No Edema, No JVD, No Murmur, No Gallop, Normal Peripheral Pulses, Regular Rate/Rhythm Breast Exam: Deferred Gastrointestinal: No Organomegaly, Non Tender, No Pulsatile Mass, Normal Bowel Sounds, Soft Genitalia: Deferred Pelvic: Deferred Rectal: Deferred Extremities: No calf tenderness, Normal capillary refill, Normal inspection, Normal range of motion, Non-tender, No pedal edema Musculoskeletal : Apperance: Normal Neurologic: Alert, cupola tapper II-XII nml as Tested, No Motor Deficits, Normal Affect, Normal Mood, No Sensory Deficits Cerebellar Function: Normal Reflexes: Normal Skin: Dry, Normal Color, Warm Lymphatic: No Adenopathy Was a procedure done? Was a procedure done?: No Images 1 - Incision site appears to be healing well. No signs of infection. Mild ecchymosis. Complains of tenderness to palpation. No crepitus on palpation. No visible erythema. Skin warm dry intact Differential Diagnosis Kidney stone (Female): Other Kidney stone (Male): Strain, Urolithiasis, Other X-Ray, Labs, Meds, VS Vital Signs Date Time Temp Pulse Resp B/P (MAP) Pulse Ox O2 Delivery O2 Flow Rate FiO2 10/14/24 16:50 98.0 100 24 120/89 (99) 98 98.0 10/14/24 16:50 100 20 98 Room Air 10/14/24 12:52 97.8 104 18 119/83 (95) 97 Lab Test 10/14/24 15:06 Range/Units White Blood Count 9.5 4.4-10.8 10^3/uL Red Blood Count 4.36 L 4.5-5.90 10^6/uL Hemoglobin 14.2 13.5-17.5 g/dL Hematocrit 41.7 41.0-53.0 % Mean Corpuscular Volume 95.7 80.0-100.0 fL Mean Corpuscular Hemoglobin 32.5 H 28.0-32.0 pg Mean Corpuscular Hemoglobin Concent 33.9 32.0-36.0 g/dL Red Cell Distribution Width 14.0 11.8-14.3 % Platelet Count 423 140-450 10^3/uL Mean Platelet Volume 7.2 6.9-10.8 fL Neutrophils (%) (Auto) 65.7 37.0-80.0 % Lymphocytes (%) (Auto) 21.1 10.0-50.0 % Monocytes (%) (Auto) 10.4 0.0-12.0 % Eosinophils (%) (Auto) 2.0 0.0-7.0 % Basophils (%) (Auto) 0.8 0.0-2.0 % Neutrophils # (Auto) 6.3 1.6-8.6 10 ^3/uL Lymphocytes # (Auto) 2.0 0.4-5.4 10 ^3/uL Monocytes # (Auto) 1.0 0-1.3 10 ^3/uL Eosinophils # (Auto) 0.2 0-0.8 10 ^3/uL Basophils # (Auto) 0.1 0-0.2 10 ^3/uL Nucleated Red Blood Cells 0.0 % Sodium Level 142 136-145 mmol/L Potassium Level 3.9 3.5-5.1 mmol/L Chloride Level 109 H 98-107 mmol/L Carbon Dioxide Level 25 20-31 mmol/L Anion Gap 8 5-15 Blood Urea Nitrogen 10 9-23 mg/dL Creatinine 0.98 0.700-1.30 mg/dL Glomerular Filtration Rate Calc 90 >90 mL/min BUN/Creatinine Ratio 10.2 10.0-20.0 Serum Glucose 97 74-106 mg/dL Calcium Level 9.9 8.7-10.4 mg/dL Current Medications Medications (Trade) Dose Ordered Sig/Yareli Route Start Time Stop Time Status Last Admin Acetaminophen/ Codeine Phosphate (Tylenol W/Cod #3 Tablet) 1 tab ONCE ONCE PO 10/14/24 16:45 10/14/24 16:46 DC 10/14/24 16:48 PATIENT: ZANDER NAVAS LACCT: [id number]: [id number] : 1965 LOC: ER ROOM / BED: / AGE / SEX: 59 / M ADM STATUS: REG ER SERVICE 1456 ORDERING PHYSICIAN: NADYA ORDOÑEZ NP PROCEDURE(s): ABPL - CT AB PEL WO CON-NO ORAL OR IV REASON: pain ORDER NUMBER(s): [id number], ACCESSION NUMBER(s): [id number] CT ABDOMEN AND PELVIS WITHOUT CONTRAST CLINICAL HISTORY: pain TECHNIQUE: Multiple contiguous axial images of the abdomen and pelvis without intravenous contrast. The images were reformatted degenerate coronal and sagittal reconstructions. All CT scans at this medical facility are performed using dose modulation techniques as appropriate to a performed exam including the following:Automated exposure control was utilized; adjustment of the MA and/or KV according to patient size; and use of iterative reconstruction technique. Radiation Dose Information: CT Dose: CTDI volume is 8.5 mGy. Dose-length product is 529 mGy*cm Comparison: CT CT AB PEL WO CON-NO ORAL OR IV on DOS: 10/11/24, CT CT AB PEL WITH IV CON ONLY on DOS: 10/08/24 FINDINGS: Evaluation of the abdomen and pelvis is limited without intravenous contrast. The liver, gallbladder, pancreas, kidneys, adrenal glands, and spleen appear within normal limits. There is no gross evidence of abdominal lymphadenopathy. There is no free fluid or free air. The stomach grossly appears unremarkable. The small and large bowel loops demonstrate normal caliber. The abdominal aorta and IVC appear within normal limits. The bladder appears unremarkable for the degree of distention. Pelvic organ appears within normal limits. There is no gross evidence of a pelvic mass. There is no free fluid collection. There is stable appearance of left inguinal hernia with heterogeneous mixed fatty and soft tissue density contents. Lung bases are clear. There is no acute osseous abnormality. IMPRESSION: 1. Stable appearance of the left inguinal hernia with heterogeneous mixed fatty and soft tissue density contents. 2. There is no acute process in the abdomen and pelvis. HS:Y ATED BY: GREGG MONTOYA MD DICTATED DATE/TIME: 10/14/241544 SIGNED BY: GREGG MONTOYA MD SIGNED DATE/TIME: 10/14/241544 CC: X-Ray, Labs, Meds, VS Comment IMPRESSION: 1. Stable appearance of the left inguinal hernia with heterogeneous mixed fatty and soft tissue density contents. 2. There is no acute process in the abdomen and pelvis. Patient is stable for discharge at this time. External notes reviewed. Test results and diagnostic imaging interpreted. All diagnostic findings, discharge care, education and instructions provided Follow-up with surgeon in 2 to [address] was provided Patient verbalized understanding and agreed to treatment plan Vital signs stable, afebrile, no acute distress noted Patient ambulatory with strong steady gait Advised to return precautions for any new or worsening symptoms, return to ER immediately for re-evaluation Patient is aware that the purpose of this visit was for an acute medical emergency requiring emergent stabilization. Chronic conditions, including malignancies have not been ruled out. Patient is instructed to follow up with PCP as directed and discharge instructions for continued care and workup. If unable to arrange follow-up, patient is to return to the emergency department for reassessment. Patient (parent or legal guardian if applicable) was given verbal and written discharge instructions and acknowledges understanding. Time of 1ST Reevaluation: 16:00 Reevaluation 1ST: Improved Patient Education/Counseling: Diagnosis, Treatment Family Education/Counseling: Diagnosis, Treatment Departure 1 Departure Time of Disposition: 16:36 Impression: Primary Impression: Abdominal pain Qualified Codes: R10.84 - Generalized abdominal pain Disposition: 01 HOME / SELF CARE / HOMELESS Condition: Stable Discharged With: Self Critical Care Note Critical Care Time?: No Stability Stability form required: No Heart Score Heart Score: Heart Score Response (Comments) Value History N/A 0 EKG N/A 0 Age N/A 0 Risk Factors N/A 0 Troponin N/A 0 Total 0 NADYA ORDOÑEZ NP Oct 14, 2024 14:49
[2024-10-14 15:16] LABS: Basophils # (auto) 0.1 10 ^3/uL (0-0.2); Basophils % (auto) 0.8 % (0.0-2.0); Eosinophils # (auto) 0.2 10 ^3/uL (0-0.8); Hematocrit 41.7 % (41.0-53.0); Hemoglobin 14.2 g/dL (13.5-17.5); Lymphocytes % (auto) 21.1 % (10.0-50.0); Mean Corpuscular Hemoglobin 32.5 pg (28.0-32.0); Mean Corpuscular Hgb Conc. 33.9 g/dL (32.0-36.0); Mean Corpuscular Volume 95.7 fL (80.0-100.0); Monocytes % (auto) 10.4 % (0.0-12.0); Neutrophils # (auto) 6.3 10 ^3/uL (1.6-8.6); Neutrophils % (auto) 65.7 % (37.0-80.0); Platelet Count (auto) 423 10^3/uL (140-450); Red Blood Cells 4.36 10^6/uL (4.5-5.90); White Blood Cell 9.5 10^3/uL (4.4-10.8)
[2024-10-14 15:32] LABS: Potassium 3.9 mmol/L (3.5-5.1); Sodium 142 mmol/L (136-145)
[2024-10-14 15:33] LABS: Anion Gap 8 (5-15); Carbon Dioxide 25 mmol/L (20-31)
[2024-10-14 15:34] LABS: Calcium 9.9 mg/dL (8.7-10.4)
[2024-10-14 15:38] LABS: BUN/Creatinine Ratio 10.2 (10.0-20.0); Blood Urea Nitrogen 10 mg/dL (9-23); Glucose 97 mg/dL (74-106)
--- NOTE | 2024-10-14 15:45 | DVH ---
CT ABDOMEN AND PELVIS WITHOUT CONTRAST CLINICAL HISTORY: pain TECHNIQUE: Multiple contiguous axial images of the abdomen and pelvis without intravenous contrast. The images were reformatted degenerate coronal and sagittal reconstructions. All CT scans at this medical facility are performed using dose modulation techniques as appropriate t o a performed exam including the following:Automated exposure control was utilized; adjustment of the MA and/or KV according to patient size; and use of iterative reconstruction technique. Radiation Dose Information: CT Dose: CTDI volume is 8.5 mGy. Dose-length product is 529 mGy*cm Comparison: CT CT AB PEL WO CON-NO ORAL OR IV on DOS: 10/11/24, CT CT AB PEL WITH IV CON ONLY on DOS: 10/08/24 FINDINGS: Evaluation of the abdomen and pelvis is limited without intravenous contrast. The liver, gallbladder, pancreas, kidneys, adrenal glands, and spleen appear within normal limits. There is no gross evidence of abdominal lymphadenopathy. There is no free fluid or free air. The stomach grossly appears unremarkable. The small and large bowel loops demonstrate normal caliber . The abdominal aorta and IVC appear within normal limits. The bladder appears unremarkable for the degree of distention. Pelvic organ appears within normal hardin its. There is no gross evidence of a pelvic mass. There is no free fluid collection. There is stable appearance of left inguinal hernia with heterogeneous mixed fatty and soft tissue density contents. Lung bases are clear. There is no acute osseous abnormality. IMPRESSION: 1. Stable appearance of the left inguinal hernia with heterogeneous mixed fatty and soft tissue densi ty contents. 2. There is no acute process in the abdomen and pelvis. HS:Y
[2024-10-14 15:50] LABS: Chloride 109 mmol/L (98-107)
[2024-10-14] MEDS: ACETAMINOPHEN/CODEINE#3 (300/30mg) TAB PO ONE (16:48)
[2024-10-14 16:50] VITALS: BP 120/89; PULSE 100; RESP 20; TEMP 98; O2SAT 98
== END 2024-10-14 16:53 | disposition home or self-care (01) ==
LOC: ER 12:48
DX: R10.9 Unspecified abdominal pain (principal); F17.210 Nicotine dependence, cigarettes, uncomplicated; I10 Essential (primary) hypertension; Z86.73 Personal history of transient ischemic attack (TIA), and cerebral infarction without residual deficits; Z79.899 Other long term (current) drug therapy; Z86.69 Personal history of other diseases of the nervous system and sense organs; Z98.890 Other specified postprocedural states; Z88.6 Allergy status to analgesic agent; Z88.8 Allergy status to other drugs, medicaments and biological substances
CPT/HCPCS: 36415; 74176; 80048; 85025

== ENCOUNTER 2024-10-18 18:06 | Inpatient (IN) | payer OTHER, MEDICAID ==
[~2024-10-18] VITALS: Ht 190.5 cm; Wt 97.7 kg
--- NOTE | 2024-10-18 19:44 | DVH ---
Procedure: CT CT AB PEL WO CON-NO ORAL OR IV 10/18/2024 06:52 PM Indication: lower abd pain Comparison Study: None available at time of dictation. Technique: Axial images were obtained and reformatted in coronal and sagittal planes. All CT scans at this medical facility are performed using dose modulation techniques as appropriate t o a performed exam including the following: Automated exposure control was utilized; adjustment of th e MA and/or KV according to patient size; and use of iterative reconstruction technique. CT Dose: CTDI volume is 7.0 mGy. Dose-length product is 404.6 mGy*cm FINDINGS: Lower Chest: Unremarkable. Coronary artery calcification noted. Hepatobiliary: Unremarkable. Spleen: Unremarkable. Pancreas: Unremarkable. Adrenal Glands: Unremarkable. tract: The kidneys are normal in size bilaterally without hydronephrosis or nephrolithiasis. The urinary bladder is unremarkable. GI tract: The stomach is grossly normal in appearance. No evidence of small bowel obstruction. The la rge bowel is unremarkable. The appendix is normal. Lymphatics: No mesenteric, retroperitoneal or periportal lymphadenopathy. Mild bilateral inguinal fem oral canals lymphadenopathy measuring up to 2.1 x 0.9 cm. Vasculature: Aorta is normal in caliber. Scattered calcified plaques are noted. Pelvic Organs: Prostate is mildly enlarged. Bones/soft tissues: A left inguinal hernia noted measuring 6 cm in length, 3.3 cm transverse and 2.6 cm in AP containing intra-abdominal fat moderate amount of fluid, infiltration of the herniated fat m oderate overlying skin thickening and subcutaneous fat stranding. Other: None. IMPRESSION: 1. Moderate-size, complicated final fluid containing left inguinal hernia with overlying cellulitis a nd mild inguinal lymphadenopathy. Recommend surgical consultation.
[2024-10-18 20:04] LABS: Basophils # (auto) 0.1 10 ^3/uL (0-0.2); Basophils % (auto) 0.7 % (0.0-2.0); Eosinophils # (auto) 0.2 10 ^3/uL (0-0.8); Eosinophils % (auto) 1.6 % (0.0-7.0); Hematocrit 47.7 % (41.0-53.0); Hemoglobin 16.2 g/dL (13.5-17.5); Lymphocytes # (auto) 2.5 10 ^3/uL (0.4-5.4); Lymphocytes % (auto) 21.1 % (10.0-50.0); Mean Corpuscular Hemoglobin 32.2 pg (28.0-32.0); Mean Corpuscular Hgb Conc. 33.9 g/dL (32.0-36.0); Monocytes # (auto) 1.2 10 ^3/uL (0-1.3); Monocytes % (auto) 9.9 % (0.0-12.0); Neutrophils # (auto) 7.8 10 ^3/uL (1.6-8.6); Neutrophils % (auto) 66.7 % (37.0-80.0); Nucleated Red Blood Cells % 0.1 %; Platelet Count (auto) 435 10^3/uL (140-450); Red Blood Cells 5.02 10^6/uL (4.5-5.90); Red Cell Distribution Width 13.9 % (11.8-14.3); White Blood Cell 11.7 10^3/uL (4.4-10.8)
[2024-10-18] MEDS: ceFAZolin 1GM/50ML 50 ML IV ONE (20:15)
[2024-10-18 20:21] LABS: Alanine Aminotransferase 27 U/L (7-40); Alkaline Phosphatase 57 U/L (46-116); Anion Gap 8 (5-15); Aspartate Aminotransferase 14 U/L (13-40); BUN/Creatinine Ratio 11.9 (10.0-20.0); Blood Urea Nitrogen 13 mg/dL (9-23); Calcium 10.3 mg/dL (8.7-10.4); Carbon Dioxide 25 mmol/L (20-31); Chloride 107 mmol/L (98-107); Potassium 3.7 mmol/L (3.5-5.1); Sodium 140 mmol/L (136-145)
[2024-10-18 20:22] LABS: Bilirubin, Total 0.5 mg/dL (0.2-1.0); Total Protein 7.8 g/dL (5.7-8.2)
--- NOTE | 2024-10-18 20:32 | ED.PDOC ---
GI ASSESSMENT HPI Comments 59-year-old male who came to ER for abdominal pain. Patient underwent left inguinal hernia repair last October 02 tolerated procedure well. However after the surgery patient started complaining of left inguinal pain/postoperative pain and swelling. Patient was advised to proceed to the ER for further evaluation Chief Complaint: Abdominal pain Time Seen by MD: 20:35 Primary Care Provider: UNKNOWN Reviewed Notes: Nurses Notes Allergies: Coded Allergies: Caffeine (Verified Allergy, Severe, 09/13/11) Phenacetin (Verified Allergy, Severe, 09/13/11) Aspirin (Unverified Allergy, Unknown, 04/30/14) Home Meds Active Scripts Diphenoxylate W/ Atropine (Lomotil) 2.5 Mg Tab, 1 TAB PO TID, #30 TAB Prov:SIRIA MOREAU MD 09/23/24 Ibuprofen (Ibuprofen) 800 Mg Tab, 1 TAB PO TID PRN for 5 Days, #15 TAB 1 Refill Prov:ELIZA ARREOLAP 08/30/24 Gabapentin (Gabapentin) 300 Mg Cap, 1 CAP PO TID, #30 CAP Prov:CRISTIAN KAUR MD 07/13/24 Dicyclomine Hcl (BENTYL CAPSULE) 10 Mg Cp, 2 CAP PO TID, #30 CAP abdominal cramping Prov:CRISTIAN KAUR MD 07/13/24 Pantoprazole Sodium Sesquihydr (Pantoprazole Sodium Dr) 40 Mg Tab, 40 MG PO DAILY, #60 TAB Prov:CRISTIAN KAUR MD 07/13/24 Albuterol Sulfate (Albuterol Sulfate Hfa) 108 Mcg/Act Aer, 108 MCG IN Q4HPRN PRN, #1 AER Prov:RUSTY PADILLA PAC 02/24/24 Ondansetron Odt 4MG Tab (ZOFRAN PO) 4 Mg Tb, 4 MG PO Q6HP PRN, #20 TAB ODT TAB-DISSOLVE IN MOUTH, THEN SWALLOW Prov:MELINA DEWEY PAC 07/14/23 Celecoxib (Celebrex) 100 Mg Cap, 100 MG PO DAILY PRN, #14 MG Prov:CESAR SUMMERS N.P. 11/18/13 Cyclobenzaprine Hcl (FLEXERIL) 10 Mg Tab, 10 MG PO TID PRN, #20 TAB Prov:CESAR SUMMERS N.P. 11/18/13 Reported Medications Acetaminophen (Acetaminophen) 325 Mg Tab, 325 MG PO Q4HP PRN for MILD PAIN for 30 Days, MG 0 Refills 09/27/24 Atorvastatin Calcium (Lipitor) 40 Mg Tab, 1 TAB PO DAILY, #30 TAB 5 Refills 09/27/24 Hydrocodone-Acetaminophen (Hydrocodone/Acetaminophen) 1 Tab Tab, #30 08/26/13 Divalproex Sodium (Depakote Er) 500 Mg Tab 02/23/10 Information Source: Patient Mode of Arrival: Ambulatory Timing: Days Duration: Intermittent Prehospital treatment: None Quality: Aching Vomitus: None Stool: Normal Recent: Recent Surgery Recent Hx of: Abdominal Surgery Pain Location: Other (Left inguinal area) Modifying Factors: Nothing Associated sign and symptoms: Abdominal Pain Past Medical History PAST MEDICAL HISTORY: CVA, High Lipids, HTN, PUD, Seizures Surgical History: Hernia Repair Family History Family History: Reviewed,noncontributory to illness, Family hx of heart harshad Social History Smoker: Cigarettes Alcohol: Occasionally Drugs: Denies Drug Use Lives In: Home Constitutional: denies: chills, diaphoresis, fatigue, fever, malaise, sweats, weakness, others EENTM: denies: blurred vision, double vision, ear bleeding, ear discharge, ear drainage, ear pain, ear ringing, eye pain, eye redness, hearing loss, mouth pain, mouth swelling, nasal discharge, nose bleeding, nose congestion, nose pain, photophobia, tearing, throat pain, throat swelling, voice changes, others Respiratory: denies: cough, hemoptysis, orthopnea, SOB at rest, shortness of breath, SOB with excertion, stridor, wheezing, others Cardiovascular: denies: chest pain, dizzy spells, diaphoresis, Dyspnea on exertion, edema, irregular heart beat, left arm pain, lightheadedness, palpitations, PND, syncope, others Gastrointestinal: reports: abdominal pain (Left inguinal area); denies: abdomen distended, blood streaked bowels, constipated, diarrhea, dysphagia, difficulty swallowing, hematemesis, melena, nausea, poor appetite, poor fluid intake, rectal bleeding, rectal pain, vomiting, others Genitourinary: denies: burning, dysuria, flank pain, frequency, hematuria, incontinence, penile discharge, penile sore, pain, testicle pain, testicle swelling, urgency, others Neurological: denies: dizziness, fainting, headache, left sided numbness, left sided weakness, numbness, paresthesia, pre-existing deficit, right sided numbness, right sided weakness, seizure, speech problems, tingling, tremors, weakness, others Musculoskeletal: denies: back pain, gout, joint pain, joint swelling, muscle pain, muscle stiffness, neck pain, others Integumetry: denies: bruises, change in color, change in hair/nails, dryness, laceration, lesions, lumps, rash, wounds, others Allergic/Immunocompromised: denies: Difficulty Healing, Frequent Infections, Hives, Itching, others Hematologic/Lymphatic: denies: anemia, blood clots, easy bleeding, easy bruising, swollen glands, others Endocrine: denies: excessive hunger, excessive sweating, excessive thirst, excessive urination, flushing, intolerance to cold, intolerance to heat, unexplained weight gain, unexplained weight loss, others Psychiatric: denies: anxiety, bipolar disorder, depression, hopeless, panic disorder, schizophrenia, sleepless, suicidal, others Physical Exam General Appearance: No Apparent Distress, Normal HEENT: Normal ENT Inspection, Pharynx Normal, TMs Normal Neck: Full Range of Motion, Non-Tender, Normal, Normal Inspection Respiratory: Chest Non-Tender, Lungs Clear, No Accessory Muscle Use, No Respiratory Distress, Normal Breath Sounds Cardiovascular: No Edema, No JVD, No Murmur, No Gallop, Normal Peripheral Pulses, Regular Rate/Rhythm Breast Exam: Deferred Gastrointestinal: No Organomegaly, Non Tender, No Pulsatile Mass, Normal Bowel Sounds, Soft Genitalia: Deferred Pelvic: Deferred Rectal: Deferred Extremities: No calf tenderness, Normal capillary refill, Normal inspection, Normal range of motion, Non-tender, No pedal edema Musculoskeletal : Apperance: Normal Neurologic: Alert, fraud examiner II-XII nml as Tested, No Motor Deficits, Normal Affect, Normal Mood, No Sensory Deficits Cerebellar Function: Normal Reflexes: Normal Skin: Dry, Normal Color, Warm Lymphatic: No Adenopathy Was a procedure done? Was a procedure done?: No GI differential Dx Differential Diagnosis: Diverticular disease, Gastritis/PUD, Gastroenteritis, Hernia, Pancreatitis, Urinary Obstruction, UTI, Urolithiasis X-Ray, Labs, Meds, VS Vital Signs Date Time Temp Pulse Resp B/P (MAP) Pulse Ox O2 Delivery O2 Flow Rate FiO2 10/18/24 18:51 98.8 109 18 127/88 (101) 95 Lab Test 10/18/24 19:50 Range/Units White Blood Count 11.7 H 4.4-10.8 10^3/uL Red Blood Count 5.02 4.5-5.90 10^6/uL Hemoglobin 16.2 13.5-17.5 g/dL Hematocrit 47.7 # 41.0-53.0 % Mean Corpuscular Volume 95.0 80.0-100.0 fL Mean Corpuscular Hemoglobin 32.2 H 28.0-32.0 pg Mean Corpuscular Hemoglobin Concent 33.9 32.0-36.0 g/dL Red Cell Distribution Width 13.9 11.8-14.3 % Platelet Count 435 140-450 10^3/uL Mean Platelet Volume 7.6 6.9-10.8 fL Neutrophils (%) (Auto) 66.7 37.0-80.0 % Lymphocytes (%) (Auto) 21.1 10.0-50.0 % Monocytes (%) (Auto) 9.9 0.0-12.0 % Eosinophils (%) (Auto) 1.6 0.0-7.0 % Basophils (%) (Auto) 0.7 0.0-2.0 % Neutrophils # (Auto) 7.8 1.6-8.6 10 ^3/uL Lymphocytes # (Auto) 2.5 0.4-5.4 10 ^3/uL Monocytes # (Auto) 1.2 0-1.3 10 ^3/uL Eosinophils # (Auto) 0.2 0-0.8 10 ^3/uL Basophils # (Auto) 0.1 0-0.2 10 ^3/uL Nucleated Red Blood Cells 0.1 % Sodium Level Pending Potassium Level Pending Chloride Level Pending Carbon Dioxide Level Pending Anion Gap Pending Blood Urea Nitrogen Pending Creatinine Pending Glomerular Filtration Rate Calc Pending BUN/Creatinine Ratio Pending Serum Glucose Pending Calcium Level Pending Total Bilirubin Pending Aspartate Amino Transferase (AST) Pending Alanine Aminotransferase (ALT) Pending Alkaline Phosphatase Pending Total Protein Pending Albumin Pending Procedure: CT CT AB PEL WO CON-NO ORAL OR IV 10/18/2024 06:52 PM Indication: lower abd pain Comparison Study: None available at time of dictation. Technique: Axial images were obtained and reformatted in coronal and sagittal planes. All CT scans at this medical facility are performed using dose modulation t echniques as appropriate to a performed exam including the following: Automated exposure control was utilized; adjustment of the MA and/or KV according to patient size; and use of iterative reconstruction technique. CT Dose: CTDI volume is 7.0 mGy. Dose-length product is 404.6 mGy*cm FINDINGS: Lower Chest: Unremarkable. Coronary artery calcification noted. Hepatobiliary: Unremarkable. Spleen: Unremarkable. Pancreas: Unremarkable. Adrenal Glands: Unremarkable. tract: The kidneys are normal in size bilaterally without hydronephrosis or nephrolithiasis. The urinary bladder is unremarkable. GI tract: The stomach is grossly normal in appearance. No evidence of small bowel obstruction. The large bowel is unremarkable. The appendix is normal. Lymphatics: No mesenteric, retroperitoneal or periportal lymphadenopathy. Mild bilateral inguinal femoral canals lymphadenopathy measuring up to 2.1 x 0.9 cm. Vasculature: Aorta is normal in caliber. Scattered calcified plaques are noted. Pelvic Organs: Prostate is mildly enlarged. Bones/soft tissues: A left inguinal hernia noted measuring 6 cm in length, 3.3 cm transverse and 2.6 cm in AP containing intra-abdominal fat moderate amount of fluid, infiltration of the herniated fat moderate overlying skin thickening and subcutaneous fat stranding. Other: None. IMPRESSION: 1. Moderate-size, complicated final fluid containing left inguinal hernia with overlying cellulitis and mild inguinal lymphadenopathy. Recommend surgical consultation. Time of 1ST Reevaluation: 20:27 Reevaluation 1ST: Unchanged Time of 2ND Reevaluation: 20:37 Reevaluation 2ND: Unchanged Patient Education/Counseling: Diagnosis, Treatment Family Education/Counseling: No Family Present Departure 1 Departure Time of Disposition: 20:37 (Patient with recent left inguinal hernia repair by Dr Caballero now with apparent cellulitis, will admit for IV abx and further workup) Impression: Primary Impression: Left inguinal hernia Additional Impression: Cellulitis of groin, left Disposition: 09 ADMITTED INPATIENT Condition: Guarded Critical Care Note Critical Care Time?: No Stability Stability form required: No Heart Score Heart Score: Heart Score Response (Comments) Value History N/A 0 EKG N/A 0 Age N/A 0 Risk Factors N/A 0 Troponin N/A 0 Total 0 I personally scribed for LINNEA SHAH MD ([email or web address]) on 10/18/24 at 20:32. Electronically submitted by Curtis Skinner ([facility]). I personally scribed for LINNEA SHAH MD ([email or web address]) on 10/18/24 at 20:36. Electronically submitted by Curtis Skinner ([facility]). LINNEA SHAH MD Oct 18, 2024 20:32
[2024-10-18 21:02] LABS: Albumin 5.1 g/dL (3.2-4.8); Glucose 137 mg/dL (74-106)
[2024-10-18 21:05] VITALS: BP 137/92; PULSE 101; RESP 17; TEMP 97.5; O2SAT 95
[2024-10-18 21:32] LABS: Lactic Acid w/Reflex 4.4 mmol/L (0.4-2.0)
[2024-10-18] MEDS: SODIUM CHLORIDE 0.9% 1,000 ML IV ONE (21:45)
[2024-10-18] MEDS ORDERED: DOCUSATE SOD 100 MG CAP PO PRN (22:15)
[2024-10-18] MEDS ORDERED: VANCOMYCIN PER PHARMACY 0 MG IV SCH (22:15)
[2024-10-18] MEDS ORDERED: NITROGLYCERIN 0.4 MG SL TAB SL PRN (22:15)
[2024-10-18] MEDS ORDERED: ONDANSETRON HCL 4 MG/2 ML VIAL IV PRN (22:15)
[2024-10-18] MEDS ORDERED: MORPHINE SULFATE INJ 2 MG/ml SYRG IV PRN (22:15)
[2024-10-18] MEDS ORDERED: HYDROcodone-ACET 5/325MG TAB PO PRN (22:15)
[2024-10-18 23:00] VITALS: BP 137/74; PULSE 87; RESP 18; TEMP 98.6; O2SAT 96
[2024-10-18] MEDS: PIPERACILLIN-TAZOB 3.375GM 100 ML IV ONE (23:11)
[2024-10-18] MEDS: SODIUM CHLORIDE 0.9% 1,000 ML IV SCH (23:17)
[2024-10-19] VITALS (9 sets, daily range): BP systolic 101–151; BP diastolic 62–90; PULSE 62–85; RESP 16–20; TEMP 97.6–98.2; O2SAT 93–97
[2024-10-19] MEDS: MORPHINE SULFATE INJ 2 MG/ml SYRG IV PRN (03:05)
[2024-10-19 03:39] LABS: Urine Bacteria None Seen /hpf (None Seen)
[2024-10-19 03:51] LABS: Urine Blood Negative /uL (Negative); Urine Clarity Clear (Clear); Urine Color Light-Yellow (Yellow); Urine Protein, UAD Negative (Negative); Urine Specific Gravity 1.015 (1.001-1.035); Urine Squamous Epithelial Cell FEW /hpf (<5); Urine Urobilinogen Normal (Negative); Urine WBC 1 /hpf (0 - 3)
--- NOTE | 2024-10-19 03:57 | DVHHP2 ---
BINA PRESLEY [employer] 10/19/24 0357: History of Present Illness Reason for Visit: Abdominal pain History of Present Illness 59-year-old male with past history of TBI, alcohol dependence, Hypertension, Seizures,Multi substance abuse, left inguinal hernia Presents with complaints Of left lower abdominal pain. Patient previously had left inguinal hernia repair with Dr. Petty. Was supposed to follow up with the surgeon in his office on outpatient basis, however Never saw the surgeon in his office. At this time patient endorses redness swelling and pain to the groin. Last bowel movement was yesterday morning and Small. Patient endorsed one episode of nausea After drinking large amounts of water. During the emergency department evaluation CT of the pelvis demonstrates the complicated Fluid containing left and hernia with overline cellulitis And mild lymphadenopathy. Lactic acid also elevated at 4.4. Patient denies fevers, chills, Shortness of breath, chest pain, palpitations, hematemesis, hematochezia, melena, diarrhea, constipation. Cardiovascular: HTN [employer]OR: Other (tbi) Psych: Addictions Smoke: No ALCOHOL: heavy Lives: Other Review of Systems Constitutional: No: Fever, Chills, Sweats, Weakness, Malaise, Other Eyes: No: Pain, Vision change, Conjunctivae inflammation, Eyelid inflammation, Other, Redness ENT: No: Ear pain, Ear discharge, Nose pain, Nose discharge, Nose congestion, Mouth pain, Mouth swelling, Throat pain, Throat swelling, Other Respiratory: No: Cough, Dry, Shortness of breath, SOB with excertion, Wheezing, Hemoptysis, Pleuritic Pain, Sputum, Wheezing, Other Gastrointestinal: Nausea, Abdominal Pain; No: Vomiting, Diarrhea, Constipation, Melena, Hematochezia, Other Genitourinary: No Dysuria, No Frequency, No Incontinence, No Hematuria, No Retention, No Other Musculoskeletal: No: other, neck pain, shoulder pain, arm pain, back pain, hand pain, leg pain, foot pain Skin: No: Rash, Lesions, Jaundice, Bruising, Other Neurological: No: Weakness, Numbness, Incoordination, Change in speech, Confusion, Seizures, Other Allergies: Coded Allergies: Caffeine (Verified Allergy, Severe, 09/13/11) Phenacetin (Verified Allergy, Severe, 09/13/11) Aspirin (Unverified Allergy, Unknown, 04/30/14) Medications Current Medications Medications Dose Ordered Sig/Yareli Route Start Time Stop Time Status Last Admin Dose Admin Sodium Chloride 1,000 ml @ 125 mls/hr Q8H IV 10/18/24 22:15 10/18/24 23:17 125 MLS/HR Docusate Sodium 100 mg BIDPRN PRN PO 10/18/24 22:15 Acetaminophen 650 mg Q6HP PRN PO 10/18/24 22:15 Acetaminophen/ Hydrocodone Bitart 1 tab Q4HP PRN PO 10/18/24 22:15 Ondansetron HCl 4 mg Q4HP PRN IV 10/18/24 22:15 Morphine Sulfate 2 mg Q4HPRN PRN IV 10/18/24 22:15 10/19/24 03:05 2 MG Enoxaparin Sodium 40 mg DAILY SC 10/19/24 10:00 Nitroglycerin 0.4 mg Q5MINP PRN SL 10/18/24 22:15 Morphine Sulfate 2 mg Q30M PRN IV 10/18/24 22:15 Piperacillin Sod/ Tazobactam Sod 100 ml @ 100 mls/hr TID IV 10/19/24 06:00 Vancomycin HCl 0 ml @ 0 mls/hr UD IV 10/18/24 22:15 UNV Exam Vital Signs Vital Signs Date Time Temp Pulse Resp B/P (MAP) Pulse Ox O2 Delivery O2 Flow Rate FiO2 10/19/24 03:05 78 20 128/86 10/19/24 01:00 98.2 93 98.2 General Appearance: Alert, Oriented X3, mild distress HEENT: Atraumatic, PERRLA, EOMI Respiratory: Clear to auscultation, Normal air movement Cardiovascular: Regular rate, Normal S1, Normal S2 Abdominal: Normal bowel sounds, Soft Extremities: No clubbing, No cyanosis, No edema Skin: No rashes, No breakdown Neuro: Normal gait, Normal speech, Strength at 5/5 X4 ext Psych/Mental Status: Mental status NL, Mood NL Labs/Xrays Labs Test 10/18/24 22:55 10/18/24 19:50 10/18/24 03:26 Range/Units Lactic Acid Level 0.9 0.4-2.0 mmol/L White Blood Count 11.7 H 4.4-10.8 10^3/uL Red Blood Count 5.02 4.5-5.90 10^6/uL Hemoglobin 16.2 13.5-17.5 g/dL Hematocrit 47.7 # 41.0-53.0 % Mean Corpuscular Volume 95.0 80.0-100.0 fL Mean Corpuscular Hemoglobin 32.2 H 28.0-32.0 pg Mean Corpuscular Hemoglobin Concent 33.9 32.0-36.0 g/dL Red Cell Distribution Width 13.9 11.8-14.3 % Platelet Count 435 140-450 10^3/uL Mean Platelet Volume 7.6 6.9-10.8 fL Neutrophils (%) (Auto) 66.7 37.0-80.0 % Lymphocytes (%) (Auto) 21.1 10.0-50.0 % Monocytes (%) (Auto) 9.9 0.0-12.0 % Eosinophils (%) (Auto) 1.6 0.0-7.0 % Basophils (%) (Auto) 0.7 0.0-2.0 % Neutrophils # (Auto) 7.8 1.6-8.6 10 ^3/uL Lymphocytes # (Auto) 2.5 0.4-5.4 10 ^3/uL Monocytes # (Auto) 1.2 0-1.3 10 ^3/uL Eosinophils # (Auto) 0.2 0-0.8 10 ^3/uL Basophils # (Auto) 0.1 0-0.2 10 ^3/uL Nucleated Red Blood Cells 0.1 % Sodium Level 140 136-145 mmol/L Potassium Level 3.7 3.5-5.1 mmol/L Chloride Level 107 98-107 mmol/L Carbon Dioxide Level 25 20-31 mmol/L Anion Gap 8 5-15 Blood Urea Nitrogen 13 9-23 mg/dL Creatinine 1.09 0.700-1.30 mg/dL Glomerular Filtration Rate Calc 79 >90 mL/min BUN/Creatinine Ratio 11.9 10.0-20.0 Serum Glucose 137 H 74-106 mg/dL Calcium Level 10.3 8.7-10.4 mg/dL Total Bilirubin 0.5 0.2-1.0 mg/dL Aspartate Amino Transferase (AST) 14 13-40 U/L Alanine Aminotransferase (ALT) 27 7-40 U/L Alkaline Phosphatase 57 46-116 U/L Total Protein 7.8 5.7-8.2 g/dL Albumin 5.1 H 3.2-4.8 g/dL Assessment/Plan Assessment/Plan Cellulitis left groin Moderate left inguinal hernia Hypertension Hx etoh abuse Plan Admite telemetry General surgeon consulted per emergency department IVF IV abx NPO diet Monitor CBC / BMP / LA GI ppx protonix / DVT ppx lovenox Plan discussed with: Patient My Orders Orders - BINA PRESLEY NP Procedure Category Date Status Time Admit ADMIT 10/18/24 Transmitted 22:14 Code Status CODE 10/18/24 Transmitted 22:14 Vital Signs DILLON 10/18/24 In Process 22:14 Review Orders With DILLON 10/18/24 In Process Adm. 22:14 Encourage Activity As DILLON 10/18/24 In Process Tolerate 22:14 Npo (Nothing By DIET 10/19/24 Transmitted Mouth) Diet Breakfast Sodium Chloride 0.9% PHA 10/18/24 In Process 22:15 Oxygen By Face Mask RT 10/18/24 Transmitted 22:14 Docusate Sodium PHA 10/18/24 In Process Capsule (Colace 22:15 Acetaminophen Tablet PHA 10/18/24 In Process (Tylenol Tablet) 22:15 Notify Of Changes DILLON 10/18/24 In Process From Base 22:14 Advance Directive DILLON 10/18/24 In Process 22:14 Basic Metabolic Panel LAB 10/19/24 Logged 05:00 Basic Metabolic Panel LAB 10/20/24 Verified 05:00 Basic Metabolic Panel LAB 10/21/24 Verified 05:00 Basic Metabolic Panel LAB 10/22/24 Verified 05:00 Basic Metabolic Panel LAB 10/23/24 Verified 05:00 Complete Blood Count LAB 10/19/24 Logged 05:00 Complete Blood Count LAB 10/20/24 Verified 05:00 Complete Blood Count LAB 10/21/24 Verified 05:00 Complete Blood Count LAB 10/22/24 Verified 05:00 Complete Blood Count LAB 10/23/24 Verified 05:00 Patient Condition ORDERS 10/18/24 Transmitted 22:14 Allergies DILLON 10/18/24 In Process 22:14 Hydrocodone-Acet PHA 10/18/24 In Process 5/325mg Tab ([place] 22:15 Ondansetron Hcl PHA 10/18/24 In Process (Zofran) 22:15 Morphine Sulfate PHA 12/27/24 In Process Injection 22:15 Enoxaparin Sodium PHA 10/19/24 In Process (Lovenox) 10:00 Sequential DILLON 10/18/24 In Process Compression Device Nitroglycerin PHA 10/18/24 In Process Sublingual (Ntrostat 22:15 Morphine Sulfate PHA 10/18/24 In Process Injection 22:15 Stat Ekg For Chest DILLON 10/18/24 In Process Pain 22:14 Notify Md Of Changes DILLON 10/18/24 In Process From Base 22:14 Cap Cutter For DILLON 10/18/24 In Process 24 Hours 22:14 Emergency Dysrhythmia DILLON 10/18/24 In Process Protocol 22:14 Rhythm Strips Once DILLON 10/18/24 In Process Every Shift 22:14 Oxygen By Nasal RT 10/18/24 Transmitted Cannula 22:14 Piperacillin-Tazob PHA 10/19/24 In Process 3.375gm (Zosyn 3.375g 06:00 Vancomycin Per PHA 10/18/24 Pending Pharmacy 22:15 Lactic Acid W/ Reflex LAB 10/19/24 Logged Order 06:00 Lactic Acid W/ Reflex LAB 10/19/24 Logged Order 12:00 * Surgical Consult CONS 10/18/24 Transmitted Date of Service: Oct 19, 2024 Billing Provider: YOHANNES SALDANA MD Common Visit Codes: NOT BILLABLE YOHANNES SALDANA MD 10/19/24 1637: Review of Systems Allergies: Coded Allergies: Caffeine (Verified Allergy, Severe, 09/13/11) Phenacetin (Verified Allergy, Severe, 09/13/11) Aspirin (Unverified Allergy, Unknown, 04/30/14) Additional Comments Additional Comments Additional Comments Patient was seen and evaluated by me I agree with the assessment and plan as outlined by my nurse practitioner. BINA PRESLEY NP Oct 19, 2024 03:57 YOHANNES SALDANA MD Oct 19, 2024 16:37
[2024-10-19] MEDS ORDERED: PIPERACILLIN-TAZOB 3.375GM 100 ML IV SCH (06:00)
[2024-10-19 06:56] LABS: Anion Gap 6 (5-15); Carbon Dioxide 26 mmol/L (20-31); Potassium 3.9 mmol/L (3.5-5.1); Sodium 142 mmol/L (136-145)
[2024-10-19 06:57] LABS: Calcium 9.2 mg/dL (8.7-10.4)
[2024-10-19 07:02] LABS: BUN/Creatinine Ratio 9.9 (10.0-20.0); Glucose 102 mg/dL (74-106)
[2024-10-19 07:29] LABS: Basophils # (auto) 0.1 10 ^3/uL (0-0.2); Basophils % (auto) 1.3 % (0.0-2.0); Eosinophils # (auto) 0.2 10 ^3/uL (0-0.8); Eosinophils % (auto) 2.6 % (0.0-7.0); Hematocrit 40.4 % (41.0-53.0); Hemoglobin 13.5 g/dL (13.5-17.5); Lymphocytes % (auto) 25.5 % (10.0-50.0); Mean Corpuscular Hemoglobin 32.1 pg (28.0-32.0); Mean Corpuscular Hgb Conc. 33.5 g/dL (32.0-36.0); Mean Corpuscular Volume 95.8 fL (80.0-100.0); Monocytes # (auto) 1.2 10 ^3/uL (0-1.3); Monocytes % (auto) 15.4 % (0.0-12.0); Neutrophils # (auto) 4.2 10 ^3/uL (1.6-8.6); Neutrophils % (auto) 55.2 % (37.0-80.0); Nucleated Red Blood Cells % 0.1 %; Platelet Count (auto) 387 10^3/uL (140-450); Red Blood Cells 4.22 10^6/uL (4.5-5.90); Red Cell Distribution Width 13.6 % (11.8-14.3); White Blood Cell 7.7 10^3/uL (4.4-10.8)
[2024-10-19 09:06] LABS: Blood Urea Nitrogen 9 mg/dL (9-23); Chloride 110 mmol/L (98-107)
--- NOTE | 2024-10-19 09:16 | DVHINCON2 ---
Consultation - Surgical Date Seen: Oct 19, 2024 Referring Physician Reason for Consultation inguinal infection s/p hernia repair History of Present Illness History of Present Illness Patient had a previous a left inguinal hernia repair by Jovanny Mendez. patient came to the ER to evaluated for pain , redness and swelling of left inguinal area. Patient missed his follow up appointment with us in the surgical clinic. denies any nausea or vomiting Past Medical/Surgical History Past Medical/Surgical History TBI, alcohol dependence, Hypertension, Seizures,Multi substance abuse Family and Social History Family and Social History alcohol denies smoking or ilicit drug abuse Allergies and medications Allergies: Coded Allergies: Caffeine (Verified Allergy, Severe, 09/13/11) Phenacetin (Verified Allergy, Severe, 09/13/11) Aspirin (Unverified Allergy, Unknown, 04/30/14) Home Meds Active Scripts Diphenoxylate W/ Atropine (Lomotil) 2.5 Mg Tab, 1 TAB PO TID, #30 TAB Prov:SIRIA MOREAU MD 09/23/24 Ibuprofen (Ibuprofen) 800 Mg Tab, 1 TAB PO TID PRN for 5 Days, #15 TAB 1 Refill Prov:ELIZA ARREOLA 08/30/24 Gabapentin (Gabapentin) 300 Mg Cap, 1 CAP PO TID, #30 CAP Prov:CRISTIAN KAUR MD 07/13/24 Dicyclomine Hcl (BENTYL CAPSULE) 10 Mg Cp, 2 CAP PO TID, #30 CAP abdominal cramping Prov:CRISTIAN KAUR MD 07/13/24 Pantoprazole Sodium Sesquihydr (Pantoprazole Sodium Dr) 40 Mg Tab, 40 MG PO DAILY, #60 TAB Prov:CRISTIAN KAUR MD 07/13/24 Albuterol Sulfate (Albuterol Sulfate Hfa) 108 Mcg/Act Aer, 108 MCG IN Q4HPRN PRN, #1 AER Prov:RUSTY PADILLA PAC 02/24/24 Ondansetron Odt 4MG Tab (ZOFRAN PO) 4 Mg Tb, 4 MG PO Q6HP PRN, #20 TAB ODT TAB-DISSOLVE IN MOUTH, THEN SWALLOW Prov:MELINA DEWEY PAC 07/14/23 Celecoxib (Celebrex) 100 Mg Cap, 100 MG PO DAILY PRN, #14 MG Prov:CESAR SUMMERS N.P. 11/18/13 Cyclobenzaprine Hcl (FLEXERIL) 10 Mg Tab, 10 MG PO TID PRN, #20 TAB Prov:CESAR SUMMERS N.P. 11/18/13 Reported Medications Acetaminophen (Acetaminophen) 325 Mg Tab, 325 MG PO Q4HP PRN for MILD PAIN for 30 Days, MG 0 Refills 09/27/24 Atorvastatin Calcium (Lipitor) 40 Mg Tab, 1 TAB PO DAILY, #30 TAB 5 Refills 09/27/24 Hydrocodone-Acetaminophen (Hydrocodone/Acetaminophen) 1 Tab Tab, #30 08/26/13 Divalproex Sodium (Depakote Er) 500 Mg Tab 02/23/10 Review of systems Review of Systems: HEENT:Normal, CVS:Normal, RESPIRATORY:Normal, GI:Normal, :Normal, MSK:Normal, NEURO:Normal Examination Vital signs Vital Signs Date Time Temp Pulse Resp B/P (MAP) Pulse Ox O2 Delivery O2 Flow Rate FiO2 10/19/24 05:00 97.6 62 16 112/66 (81) 93 97.6 10/19/24 04:01 Room Air* 0 21 Medications Current Medications Medications (Trade) Dose Ordered Sig/Yareli Route PRN Reason Start Time Stop Time Status Last Admin Sodium Chloride 1,000 ml @ 125 mls/hr Q8H IV 10/18/24 22:15 10/18/24 23:17 Docusate Sodium (Colace Capsule) 100 mg BIDPRN PRN PO FOR CONSTIPATION 10/18/24 22:15 Acetaminophen (Tylenol Tablet) 650 mg Q6HP PRN PO PAIN SCALE 1-3 OR TEMP>100.4 10/18/24 22:15 Acetaminophen/ Hydrocodone Bitart ([place]dy 5/325MG Tab) 1 tab Q4HP PRN PO MODERATE PAIN (4-6 PAIN SCALE) 10/18/24 22:15 Ondansetron HCl (Zofran) 4 mg Q4HP PRN IV NAUSEA / VOMITING 10/18/24 22:15 Morphine Sulfate 2 mg Q4HPRN PRN IV SEVERE PAIN (7-10 PAIN SCALE) 10/18/24 22:15 10/19/24 03:05 Enoxaparin Sodium (Lovenox) 40 mg DAILY SC 10/19/24 10:00 Nitroglycerin (Ntrostat Sublingual) 0.4 mg Q5MINP PRN SL FOR CHEST PAIN 10/18/24 22:15 Morphine Sulfate 2 mg Q30M PRN IV FOR CHEST PAIN 10/18/24 22:15 Piperacillin Sod/ Tazobactam Sod 100 ml @ 100 mls/hr TID IV 10/19/24 06:00 Vancomycin HCl 0 ml @ 0 mls/hr UD IV 10/18/24 22:15 UNV Vancomycin HCl 250 ml @ 150 mls/hr Q2H IV 10/19/24 00:00 10/19/24 03:39 DC 10/19/24 00:00 Laboratory Labs Test 10/19/24 06:22 10/18/24 19:50 10/18/24 03:26 Range/Units White Blood Count 7.7 # 4.4-10.8 10^3/uL Red Blood Count 4.22 L 4.5-5.90 10^6/uL Hemoglobin 13.5 # 13.5-17.5 g/dL Hematocrit 40.4 #L 41.0-53.0 % Mean Corpuscular Volume 95.8 80.0-100.0 fL Mean Corpuscular Hemoglobin 32.1 H 28.0-32.0 pg Mean Corpuscular Hemoglobin Concent 33.5 32.0-36.0 g/dL Red Cell Distribution Width 13.6 11.8-14.3 % Platelet Count 387 140-450 10^3/uL Mean Platelet Volume 7.7 6.9-10.8 fL Neutrophils (%) (Auto) 55.2 37.0-80.0 % Lymphocytes (%) (Auto) 25.5 10.0-50.0 % Monocytes (%) (Auto) 15.4 H 0.0-12.0 % Eosinophils (%) (Auto) 2.6 0.0-7.0 % Basophils (%) (Auto) 1.3 0.0-2.0 % Neutrophils # (Auto) 4.2 1.6-8.6 10 ^3/uL Lymphocytes # (Auto) 2.0 0.4-5.4 10 ^3/uL Monocytes # (Auto) 1.2 0-1.3 10 ^3/uL Eosinophils # (Auto) 0.2 0-0.8 10 ^3/uL Basophils # (Auto) 0.1 0-0.2 10 ^3/uL Nucleated Red Blood Cells 0.1 % Lactic Acid Level 1.2 0.4-2.0 mmol/L Total Bilirubin 0.5 0.2-1.0 mg/dL Aspartate Amino Transferase (AST) 14 13-40 U/L Alanine Aminotransferase (ALT) 27 7-40 U/L Alkaline Phosphatase 57 46-116 U/L Total Protein 7.8 5.7-8.2 g/dL Albumin 5.1 H 3.2-4.8 g/dL Urine Color Light-yellow Yellow Urine Clarity Clear Clear Urine pH 5.0 5.0-9.0 Urine Specific [place] 1.015 1.001-1.035 Urine Protein Negative Negative Urine Ketones Negative Negative Urine Blood Negative Negative /uL Urine Nitrite Negative Negative Urine Bilirubin Negative Negative Urine Urobilinogen Normal Negative mg/dL Urine Leukocyte Esterase Negative Negative /uL Urine RBC 1 0 - 3 /hpf Urine WBC 1 0 - 3 /hpf Urine Squamous Epithelial Cells Few <5 /hpf Urine Bacteria None seen None Seen /hpf Urine Glucose Normal Normal mg/dL Examination: GENERAL:Normal, HEENT:Normal, NECK:Normal, LUNGS:Normal, CVS:Normal, ABDOMEN:Normal, MSK:Normal, SKIN:Abnormal (left groin redness and swelling ), :Normal Problem List/Assessment/Plan Problems: (1) Cellulitis of groin, left (2) Left inguinal hernia Assessment and Plan patient complaint of pain , swelling and redness to the left inguinal left groin tender to palpation with some redness to area labs, image reports and notes reviewed and discussed with Dr. Petty continue with IV antibiotics patient to wear scrotal support continuously Plan discussed with Plan discussed with: Patient, Other (Dr. Petty ) Visit Coding Surgery Date of Service if different f: Oct 19, 2024 Billing Provider: PIEDAD PETTY MD Surgery Visit Codes: 30861 - INP CONSULT <80 MIN HELEN VIRK SENIOR SUSTAINABILITY CONSULTANT Oct 19, 2024 09:16
[2024-10-19] MEDS: ENOXAPARIN SOD 40 MG/0.4 ML SYRINGE SC SCH (10:00)
[2024-10-19] MEDS: ACETAMINOPHEN 325 MG TAB PO PRN (11:12)
[2024-10-19 13:58] LABS: Lactic Acid w/Reflex 2.9 mmol/L (0.4-2.0)
[2024-10-19] MEDS: VANCOMYCIN 1GM/250ML KIT 250 ML IV SCH ×2 (14:11)
[2024-10-19] MEDS: PIPERACILLIN-TAZOB 3.375GM 100 ML IV SCH (16:35)
[2024-10-20 05:00] VITALS: BP 107/66; PULSE 65; RESP 18; TEMP 97.9; O2SAT 92
[2024-10-20 06:02] LABS: Basophils # (auto) 0.1 10 ^3/uL (0-0.2); Basophils % (auto) 1.2 % (0.0-2.0); Eosinophils # (auto) 0.2 10 ^3/uL (0-0.8); Eosinophils % (auto) 2.5 % (0.0-7.0); Hematocrit 41.3 % (41.0-53.0); Hemoglobin 14.1 g/dL (13.5-17.5); Lymphocytes # (auto) 1.6 10 ^3/uL (0.4-5.4); Lymphocytes % (auto) 19.9 % (10.0-50.0); Mean Corpuscular Hemoglobin 32.5 pg (28.0-32.0); Mean Corpuscular Hgb Conc. 34.1 g/dL (32.0-36.0); Mean Corpuscular Volume 95.1 fL (80.0-100.0); Monocytes # (auto) 1.1 10 ^3/uL (0-1.3); Monocytes % (auto) 13.8 % (0.0-12.0); Neutrophils # (auto) 4.9 10 ^3/uL (1.6-8.6); Neutrophils % (auto) 62.6 % (37.0-80.0); Platelet Count (auto) 370 10^3/uL (140-450); Red Blood Cells 4.34 10^6/uL (4.5-5.90); Red Cell Distribution Width 13.6 % (11.8-14.3); White Blood Cell 7.8 10^3/uL (4.4-10.8)
[2024-10-20 06:22] LABS: Anion Gap 8 (5-15); Calcium 9.7 mg/dL (8.7-10.4); Carbon Dioxide 25 mmol/L (20-31); Potassium 3.8 mmol/L (3.5-5.1); Sodium 142 mmol/L (136-145)
[2024-10-20 06:28] LABS: Glucose 100 mg/dL (74-106)
[2024-10-20 06:32] LABS: Blood Urea Nitrogen 6 mg/dL (9-23); Chloride 109 mmol/L (98-107)
[2024-10-20 08:00] VITALS: PULSE 70; RESP 20; O2SAT 95
[2024-10-20 08:55] VITALS: BP 126/69; PULSE 70; RESP 20; TEMP 97.5; O2SAT 95
[2024-10-20 13:00] VITALS: BP 143/70; PULSE 59; RESP 20; TEMP 98.9; O2SAT 97
--- NOTE | 2024-10-20 16:04 | DVHPN2 ---
Subjective Overnight events noted. Patient has been refusing IV line, IV antibiotics. General surgery cleared the patient to be discharged. Reviewed: Care Plan Changes from previous H/P or p: No Changes Eyes: No Pain, No Vision change, No Conjunctivae inflammation, No Eyelid inflammation, No Other, No Redness ENT: No Ear pain, No Ear discharge, No Nose pain, No Nose discharge, No Nose congestion, No Mouth pain, No Mouth swelling, No Throat pain, No Throat swelling, No Other Respiratory: No Cough, No Dry, No Shortness of breath, No SOB with excertion, No Wheezing, No Hemoptysis, No Pleuritic Pain, No Sputum, No Other Gastrointestinal: Nausea; No Vomiting; Abdominal Pain; No Diarrhea, No Constipation, No Melena, No Hematochezia, No Other Genitourinary: No Dysuria, No Frequency, No Incontinence, No Hematuria, No Retention, No Other Musculoskeletal: No other, No neck pain, No shoulder pain, No arm pain, No back pain, No hand pain, No leg pain, No foot pain Skin: No Rash, No Lesions, No Jaundice, No Bruising, No Other Objective Vitals Vital Signs Date Time Temp Pulse Resp B/P (MAP) Pulse Ox O2 Delivery O2 Flow Rate FiO2 10/20/24 13:00 98.9 59 20 143/70 (94) 97 98.9 10/20/24 08:00 Room Air* 0 21 Intake/Output Intake and Output 10/20/24 07:00 Intake Total 2419 ml Output Total 2980 ml Balance -561 ml Intake Oral 1819 ml IV Total 600 ml Output Urine Total 2980 ml # Bowel Movements 4 Exam HEENT pupils are reactive Neck is supple CV is S1-S2 regular rate and rhythm Respiratory are clear GI positive bowel sound Extremity no edema [employer] no motor deficit Medications Current Medications Medications Dose Ordered Sig/Yareli Route Start Time Stop Time Status Last Admin Dose Admin Sodium Chloride 1,000 ml @ 125 mls/hr Q8H IV 10/18/24 22:15 10/19/24 14:15 125 MLS/HR Docusate Sodium 100 mg BIDPRN PRN PO 10/18/24 22:15 Acetaminophen 650 mg Q6HP PRN PO 10/18/24 22:15 10/20/24 11:38 650 MG Ondansetron HCl 4 mg Q4HP PRN IV 10/18/24 22:15 Morphine Sulfate 2 mg Q4HPRN PRN IV 10/18/24 22:15 10/19/24 03:05 2 MG Enoxaparin Sodium 40 mg DAILY SC 10/19/24 10:00 Nitroglycerin 0.4 mg Q5MINP PRN SL 10/18/24 22:15 Morphine Sulfate 2 mg Q30M PRN IV 10/18/24 22:15 Vancomycin HCl 0 ml @ 0 mls/hr UD IV 10/18/24 22:15 Vancomycin HCl 250 ml @ 250 mls/hr Q10H IV 10/19/24 10:00 10/19/24 20:00 250 MLS/HR Piperacillin Sod/ Tazobactam Sod 100 ml @ 100 mls/hr Q6H IV 10/19/24 15:00 10/19/24 16:35 100 MLS/HR Divalproex Sodium 500 mg BID PO 10/20/24 22:00 UNV Laboratory Results Laboratory Tests 10/20/24 05:26 Chemistry Test 10/20/24 05:26 Calcium Level 9.7 mg/dL (8.7-10.4) Urinalysis Test 10/18/24 03:26 Urine Color Light-yellow (Yellow) Urine Clarity Clear (Clear) Urine pH 5.0 (5.0-9.0) Urine Specific [place] 1.015 (1.001-1.035) Urine Protein Negative (Negative) Urine Ketones Negative (Negative) Urine Blood Negative /uL (Negative) Urine Nitrite Negative (Negative) Urine Bilirubin Negative (Negative) Urine Urobilinogen Normal mg/dL (Negative) Urine Leukocyte Esterase Negative /uL (Negative) Urine RBC 1 /hpf (0 - 3) Urine WBC 1 /hpf (0 - 3) Urine Squamous Epithelial Cells Few /hpf (<5) Urine Bacteria None seen /hpf (None Seen) Urine Glucose Normal mg/dL (Normal) Microbiology Microbiology Date/Time Source Procedure Growth Status 10/18/24 20:50 Blood Blood Culture - Preliminary NO GROWTH AFTER 24 HOURS OF INCUBATION. Resulted Assessment/Plan Assessment/Plan 59-year-old male came in with left groin pain with a recent history of hernia repair found to have 1. Left groin cellulitis 2. Left inguinal hernia status post hernia repair 3. Traumatic brain injury 4. Seizure disorder 5. Agitation/behavior disorder 6. Noncompliance to the medications and lab draws -continue antibiotics, follow up General surgery, discharge plan Plan discussed with: Patient My Orders Orders - YOHANNES SALDANA MD Procedure Category Date Status Time Soft Diet DIET 10/20/24 Transmitted Lunch Transfer Orders XFER 10/20/24 Transmitted 15:12 Discontinue Tele DILLON 10/20/24 In Process 15:[address] Tablet PHA 10/20/24 Logged (Depakote "" Tabl 22:00 Date of Service: Oct 20, 2024 Billing Provider: YOHANNES SALDANA MD Common Visit Codes: NOT BILLABLE YOHANNES SALDANA MD Oct 20, 2024 16:03
[2024-10-20 17:03] VITALS: BP 108/69; PULSE 64; RESP 20; TEMP 99; O2SAT 94
[2024-10-20 22:00] VITALS: BP 124/78; PULSE 78; RESP 18; TEMP 97.7; O2SAT 96
[2024-10-21] VITALS (7 sets, daily range): BP systolic 89–145; BP diastolic 47–86; PULSE 64–82; RESP 18–19; TEMP 36.4; O2SAT 94–96
[2024-10-21 06:47] LABS: Basophils # (auto) 0.1 10 ^3/uL (0-0.2); Basophils % (auto) 0.9 % (0.0-2.0); Eosinophils # (auto) 0.2 10 ^3/uL (0-0.8); Eosinophils % (auto) 2.7 % (0.0-7.0); Hematocrit 43.5 % (41.0-53.0); Hemoglobin 14.7 g/dL (13.5-17.5); Lymphocytes # (auto) 1.8 10 ^3/uL (0.4-5.4); Lymphocytes % (auto) 22.7 % (10.0-50.0); Mean Corpuscular Hemoglobin 32.5 pg (28.0-32.0); Mean Corpuscular Hgb Conc. 33.9 g/dL (32.0-36.0); Monocytes # (auto) 1.1 10 ^3/uL (0-1.3); Monocytes % (auto) 13.3 % (0.0-12.0); Neutrophils # (auto) 4.9 10 ^3/uL (1.6-8.6); Neutrophils % (auto) 60.4 % (37.0-80.0); Platelet Count (auto) 351 10^3/uL (140-450); Red Blood Cells 4.53 10^6/uL (4.5-5.90); Red Cell Distribution Width 13.8 % (11.8-14.3); White Blood Cell 8.1 10^3/uL (4.4-10.8)
[2024-10-21 07:14] LABS: Anion Gap 11 (5-15); Carbon Dioxide 22 mmol/L (20-31); Potassium 3.8 mmol/L (3.5-5.1); Sodium 141 mmol/L (136-145)
[2024-10-21 07:15] LABS: Calcium 9.7 mg/dL (8.7-10.4)
[2024-10-21 07:16] LABS: Chloride 108 mmol/L (98-107)
[2024-10-21 07:20] LABS: Blood Urea Nitrogen 9 mg/dL (9-23); Glucose 108 mg/dL (74-106)
--- NOTE | 2024-10-21 11:28 | DVHPN2 ---
Progress Note Date Seen: Oct 21, 2024 Medical Necessity Reason Pt with a Central, PICC or Fol: No Subjective Patient reports: No new complaints, Feels better Review of Systems: HEENT:Normal, CVS:Normal, RESPIRATORY:Normal, GI:Normal, :Normal, NEURO:Normal Objective vital signs Vital Sign Date Time Temp Pulse Resp B/P (MAP) Pulse Ox O2 Delivery O2 Flow Rate FiO2 10/21/24 09:00 97.5 82 18 130/86 (101) 94 97.5 10/21/24 08:00 Room Air* 0 21 Total Intake and Output 10/20/24 10/20/24 10/21/24 14:59 22:59 06:59 Intake Total 600 ml 500 ml Output Total 950 ml Balance 600 ml -450 ml medications Current Medications Medications Dose Ordered Sig/Yareli Route Start Time Stop Time Status Last Admin Dose Admin Sodium Chloride 1,000 ml @ 125 mls/hr Q8H IV 10/18/24 22:15 10/19/24 14:15 125 MLS/HR Docusate Sodium 100 mg BIDPRN PRN PO 10/18/24 22:15 Acetaminophen 650 mg Q6HP PRN PO 10/18/24 22:15 10/20/24 11:38 650 MG Ondansetron HCl 4 mg Q4HP PRN IV 10/18/24 22:15 Morphine Sulfate 2 mg Q4HPRN PRN IV 10/18/24 22:15 10/19/24 03:05 2 MG Enoxaparin Sodium 40 mg DAILY SC 10/19/24 10:00 10/21/24 09:40 40 MG Nitroglycerin 0.4 mg Q5MINP PRN SL 10/18/24 22:15 Morphine Sulfate 2 mg Q30M PRN IV 10/18/24 22:15 Vancomycin HCl 0 ml @ 0 mls/hr UD IV 10/18/24 22:15 Vancomycin HCl 250 ml @ 250 mls/hr Q10H IV 10/19/24 10:00 10/19/24 20:00 250 MLS/HR Piperacillin Sod/ Tazobactam Sod 100 ml @ 100 mls/hr Q6H IV 10/19/24 15:00 10/21/24 09:40 100 MLS/HR Divalproex Sodium 500 mg BID PO 10/20/24 22:00 10/21/24 09:40 500 MG Examination: GENERAL:Normal, HEENT:Normal, NECK:Normal, LUNGS:Normal, CVS:Normal, ABDOMEN:Normal, MSK:Normal laboratory and microbiology Laboratory Tests 10/21/24 05:36 Test 10/21/24 05:36 Range/Units Serum Glucose 108 H 74-106 mg/dL Problem List/Assessment/Plan Problem List/Assessment/Plan 10/21/24 patient states he feels better, denies nausea and vomiting, minimal pain to left groin, tender to left groin, patient advised of an IV for IV antibiotics, patient to wear scrotal support continuously except for showering, no heavy lifting or straining, when patient discharged patient to follow up in clinic in 1-2 weeks , please send home with PO antibiotics Plan discussed with: Patient, Other (Dr. Petty ) HLEEN VIRK NP Oct 21, 2024 11:28
[2024-10-21] MEDS ORDERED: AUG875T PO (16:13)
--- NOTE | 2024-10-21 16:15 | DVHDS2 ---
Discharge Summary Date of Admission Oct 18, 2024 at 22:14 Date of Discharge: Oct 21, 2024 Labs/Diagnostic Data: Laboratory Results Test 10/21/24 05:36 10/20/24 05:26 10/19/24 15:27 10/18/24 19:50 White Blood Count 8.1 10^3/uL (4.4-10.8) Red Blood Count 4.53 10^6/uL (4.5-5.90) Hemoglobin 14.7 g/dL (13.5-17.5) Hematocrit 43.5 % (41.0-53.0) Mean Corpuscular Volume 96.0 fL (80.0-100.0) Mean Corpuscular Hemoglobin 32.5 pg (28.0-32.0) Mean Corpuscular Hemoglobin Concent 33.9 g/dL (32.0-36.0) Red Cell Distribution Width 13.8 % (11.8-14.3) Platelet Count 351 10^3/uL (140-450) Mean Platelet Volume 7.6 fL (6.9-10.8) Neutrophils (%) (Auto) 60.4 % (37.0-80.0) Lymphocytes (%) (Auto) 22.7 % (10.0-50.0) Monocytes (%) (Auto) 13.3 % (0.0-12.0) Eosinophils (%) (Auto) 2.7 % (0.0-7.0) Basophils (%) (Auto) 0.9 % (0.0-2.0) Neutrophils # (Auto) 4.9 10 ^3/uL (1.6-8.6) Lymphocytes # (Auto) 1.8 10 ^3/uL (0.4-5.4) Monocytes # (Auto) 1.1 10 ^3/uL (0-1.3) Eosinophils # (Auto) 0.2 10 ^3/uL (0-0.8) Basophils # (Auto) 0.1 10 ^3/uL (0-0.2) Nucleated Red Blood Cells 0.0 % Sodium Level 141 mmol/L (136-145) Potassium Level 3.8 mmol/L (3.5-5.1) Chloride Level 108 mmol/L (98-107) Carbon Dioxide Level 22 mmol/L (20-31) Anion Gap 11 (5-15) Blood Urea Nitrogen 9 mg/dL (9-23) Creatinine 0.90 mg/dL (0.700-1.30) Glomerular Filtration Rate Calc 100 mL/min (>90) BUN/Creatinine Ratio 10.0 (10.0-20.0) Serum Glucose 108 mg/dL (74-106) Calcium Level 9.7 mg/dL (8.7-10.4) Vancomycin Level Trough 13.1 ug/mL (5-10) Lactic Acid Level 1.3 mmol/L (0.4-2.0) Total Bilirubin 0.5 mg/dL (0.2-1.0) Aspartate Amino Transferase (AST) 14 U/L (13-40) Alanine Aminotransferase (ALT) 27 U/L (7-40) Alkaline Phosphatase 57 U/L (46-116) Total Protein 7.8 g/dL (5.7-8.2) Albumin 5.1 g/dL (3.2-4.8) Test 10/18/24 03:26 Urine Color Light-yellow (Yellow) Urine Clarity Clear (Clear) Urine pH 5.0 (5.0-9.0) Urine Specific [place] 1.015 (1.001-1.035) Urine Protein Negative (Negative) Urine Ketones Negative (Negative) Urine Blood Negative /uL (Negative) Urine Nitrite Negative (Negative) Urine Bilirubin Negative (Negative) Urine Urobilinogen Normal mg/dL (Negative) Urine Leukocyte Esterase Negative /uL (Negative) Urine RBC 1 /hpf (0 - 3) Urine WBC 1 /hpf (0 - 3) Urine Squamous Epithelial Cells Few /hpf (<5) Urine Bacteria None seen /hpf (None Seen) Urine Glucose Normal mg/dL (Normal) Other Laboratory Tests 10/21/24 05:36 Brief Hx & Hospital Course: 59-year-old male came in with left groin pain with a recent history of hernia repair found to have left groin cellulitis. Patient has a recent surgery with Dr. Petty for hernia repair. The patient does have known history of traumatic brain injury and seizure disorder. Patient's hospital course was eventful for noncompliance with the treatment. Patient will be discharged on p.o. antibiotics with a close follow up as an outpatient with the PCP as well as General surgery. Condition at Discharge: Stable Final Diagnosis/Problems List 59-year-old male came in with left groin pain with a recent history of hernia repair found to have 1. Left groin cellulitis 2. Left inguinal hernia status post hernia repair 3. Traumatic brain injury 4. Seizure disorder 5. Agitation/behavior disorder 6. Noncompliance compliance teaching has been given Discharge Disposition: Home SNF Discharge Will this Physician continue t: No Discharge Instruct/Medications Diet: Cardiac 2g Na,low cholest Activity: See Comment Activity comment: No heavy lifting, please wear scrotal support all the time except showering Follow Up/Referral: Follow up with the PCP in one week Follow up with Dr. Coughlin in one week Medications: Augmentin as prescribed Discharge Statement: "Patient was advised to return to the ER or call 911 if any headaches, dizziness, shortness of breath, chest pain, abdominal pain, bleeding, fevers, or worsening of medical condition. Patient was counseled about treatment plan, medications, possible side effects, patientverbalized understanding. All questions were answered to the best of my ability. This discharge took greater then 30 minutes in planning, reviewing documentation, counseling the patient, and discussing with other team members." ASSESSMENT ASSESSMENT Assessment 59-year-old male came in with left groin pain with a recent history of hernia repair found to have 1. Left groin cellulitis 2. Left inguinal hernia status post hernia repair 3. Traumatic brain injury 4. Seizure disorder 5. Agitation/behavior disorder 6. Noncompliance compliance teaching has been given Date of Service: Oct 21, 2024 Billing Provider: YOHANNES SALDANA MD Common Visit Codes: NOT BILLABLE YOHANNES SALDANA MD Oct 21, 2024 16:15
== END 2024-10-21 18:25 | disposition home or self-care (01) | DRG 603 ==
LOC: ER 18:06 → TELE 22:14 → TELE-CENTR 10-19 02:03 → CENTRAL 10-20 15:28
PROVIDERS: ADMIT Internal Medicine; ATTEND Internal Medicine
DX: L03.314 Cellulitis of groin (principal); I10 Essential (primary) hypertension; F10.20 Alcohol dependence, uncomplicated; Y90.9 Presence of alcohol in blood, level not specified; R59.0 Localized enlarged lymph nodes; G40.909 Epilepsy, unspecified, not intractable, without status epilepticus; Z53.20 Procedure and treatment not carried out because of patient's decision for unspecified reasons; Z88.6 Allergy status to analgesic agent; Z88.8 Allergy status to other drugs, medicaments and biological substances; Z79.899 Other long term (current) drug therapy; Z79.1 Long term (current) use of non-steroidal anti-inflammatories (NSAID); Z87.11 Personal history of peptic ulcer disease; Z91.148 Patient's other noncompliance with medication regimen for other reason; Z91.199 Patient's noncompliance with other medical treatment and regimen due to unspecified reason; Z87.820 Personal history of traumatic brain injury
CPT/HCPCS: 36415; 74176; 80048; 80053; 80202; 81001; 83605; 85025; 87040; G0378; J2543

== ENCOUNTER 2025-02-18 20:19 | Emergency (ER) | payer OTHER, MEDICAID ==
[~2025-02-18] VITALS: Ht 182.9 cm; Wt 91.0 kg
[~2025-02-18 20:19] MED LIST changes: +AUG875T PO
--- NOTE | 2025-02-18 22:02 | ED.PDOC ---
GI ASSESSMENT HPI Comments 59-year-old male BIBA for a C/C of epigastric abdominal pain with N/V/D for the past couple of days. PMH of Pancreatitis and Alcohol use. Patient has strong scent of cigarette use. Chief Complaint: Abdominal Pain Time Seen by MD: 21:33 Primary Care Provider: UNKNOWN Reviewed Notes: Medications, Allergies Allergies: Coded Allergies: Caffeine (Verified Allergy, Severe, 09/13/11) Phenacetin (Verified Allergy, Severe, 09/13/11) Aspirin (Unverified Allergy, Unknown, 04/30/14) Home Meds Active Scripts Amoxicillin & Pot Clavulanate (AUGMENTIN TABLET) 875 Mg Tb, 875 MG PO BID for 10 Days, #20 TAB Prov:YOHANNES SALDANA MD 10/21/24 Diphenoxylate W/ Atropine (Lomotil) 2.5 Mg Tab, 1 TAB PO TID, #30 TAB Prov:SIRIA MOREAU MD 09/23/24 Ibuprofen (Ibuprofen) 800 Mg Tab, 1 TAB PO TID PRN for 5 Days, #15 TAB 1 Refill Prov:ELIZA ARREOLA MOLD TECHNICIAN 08/30/24 Gabapentin (Gabapentin) 300 Mg Cap, 1 CAP PO TID, #30 CAP Prov:CRISTIAN KAUR MD 07/13/24 Dicyclomine Hcl (BENTYL CAPSULE) 10 Mg Cp, 2 CAP PO TID, #30 CAP abdominal cramping Prov:CRISTIAN KAUR MD 07/13/24 Pantoprazole Sodium Sesquihydr (Pantoprazole Sodium Dr) 40 Mg Tab, 40 MG PO DAILY, #60 TAB Prov:CRISTIAN KAUR MD 07/13/24 Albuterol Sulfate (Albuterol Sulfate Hfa) 108 Mcg/Act Aer, 108 MCG IN Q4HPRN PRN, #1 AER Prov:RUSTY PADILLA PAC 02/24/24 Ondansetron Odt 4MG Tab (ZOFRAN PO) 4 Mg Tb, 4 MG PO Q6HP PRN, #20 TAB ODT TAB-DISSOLVE IN MOUTH, THEN SWALLOW Prov:MELINA DEWEY PAC 07/14/23 Celecoxib (Celebrex) 100 Mg Cap, 100 MG PO DAILY PRN, #14 MG Prov:CESAR SUMMERS N.P. 11/18/13 Cyclobenzaprine Hcl (FLEXERIL) 10 Mg Tab, 10 MG PO TID PRN, #20 TAB Prov:KRISTOPHERCESAR N.P. 11/18/13 Reported Medications Acetaminophen (Acetaminophen) 325 Mg Tab, 325 MG PO Q4HP PRN for MILD PAIN for 30 Days, MG 0 Refills 09/27/24 Atorvastatin Calcium (Lipitor) 40 Mg Tab, 1 TAB PO DAILY, #30 TAB 5 Refills 09/27/24 Hydrocodone-Acetaminophen (Hydrocodone/Acetaminophen) 1 Tab Tab, #30 08/26/13 Divalproex Sodium (Depakote Er) 500 Mg Tab 02/23/10 Information Source: Patient Mode of Arrival: EMS Timing: Days Duration: Since onset Prehospital treatment: None Quality: Aching Vomitus: Food Particles Stool: Watery, Brown Severity: Moderate Recent: None Recent Hx of: None Pain Location: Epigastric Associated sign and symptoms: Nausea, Vomiting, Diarrhea, Abdominal Pain Past Medical History PAST MEDICAL HISTORY: CVA, High Lipids, HTN, PUD, Seizures Surgical History: Hernia Repair Family History Family History: Reviewed,noncontributory to illness, Family hx of heart harshad Social History Smoker: Cigarettes Alcohol: Occasionally Drugs: Denies Drug Use Lives In: Home Constitutional: denies: chills, diaphoresis, fatigue, fever, malaise, sweats, weakness, others EENTM: denies: blurred vision, double vision, ear bleeding, ear discharge, ear drainage, ear pain, ear ringing, eye pain, eye redness, hearing loss, mouth pain, mouth swelling, nasal discharge, nose bleeding, nose congestion, nose pain, photophobia, tearing, throat pain, throat swelling, voice changes, others Respiratory: denies: cough, hemoptysis, orthopnea, SOB at rest, shortness of breath, SOB with excertion, stridor, wheezing, others Cardiovascular: denies: chest pain, dizzy spells, diaphoresis, Dyspnea on exertion, edema, irregular heart beat, left arm pain, lightheadedness, palpitations, PND, syncope, others Gastrointestinal: reports: abdominal pain, diarrhea, nausea, vomiting; denies: abdomen distended, blood streaked bowels, constipated, dysphagia, difficulty swallowing, hematemesis, melena, poor appetite, poor fluid intake, rectal bleeding, rectal pain, others Genitourinary: denies: burning, dysuria, flank pain, frequency, hematuria, incontinence, penile discharge, penile sore, pain, testicle pain, testicle swelling, urgency, others Neurological: denies: dizziness, fainting, headache, left sided numbness, left sided weakness, numbness, paresthesia, pre-existing deficit, right sided numbness, right sided weakness, seizure, speech problems, tingling, tremors, weakness, others Musculoskeletal: denies: back pain, gout, joint pain, joint swelling, muscle pain, muscle stiffness, neck pain, others Integumetry: denies: bruises, change in color, change in hair/nails, dryness, laceration, lesions, lumps, rash, wounds, others Allergic/Immunocompromised: denies: Difficulty Healing, Frequent Infections, H samir, Itching, others Hematologic/Lymphatic: denies: anemia, blood clots, easy bleeding, easy bruising, swollen glands, others Endocrine: denies: excessive hunger, excessive sweating, excessive thirst, excessive urination, flushing, intolerance to cold, intolerance to heat, unexplained weight gain, unexplained weight loss, others Psychiatric: denies: anxiety, bipolar disorder, depression, hopeless, panic disorder, schizophrenia, sleepless, suicidal, others All Other Systems: Reviewed and Negative Physical Exam General Appearance: No Apparent Distress, Normal HEENT: Normal ENT Inspection, Pharynx Normal, TMs Normal Neck: Full Range of Motion, Non-Tender, Normal, Normal Inspection Respiratory: Chest Non-Tender, Lungs Clear, No Accessory Muscle Use, No Respiratory Distress, Normal Breath Sounds Cardiovascular: No Edema, No JVD, No Murmur, No Gallop, Normal Peripheral Pulses, Regular Rate/Rhythm Breast Exam: Deferred Gastrointestinal: No Organomegaly, Non Tender, No Pulsatile Mass, Normal Bowel Sounds, Soft Genitalia: Deferred Pelvic: Deferred Rectal: Deferred Extremities: No calf tenderness, Normal capillary refill, Normal inspection, Normal range of motion, Non-tender, No pedal edema Musculoskeletal : Apperance: Normal Neurologic: Alert, bacteriologist pharmaceutical II-XII nml as Tested, No Motor Deficits, Normal Affect, Normal Mood, No Sensory Deficits Cerebellar Function: Normal Reflexes: Normal Skin: Dry, Normal Color, Warm Lymphatic: No Adenopathy Was a procedure done? Was a procedure done?: No GI differential Dx Differential Diagnosis: Dysmenorrhea, Gastritis/PUD, Gastroenteritis, Hepatitis, UTI, Urolithiasis, Dehydration X-Ray, Labs, Meds, VS Vital Signs Date Time Temp Pulse Resp B/P (MAP) Pulse Ox O2 Delivery O2 Flow Rate FiO2 02/18/25 20:24 98.7 78 18 147/94 (111) 98 98.7 Lab Test 02/18/25 22:40 02/18/25 21:53 Range/Units Troponin I High Sensitivity < 3 L 3 L </=54 ng/L White Blood Count 8.4 4.4-10.8 10^3/uL Red Blood Count 4.72 4.5-5.90 10^6/uL Hemoglobin 15.8 13.5-17.5 g/dL Hematocrit 45.8 41.0-53.0 % Mean Corpuscular Volume 97.1 80.0-100.0 fL Mean Corpuscular Hemoglobin 33.6 H 28.0-32.0 pg Mean Corpuscular Hemoglobin Concent 34.6 32.0-36.0 g/dL Red Cell Distribution Width 14.1 11.8-14.3 % Platelet Count 269 140-450 10^3/uL Mean Platelet Volume 7.6 6.9-10.8 fL Neutrophils (%) (Auto) 57.2 37.0-80.0 % Lymphocytes (%) (Auto) 25.5 10.0-50.0 % Monocytes (%) (Auto) 14.7 H 0.0-12.0 % Eosinophils (%) (Auto) 1.9 0.0-7.0 % Basophils (%) (Auto) 0.7 0.0-2.0 % Neutrophils # (Auto) 4.8 1.6-8.6 10 ^3/uL Lymphocytes # (Auto) 2.1 0.4-5.4 10 ^3/uL Monocytes # (Auto) 1.2 0-1.3 10 ^3/uL Eosinophils # (Auto) 0.2 0-0.8 10 ^3/uL Basophils # (Auto) 0.1 0-0.2 10 ^3/uL Nucleated Red Blood Cells 0.1 % Sodium Level 144 136-145 mmol/L Potassium Level 3.7 3.5-5.1 mmol/L Chloride Level 113 H 98-107 mmol/L Carbon Dioxide Level 26 20-31 mmol/L Anion Gap 5 5-15 Blood Urea Nitrogen 8 L 9-23 mg/dL Creatinine 1.00 0.700-1.30 mg/dL Glomerular Filtration Rate Calc 88 >90 mL/min BUN/Creatinine Ratio 8.0 L 10.0-20.0 Serum Glucose 96 74-106 mg/dL Lactic Acid Level 1.0 0.4-2.0 mmol/L Calcium Level 10.2 8.7-10.4 mg/dL Total Bilirubin 0.6 0.2-1.0 mg/dL Aspartate Amino Transferase (AST) 36 13-40 U/L Alanine Aminotransferase (ALT) 48 H 7-40 U/L Alkaline Phosphatase 45 L 46-116 U/L Total Protein 7.5 5.7-8.2 g/dL Albumin 5.1 H 3.2-4.8 g/dL Lipase 63 H 12-53 U/L Time of 1ST Reevaluation: 22:03 Reevaluation 1ST: Unchanged Patient Education/Counseling: Diagnosis, Treatment Family Education/Counseling: No Family Present Departure 1 Departure Time of Disposition: 01:14 (Patient presented with abdominal pain that was co ncerning for possible appendicits, gastritis, cholecystitis, colitis, gastroenteritis, or orther possible surgical emergency. Data: 1. I ordered and reviewed the result of at least 3 labs including a CBC, BMP, and Urinalysis. 2. I independently interpreted the following tests: CT Abdoment and Pelvis is concerning for benign abdomen .Risk:This patient has a high risk of morbidity du e to further diagnostic testing or treatment and may suffer from an acute abdominal process disorder. Fortunately workup reveals likely gastroenteritis _ and patient can be safely discharged to home with outpatient follow up.) Impression: Primary Impression: Acute abdominal pain Additional Impression: Gastritis Qualified Codes: K29.00 - Acute gastritis without bleeding Disposition: 01 HOME / SELF CARE / HOMELESS Condition: Stable Additional Instructions: Your workup today was benign. You likely have gastroenteritis. You can take [id number] omeprazole daily for 2 weeks. You should follow up with your regular doctor this week. If your symptoms worsen or if any other concerns please return to the emergency room. Discharged With: Self Critical Care Note Critical Care Time?: No Stability Stability form required: No Heart Score Heart Score: Heart Score Response (Comments) Value History N/A 0 EKG N/A 0 Age N/A 0 Risk Factors N/A 0 Troponin N/A 0 Total 0 I personally scribed for ARMANDO MADISON MD ([email or web address]) on 02/18/25 at 22:02. Electronically submitted by Omar Brown [email or web address]). ARMANDO MADISON MD Feb 18, 2025 22:02
[2025-02-18 22:03] LABS: Basophils # (auto) 0.1 10 ^3/uL (0-0.2); Basophils % (auto) 0.7 % (0.0-2.0); Eosinophils # (auto) 0.2 10 ^3/uL (0-0.8); Eosinophils % (auto) 1.9 % (0.0-7.0); Hematocrit 45.8 % (41.0-53.0); Hemoglobin 15.8 g/dL (13.5-17.5); Lymphocytes # (auto) 2.1 10 ^3/uL (0.4-5.4); Lymphocytes % (auto) 25.5 % (10.0-50.0); Mean Corpuscular Hemoglobin 33.6 pg (28.0-32.0); Mean Corpuscular Hgb Conc. 34.6 g/dL (32.0-36.0); Mean Corpuscular Volume 97.1 fL (80.0-100.0); Monocytes # (auto) 1.2 10 ^3/uL (0-1.3); Monocytes % (auto) 14.7 % (0.0-12.0); Neutrophils # (auto) 4.8 10 ^3/uL (1.6-8.6); Neutrophils % (auto) 57.2 % (37.0-80.0); Nucleated Red Blood Cells % 0.1 %; Platelet Count (auto) 269 10^3/uL (140-450); Red Blood Cells 4.72 10^6/uL (4.5-5.90); Red Cell Distribution Width 14.1 % (11.8-14.3); White Blood Cell 8.4 10^3/uL (4.4-10.8)
[2025-02-18 22:21] LABS: Anion Gap 5 (5-15); Aspartate Aminotransferase 36 U/L (13-40); Calcium 10.2 mg/dL (8.7-10.4); Carbon Dioxide 26 mmol/L (20-31); Glucose 96 mg/dL (74-106); Potassium 3.7 mmol/L (3.5-5.1); Sodium 144 mmol/L (136-145); Total Protein 7.5 g/dL (5.7-8.2)
[2025-02-18 22:22] LABS: Bilirubin, Total 0.6 mg/dL (0.2-1.0)
[2025-02-18 22:31] LABS: Alanine Aminotransferase 48 U/L (7-40); Albumin 5.1 g/dL (3.2-4.8); Alkaline Phosphatase 45 U/L (46-116); Blood Urea Nitrogen 8 mg/dL (9-23); Chloride 113 mmol/L (98-107); Lipase 63 U/L (12-53)
--- NOTE | 2025-02-19 00:12 | DVH ---
Exam: CT CT AB PEL WITH IV CON ONLY History: abdominal pain COMPARISON: CT CT AB PEL WITH IV CON ONLY on DOS: 10/08/24, CT CT AB PEL WITH IV CON ONLY on DOS: 08/29/24 Technique: Multidetector spiral CT of the abdomen and pelvis was performed from lung bases to pubic s ymphysis. Intravenous contrast was administered during this examination. Portal venous imaging was o btained. Axial, coronal and sagittal multiplanar reformats were performed by the technologist on a [employer] workstation. Radiation Dose : 1. Abdomen/Pelvis: CTDIvol 11.66 mGy, DLP 686.52 mGy*cm. CONTRAST: Type of contrast: Omnipaque 300 Contrast injected: 100 ml Contrast ingested: None Findings: Lung Bases: No acute or significant lung base finding. Normal heart size. No pleural or pericardial effusion. Liver: The liver is within the upper limits of normal in size, measuring 19.1 cm in craniocaudal dime nsion. Mild diffuse hepatic steatosis. No focal lesions. Normal hepatic vascular enhancement. Gallbladder and Biliary Tree: Unremarkable Spleen: Unremarkable Pancreas: The pancreas is normal in appearance without focal lesions or abnormal enhancement. Adrenal Glands: Unremarkable Kidneys: No hydronephrosis. Bladder: Unremarkable Bowel: The stomach is grossly normal in appearance. Small bowel and colon are normal in caliber and d istribution. The appendix is normal. Ascites: Absent Lymphadenopathy: No mesenteric, retroperitoneal or periportal lymphadenopathy. Abdominal Wall and Mesentery: Unremarkable. Vasculature: The visualized abdominal aorta is normal in size and caliber. Atherosclerotic vascular c alcifications. Abdominal and pelvic vessels demonstrate normal enhancement. Pelvic Organs: Unremarkable. Left inguinal hernia. Musculoskeletal: No aggressive focal bony lesions, acute fractures or dislocation. IMPRESSION: 1. No acute abdominal or pelvic finding. 2. Borderline hepatomegaly and mild diffuse hepatic steatosis. Radiation optimization: All CT scans at this facility use at least one of these dose optimization maggie hniques: automated exposure control mA and/or kV adjustment per patient size (includes targeted exam s where dose is matched to clinical indication) or iterative reconstruction.
[2025-02-19 02:29] VITALS: TEMP 98.6
[2025-02-19 02:30] VITALS: PULSE 93; RESP 20; O2SAT 98
[2025-02-19] MEDS: IOHEXOL 300 MG/ML 100ML BOTTLE IJ ONE (02:32)
[2025-02-19] MEDS: ONDANSETRON HCL 4 MG/2 ML VIAL IV ONE (02:34)
[2025-02-19] MEDS: SODIUM CHLORIDE 0.9% 1,000 ML IV ONE (02:34)
[2025-02-19] MEDS: MORPHINE SULFATE 4 MG/ML SYR/VIAL IV ONE (02:34)
[2025-02-19 04:43] VITALS: BP 128/77; PULSE 86; RESP 18; O2SAT 96
== END 2025-02-19 04:52 | disposition home or self-care (01) ==
LOC: EDBD 20:19 → ER 20:19
DX: K29.70 Gastritis, unspecified, without bleeding (principal); I10 Essential (primary) hypertension; E78.5 Hyperlipidemia, unspecified; F17.210 Nicotine dependence, cigarettes, uncomplicated; Z79.899 Other long term (current) drug therapy; Z98.890 Other specified postprocedural states; Z86.73 Personal history of transient ischemic attack (TIA), and cerebral infarction without residual deficits; Z87.11 Personal history of peptic ulcer disease; Z87.19 Personal history of other diseases of the digestive system; Z88.6 Allergy status to analgesic agent
CPT/HCPCS: 36415; 74177; 80053; 83605; 83690; 84484; 85025; 96361; 96374; 96375; 99285; J2270; J2405; J7030; Q9967

== ENCOUNTER 2025-02-26 22:28 | Emergency (ER) | payer OTHER, MEDICAID ==
[~2025-02-26] VITALS: Ht 177.8 cm; Wt 81.7 kg
[2025-02-26 22:35] VITALS: BP 119/86; PULSE 86; RESP 16; TEMP 97.3; O2SAT 95
[2025-02-27 00:16] LABS: Basophils # (auto) 0.1 10 ^3/uL (0-0.2); Basophils % (auto) 1.3 % (0.0-2.0); Eosinophils # (auto) 0.2 10 ^3/uL (0-0.8); Eosinophils % (auto) 3.1 % (0.0-7.0); Hematocrit 43.4 % (41.0-53.0); Hemoglobin 14.9 g/dL (13.5-17.5); Lymphocytes # (auto) 2.4 10 ^3/uL (0.4-5.4); Lymphocytes % (auto) 33.6 % (10.0-50.0); Mean Corpuscular Hgb Conc. 34.3 g/dL (32.0-36.0); Mean Corpuscular Volume 96.4 fL (80.0-100.0); Monocytes # (auto) 0.8 10 ^3/uL (0-1.3); Monocytes % (auto) 10.6 % (0.0-12.0); Neutrophils # (auto) 3.7 10 ^3/uL (1.6-8.6); Neutrophils % (auto) 51.4 % (37.0-80.0); Nucleated Red Blood Cells % 0.1 %; Platelet Count (auto) 298 10^3/uL (140-450); Red Blood Cells 4.51 10^6/uL (4.5-5.90); Red Cell Distribution Width 13.4 % (11.8-14.3); White Blood Cell 7.3 10^3/uL (4.4-10.8)
[2025-02-27 00:39] LABS: Alanine Aminotransferase 60 U/L (7-40); Albumin 4.7 g/dL (3.2-4.8); Alkaline Phosphatase 43 U/L (46-116); Anion Gap 8 (5-15); Aspartate Aminotransferase 43 U/L (13-40); BUN/Creatinine Ratio 6.5 (10.0-20.0); Bilirubin, Total 0.3 mg/dL (0.2-1.0); Blood Urea Nitrogen 5 mg/dL (9-23); Calcium 8.8 mg/dL (8.7-10.4); Carbon Dioxide 24 mmol/L (20-31); Chloride 105 mmol/L (98-107); Glucose 105 mg/dL (74-106); Lipase 41 U/L (12-53); Potassium 3.9 mmol/L (3.5-5.1); Sodium 137 mmol/L (136-145); Total Protein 7.2 g/dL (5.7-8.2)
[2025-02-27] MEDS: MORPHINE SULFATE 4 MG/ML SYR/VIAL IV ONE (01:52)
[2025-02-27] MEDS: ONDANSETRON HCL 4 MG/2 ML VIAL IV ONE (01:52)
--- NOTE | 2025-02-27 01:55 | DVH ---
Exam: CT CHST AB PEL WO CON-NO IV/ORAL History: abd pain Comparison Study: CT CT AB PEL WO CON-NO ORAL OR IV on DOS: 10/18/24, CT CT AB PEL WO CON-NO ORAL OR IV on DOS: 10/14/24, CT CT AB PEL WO CON-NO ORAL OR IV on DOS: 10/11/24, CT CT AB PEL WO CON-NO ORAL OR IV on DOS: 10/01/24, CT CT AB PEL WO CON-NO ORAL OR IV on DOS: 09/23/24None available at time of di ctation. Technique: Multidetector spiral CT of the chest, abdomen and pelvis was performed from lower neck to pubic symphysis Axial, coronal and sagittal multiplanar reformats were performed by the technologist on a separate workstation. Radiation Dose : 1. Chest/Abdomen/Pelvis: CTDIvol 8.44 mGy, DLP 618.87 mGy*cm. Findings: Lower neck: Normal thyroid. Lungs: No focal consolidation, pleural effusion or pneumothorax. Heart/Vascular Structures: Normal heart size. No pericardial effusion. Lymph Nodes: No adenopathy Pleura: No pleural effusion or significant pneumothorax. Liver: The liver is enlarged, measuring 19.6 cm in craniocaudal dimension. No focal lesions. Normal hepatic vascular enhancement. Gallbladder and Biliary Tree: Unremarkable Spleen: Unremarkable Pancreas: The pancreas is normal in appearance without focal lesions or abnormal enhancement. Adrenal Glands: Unremarkable Kidneys: Kidneys demonstrate normal symmetric enhancement without focal lesions, calculi or hydroneph rosis. Bladder: Unremarkable Bowel: The stomach is grossly normal in appearance. Small bowel and colon are normal in caliber and d istribution. The appendix is normal. Ascites: Absent Lymphadenopathy: No mesenteric, retroperitoneal or periportal lymphadenopathy. Abdominal Wall and Mesentery: Unremarkable. Vasculature: The visualized abdominal aorta is normal in size and caliber. Atherosclerotic vascular c alcifications. Abdominal and pelvic vessels demonstrate normal enhancement. Pelvic Organs: Unremarkable Musculoskeletal: No aggressive focal bony lesions, acute fractures or dislocation. Degenerative mehta es of the lower lumbar spine include severe disc height loss at the L5-S1 level with adjacent endplat e sclerosis and anterior osteophytosis. No evidence of compression fracture. IMPRESSION: 1. No acute findings involving the chest, abdomen or pelvis. 2. Hepatomegaly.
[2025-02-27] MEDS: ONDANSETRON ODT 4 MG TAB PO ONE (01:56)
[2025-02-27] MEDS ORDERED: ZOFR4T PO (02:31)
[2025-02-27] MEDS ORDERED: OMEP-448 PO (02:31)
--- NOTE | 2025-02-27 02:32 | ED.PDOC ---
GI ASSESSMENT HPI Comments 59-year-old male brought in by EMS. Patient complaining of right lower quadrant abdominal pain. Patient states he was seen at [facility] yesterday. States nothing he was done. Says he has been having nausea vomiting diarrhea associated with the pain. Nothing makes it better, nothing makes it worse. Patient was report history of drinking. States it did drank �a few beers today�. Chief Complaint: Abdominal Pain Time Seen by MD: 23:59 Primary Care Provider: UNKNOWN Reviewed Notes: Nurses Notes Allergies: Coded Allergies: Caffeine (Verified Allergy, Severe, 09/13/11) Phenacetin (Verified Allergy, Severe, 09/13/11) Aspirin (Unverified Allergy, Unknown, 04/30/14) Home Meds Active Scripts Amoxicillin & Pot Clavulanate (AUGMENTIN TABLET) 875 Mg Tb, 875 MG PO BID for 10 Days, #20 TAB Prov:YOHANNES SALDANA MD 10/21/24 Diphenoxylate W/ Atropine (Lomotil) 2.5 Mg Tab, 1 TAB PO TID, #30 TAB Prov:SIRIA MOREAU MD 09/23/24 Ibuprofen (Ibuprofen) 800 Mg Tab, 1 TAB PO TID PRN for 5 Days, #15 TAB 1 Refill Prov:ELIZA ARREOLA 08/30/24 Gabapentin (Gabapentin) 300 Mg Cap, 1 CAP PO TID, #30 CAP Prov:CRISTIAN KAUR MD 07/13/24 Dicyclomine Hcl (BENTYL CAPSULE) 10 Mg Cp, 2 CAP PO TID, #30 CAP abdominal cramping Prov:CRISTIAN KAUR MD 07/13/24 Pantoprazole Sodium Sesquihydr (Pantoprazole Sodium Dr) 40 Mg Tab, 40 MG PO DAILY, #60 TAB Prov:CRISTIAN KAUR MD 07/13/24 Albuterol Sulfate (Albuterol Sulfate Hfa) 108 Mcg/Act Aer, 108 MCG IN Q4HPRN PRN, #1 AER Prov:RUSTY PADILLA PAC 02/24/24 Ondansetron Odt 4MG Tab (ZOFRAN PO) 4 Mg Tb, 4 MG PO Q6HP PRN, #20 TAB ODT TAB-DISSOLVE IN MOUTH, THEN SWALLOW Prov:MELINA DEWEY PAC 07/14/23 Celecoxib (Celebrex) 100 Mg Cap, 100 MG PO DAILY PRN, #14 MG Prov:CESAR SUMMERS N.P. 11/18/13 Cyclobenzaprine Hcl (FLEXERIL) 10 Mg Tab, 10 MG PO TID PRN, #20 TAB Prov:CESAR SUMMERS N.P. 11/18/13 Reported Medications Acetaminophen (Acetaminophen) 325 Mg Tab, 325 MG PO Q4HP PRN for MILD PAIN for 30 Days, MG 0 Refills 09/27/24 Atorvastatin Calcium (Lipitor) 40 Mg Tab, 1 TAB PO DAILY, #30 TAB 5 Refills 09/27/24 Hydrocodone-Acetaminophen (Hydrocodone/Acetaminophen) 1 Tab Tab, #30 08/26/13 Divalproex Sodium (Depakote Er) 500 Mg Tab 02/23/10 Information Source: Patient Mode of Arrival: EMS Past Medical History PAST MEDICAL HISTORY: CVA, High Lipids, HTN, PUD, Seizures Surgical History: Hernia Repair Family History Family History: Reviewed,noncontributory to illness, Family hx of heart harshad Social History Smoker: Cigarettes Alcohol: Occasionally Drugs: Denies Drug Use Lives In: Home Constitutional: reports: malaise, weakness; denies: chills, diaphoresis, fatigue, sweats, others EENTM: denies: blurred vision, double vision, ear bleeding, ear discharge, ear drainage, ear pain, ear ringing, eye pain, eye redness, hearing loss, mouth pain, mouth swelling, nasal discharge, nose bleeding, nose congestion, nose leopoldo n, photophobia, tearing, throat pain, throat swelling, voice changes, others Respiratory: denies: cough, hemoptysis, orthopnea, SOB at rest, shortness of breath, SOB with excertion, stridor, wheezing, others Cardiovascular: denies: chest pain, dizzy spells, diaphoresis, Dyspnea on exertion, edema, irregular heart beat, left arm pain, lightheadedness, palpitations, PND, syncope, others Gastrointestinal: reports: diarrhea, nausea, vomiting; denies: abdomen distended, abdominal pain, blood streaked bowels, constipated, dysphagia, difficulty swallowing, hematemesis, melena, poor appetite, poor fluid intake, rectal bleeding, rectal pain, others Genitourinary: denies: burning, dysuria, flank pain, frequency, hematuria, incontinence, penile discharge, penile sore, pain, testicle pain, testicle swelling, urgency, others Neurological: denies: dizziness, fainting, headache, left sided numbness, left sided weakness, numbness, paresthesia, pre-existing deficit, right sided num bness, right sided weakness, seizure, speech problems, tingling, tremors, weakness, others Musculoskeletal: denies: back pain, gout, joint pain, joint swelling, muscle pain, muscle stiffness, neck pain, others Integumetry: denies: bruises, change in color, change in hair/nails, dryness, laceration, lesions, lumps, rash, wounds, others Physical Exam General Appearance: Moderate Distress, Normal HEENT: Normal ENT Inspection, Pharynx Normal, TMs Normal Neck: Full Range of Motion, Non-Tender, Normal, Normal Inspection Respiratory: Chest Non-Tender, Lungs Clear, No Accessory Muscle Use, No Respiratory Distress, Normal Breath Sounds Cardiovascular: No Edema, No JVD, No Murmur, No Gallop, Normal Peripheral Pulses, Regular Rate/Rhythm Breast Exam: Deferred Gastrointestinal: No Organomegaly, Non Tender, No Pulsatile Mass, Normal Bowel Sounds, Soft Genitalia: Deferred Pelvic: Deferred Rectal: Deferred Extremities: No calf tenderness, Normal capillary refill, Normal inspection, Normal range of motion, Non-tender, No pedal edema Musculoskeletal : Apperance: Normal Neurologic: Alert, fertilizing machine operator II-XII nml as Tested, No Motor Deficits, Normal Affect, Normal Mood, No Sensory Deficits Cerebellar Function: Normal Reflexes: Normal Skin: Dry, Normal Color, Warm Lymphatic: No Adenopathy Was a procedure done? Was a procedure done?: No GI differential Dx Differential Diagnosis: Cholecystitis, Constipation, Gastritis/PUD, Gastroenteritis, GI hemorrhage, Ischemic Bowel X-Ray, Labs, Meds, VS Vital Signs Date Time Temp Pulse Resp B/P (MAP) Pulse Ox O2 Delivery O2 Flow Rate FiO2 02/27/25 00:36 Room Air* 0 21 02/26/25 22:35 97.3 86 16 119/86 (97) 95 97.3 02/26/25 22:33 90 Lab Test 02/27/25 00:07 Range/Units White Blood Count 7.3 4.4-10.8 10^3/uL Red Blood Count 4.51 4.5-5.90 10^6/uL Hemoglobin 14.9 13.5-17.5 g/dL Hematocrit 43.4 41.0-53.0 % Mean Corpuscular Volume 96.4 80.0-100.0 fL Mean Corpuscular Hemoglobin 33.0 H 28.0-32.0 pg Mean Corpuscular Hemoglobin Concent 34.3 32.0-36.0 g/dL Red Cell Distribution Width 13.4 11.8-14.3 % Platelet Count 298 140-450 10^3/uL Mean Platelet Volume 7.4 6.9-10.8 fL Neutrophils (%) (Auto) 51.4 37.0-80.0 % Lymphocytes (%) (Auto) 33.6 10.0-50.0 % Monocytes (%) (Auto) 10.6 0.0-12.0 % Eosinophils (%) (Auto) 3.1 0.0-7.0 % Basophils (%) (Auto) 1.3 0.0-2.0 % Neutrophils # (Auto) 3.7 1.6-8.6 10 ^3/uL Lymphocytes # (Auto) 2.4 0.4-5.4 10 ^3/uL Monocytes # (Auto) 0.8 0-1.3 10 ^3/uL Eosinophils # (Auto) 0.2 0-0.8 10 ^3/uL Basophils # (Auto) 0.1 0-0.2 10 ^3/uL Nucleated Red Blood Cells 0.1 % Sodium Level 137 136-145 mmol/L Potassium Level 3.9 3.5-5.1 mmol/L Chloride Level 105 98-107 mmol/L Carbon Dioxide Level 24 20-31 mmol/L Anion Gap 8 5-15 Blood Urea Nitrogen 5 L 9-23 mg/dL Creatinine 0.77 0.700-1.30 mg/dL Glomerular Filtration Rate Calc 104 >90 mL/min BUN/Creatinine Ratio 6.5 L 10.0-20.0 Serum Glucose 105 74-106 mg/dL Calcium Level 8.8 8.7-10.4 mg/dL Total Bilirubin 0.3 0.2-1.0 mg/dL Aspartate Amino Transferase (AST) 43 H 13-40 U/L Alanine Aminotransferase (ALT) 60 H 7-40 U/L Alkaline Phosphatase 43 L 46-116 U/L Total Protein 7.2 5.7-8.2 g/dL Albumin 4.7 3.2-4.8 g/dL Lipase 41 12-53 U/L Current Medications Medications (Trade) Dose Ordered Sig/Yareli Route Start Time Stop Time Status Last Admin Ondansetron HCl (Zofran Po) 4 mg ONCE ONCE PO 02/27/25 01:52 02/27/25 01:53 DC 02/27/25 01:56 X-Ray, Labs, Meds, VS Comment Imaging: X-rays and CT scans were reviewed and interpreted by this provider, imaging shows no fractures and no pathological disease. Pending radiology vinay bradshaw. Laboratory: Labs reviewed and interpreted by this provider. No significant abnormalities noted. Patient has prior medical visits reviewed. Med reconciliation performed Vital signs reviewed Time of 1ST Reevaluation: 02:32 Reevaluation 1ST: Improved Patient Education/Counseling: Diagnosis, Treatment, Need For Follow Up (Follow up with PCP in the next 2-4 days.) Family Education/Counseling: Diagnosis Departure 1 Departure Time of Disposition: 02:30 Impression: Primary Impression: Gastritis Qualified Codes: K29.20 - Alcoholic gastritis without bleeding Disposition: 01 HOME / SELF CARE / HOMELESS Condition: Fair e-Prescriptions Ondansetron Odt 4MG Tab (ZOFRAN PO) 4 Mg Tb 4 MG PO TID, #20 TAB ODT TAB-DISSOLVE IN MOUTH, THEN SWALLOW Prov: OLENA WHARTON 02/27/25 Omeprazole (Omeprazole Dr) 40 Mg Cap 40 MG PO DAILY, #20 CAP Prov: OLENA WHARTON 02/27/25 Discharged With: Self Critical Care Note Critical Care Time?: No Stability Stability form required: No Heart Score Heart Score: Heart Score Response (Comments) Value History N/A 0 EKG N/A 0 Age N/A 0 Risk Factors N/A 0 Troponin N/A 0 Total 0 OLENA WHARTON February 27, 2025 02:32
--- NOTE | 2025-02-27 06:41 | ECG ---
[facility] Test Date: 2025-02-26 Test Time: 22:33:38 Pat Name: ZANDER NAVAS Department: ED Room: Gender: M Briquette Molder: JOLENE : 1965 Requested By: EMERGENCY EMERGENCY Order Number: [id number] Reading MD: Shorty Mitchell Measurements Intervals [place] Rate: 90 P: 55 [place]: 166 QRS: 53 QRSD: 91 T: 45 QT: 354 QTc: 433 Interpretive Statements Sinus rhythm Abnormal R-wave progression, early transition Electronically Signed On 02-27-2025 21:09:56 PDT by Shorty Mitchell Please click the below link to view image of tracing.
== END 2025-02-27 02:52 | disposition home or self-care (01) ==
LOC: ER 22:28 → EDBD 22:28 → ER 02-27 02:52
DX: K29.70 Gastritis, unspecified, without bleeding (principal); F17.210 Nicotine dependence, cigarettes, uncomplicated; I10 Essential (primary) hypertension; E78.5 Hyperlipidemia, unspecified; Z86.73 Personal history of transient ischemic attack (TIA), and cerebral infarction without residual deficits; Z87.11 Personal history of peptic ulcer disease; Z79.899 Other long term (current) drug therapy; Z86.69 Personal history of other diseases of the nervous system and sense organs; Z98.890 Other specified postprocedural states; Z88.6 Allergy status to analgesic agent; Z88.8 Allergy status to other drugs, medicaments and biological substances
CPT/HCPCS: 36415; 71250; 74176; 80053; 83690; 85025; 93005; 99284; Q0162

== ENCOUNTER 2025-03-22 16:29 | Emergency (ER) | payer OTHER, MEDICAID ==
[~2025-03-22] VITALS: Ht 190.5 cm; Wt 88.4 kg
[~2025-03-22 16:29] MED LIST changes: +OMEP-448 PO
[2025-03-22 16:37] VITALS: BP 111/68; RESP 21; TEMP 98.3; O2SAT 93
[2025-03-22] MEDS ORDERED: HYDROcodone-ACET 5/325MG TAB PO ONE (17:15)
[2025-03-22 17:28] VITALS: PULSE 102
--- NOTE | 2025-03-22 17:30 | ED.PDOC ---
GI ASSESSMENT HPI Comments 59y M who presents to the ED for chief complaint of abdominal pain. Pt states he has been having RLQ abdominal pain since yesterday. Pt states the pain is constant, radiating to the R flank, with no associated exacerbating or relieving factors. Pt has associated hematuria but otherwise denies any other symptoms. Pt denies any other symptoms at this time. Chief Complaint: Abdominal Pain Time Seen by MD: 17:28 Primary Care Provider: UNKNOWN Reviewed Notes: Medications, Allergies Allergies: Coded Allergies: Caffeine (Verified Allergy, Severe, 09/13/11) Phenacetin (Verified Allergy, Severe, 09/13/11) Aspirin (Unverified Allergy, Unknown, 04/30/14) Home Meds Active Scripts Ondansetron Odt 4MG Tab (ZOFRAN PO) 4 Mg Tb, 4 MG PO TID, #20 TAB ODT TAB-DISSOLVE IN MOUTH, THEN SWALLOW Prov:OLENA WHARTON 02/27/25 Omeprazole (Omeprazole Dr) 40 Mg Cap, 40 MG PO DAILY, #20 CAP Prov:OLENA WHARTON 02/27/25 Amoxicillin & Pot Clavulanate (AUGMENTIN TABLET) 875 Mg Tb, 875 MG PO BID for 10 Days, #20 TAB Prov:YOHANNES SALDANA MD 10/21/24 Diphenoxylate W/ Atropine (Lomotil) 2.5 Mg Tab, 1 TAB PO TID, #30 TAB Prov:SIRIA MOREAU MD 09/23/24 Ibuprofen (Ibuprofen) 800 Mg Tab, 1 TAB PO TID PRN for 5 Days, #15 TAB 1 Refill Prov:ELIZA ARREOLA 08/30/24 Gabapentin (Gabapentin) 300 Mg Cap, 1 CAP PO TID, #30 CAP Prov:CRISTIAN KAUR MD 07/13/24 Dicyclomine Hcl (BENTYL CAPSULE) 10 Mg Cp, 2 CAP PO TID, #30 CAP abdominal cramping Prov:CRISTIAN KAUR MD 07/13/24 Pantoprazole Sodium Sesquihydr (Pantoprazole Sodium Dr) 40 Mg Tab, 40 MG PO DAILY, #60 TAB Prov:CRISTIAN KAUR MD 07/13/24 Albuterol Sulfate (Albuterol Sulfate Hfa) 108 Mcg/Act Aer, 108 MCG IN Q4HPRN PRN, #1 AER Prov:PADILLARUSTY PAC 02/24/24 Ondansetron Odt 4MG Tab (ZOFRAN PO) 4 Mg Tb, 4 MG PO Q6HP PRN, #20 TAB ODT TAB-DISSOLVE IN MOUTH, THEN SWALLOW Prov:MELINA DEWEY PAC 07/14/23 Celecoxib (Celebrex) 100 Mg Cap, 100 MG PO DAILY PRN, #14 MG Prov:CESAR SUMMERS N.P. 11/18/13 Cyclobenzaprine Hcl (FLEXERIL) 10 Mg Tab, 10 MG PO TID PRN, #20 TAB Prov:CESAR SUMMERS N.P. 11/18/13 Reported Medications Acetaminophen (Acetaminophen) 325 Mg Tab, 325 MG PO Q4HP PRN for MILD PAIN for 30 Days, MG 0 Refills 09/27/24 Atorvastatin Calcium (Lipitor) 40 Mg Tab, 1 TAB PO DAILY, #30 TAB 5 Refills 09/27/24 Hydrocodone-Acetaminophen (Hydrocodone/Acetaminophen) 1 Tab Tab, #30 08/26/13 Divalproex Sodium (Depakote Er) 500 Mg Tab 02/23/10 Information Source: Patient, Emergency Med Personnel Mode of Arrival: EMS Past Medical History PAST MEDICAL HISTORY: CVA, High Lipids, HTN, PUD, Seizures Surgical History: Hernia Repair Family History Family History: Reviewed,noncontributory to illness, Family hx of heart harshad Social History Smoker: Cigarettes Alcohol: Occasionally Drugs: Denies Drug Use Lives In: Home Constitutional: denies: chills, diaphoresis, fatigue, fever, malaise, sweats, weakness, others EENTM: denies: blurred vision, double vision, ear bleeding, ear discharge, ear drainage, ear pain, ear ringing, eye pain, eye redness, hearing loss, mouth pain, mouth swelling, nasal discharge, nose bleeding, nose congestion, nose pain, photophobia, tearing, throat pain, throat swelling, voice changes, others Respiratory: denies: cough, hemoptysis, orthopnea, SOB at rest, shortness of breath, SOB with excertion, stridor, wheezing, others Cardiovascular: denies: chest pain, dizzy spells, diaphoresis, Dyspnea on exertion, edema, irregular heart beat, left arm pain, lightheadedness, palpit ations, PND, syncope, others Gastrointestinal: reports: abdominal pain; denies: abdomen distended, blood streaked bowels, constipated, diarrhea, dysphagia, difficulty swallowing, hematemesis, melena, nausea, poor appetite, poor fluid intake, rectal bleeding, rectal pain, vomiting, others Genitourinary: reports: hematuria; denies: burning, dysuria, flank pain, frequency, incontinence, penile discharge, penile sore, pain, testicle pain, testicle swelling, urgency, others Neurological: denies: dizziness, fainting, headache, left sided numbness, left sided weakness, numbness, paresthesia, pre-existing deficit, right sided numbness, right sided weakness, seizure, speech problems, tingling, tremors, weakness, others Musculoskeletal: denies: back pain, gout, joint pain, joint swelling, muscle pain, muscle stiffness, neck pain, others Integumetry: denies: bruises, change in color, change in hair/nails, dryness, laceration, lesions, lumps, rash, wounds, others Allergic/Immunocompromised: denies: Difficulty Healing, Frequent Infections, Hives, Itching, others Hematologic/Lymphatic: denies: anemia, blood clots, easy bleeding, easy bruising, swollen glands, others Endocrine: denies: excessive hunger, excessive sweating, excessive thirst, excessive urination, flushing, intolerance to cold, intolerance to heat, unexplained weight gain, unexplained weight loss, others Psychiatric: denies: anxiety, bipolar disorder, depression, hopeless, panic disorder, schizophrenia, sleepless, suicidal, others All Other Systems: Reviewed and Negative Physical Exam General Appearance: No Apparent Distress, Normal HEENT: Normal ENT Inspection, Pharynx Normal, TMs Normal Neck: Full Range of Motion, Non-Tender, Normal, Normal Inspection Respiratory: Chest Non-Tender, Lungs Clear, No Accessory Muscle Use, No Respiratory Distress, Normal Breath Sounds Cardiovascular: No Edema, No JVD, No Murmur, No Gallop, Normal Peripheral Pulses, Regular Rate/Rhythm Breast Exam: Deferred Gastrointestinal: No Organomegaly, No Pulsatile Mass, Normal Bowel Sounds, RLQ, Soft, Other (right flank ttp) Genitalia: Deferred Pelvic: Deferred Rectal: Deferred Extremities: No calf tenderness, Normal capillary refill, Normal inspection, Normal range of motion, Non-tender, No pedal edema Musculoskeletal : Apperance: Normal Neurologic: Alert, special effects makeup artist II-XII nml as Tested, No Motor Deficits, Normal Affect, Normal Mood, No Sensory Deficits Cerebellar Function: Normal Reflexes: Normal Skin: Dry, Normal Color, Warm Lymphatic: No Adenopathy Was a procedure done? Was a procedure done?: No GI differential Dx Differential Diagnosis: Appendicitis, Pancreatitis, Dehydration, Electrolyte Imbalance, Bacterial, Viral, Kidney Stone X-Ray, Labs, Meds, VS Vital Signs Date Time Temp Pulse Resp B/P (MAP) Pulse Ox O2 Delivery O2 Flow Rate FiO2 03/22/25 17:28 102 03/22/25 16:37 98.3 101 21 111/68 (82) 93 98.3 Time of 1ST Reevaluation: 18:00 Reevaluation 1ST: Unchanged Time of 2ND Reevaluation: 18:05 Reevaluation 2ND: pt eloped soon after seen Patient Education/Counseling: Diagnosis, Treatment Family Education/Counseling: No Family Present Departure 1 Departure Time of Disposition: 18:04 Impression: Primary Impression: Abdominal pain Qualified Codes: R10.9 - Unspecified abdominal pain Disposition: 07 LEFT AWOL/ELOPED Condition: Other (unknown) Critical Care Note Critical Care Time?: No Stability Stability form required: No Heart Score Heart Score: Heart Score Response (Comments) Value History N/A 0 EKG N/A 0 Age N/A 0 Risk Factors N/A 0 Troponin N/A 0 Total 0 I personally scribed for JOYCE SAUCEDO MD [facility] on 03/22/25 at 17:30. Electronically submitted by Flor SUAZO). JOYCE SAUCEDO MD March 22, 2025 17:30
--- NOTE | 2025-03-22 18:59 | ECG ---
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
== END 2025-03-23 04:56 | disposition left against medical advice (07) ==
LOC: EDBD 16:29 → ER 16:35
DX: R10.31 Right lower quadrant pain (principal); E78.5 Hyperlipidemia, unspecified; I10 Essential (primary) hypertension; F17.210 Nicotine dependence, cigarettes, uncomplicated; Z86.73 Personal history of transient ischemic attack (TIA), and cerebral infarction without residual deficits; Z79.899 Other long term (current) drug therapy; Z87.11 Personal history of peptic ulcer disease; Z88.6 Allergy status to analgesic agent; Z98.890 Other specified postprocedural states
CPT/HCPCS: 93005